=== PATIENT | male | born 1950 | race Caucasian/White ===

== ENCOUNTER 2016-09-22 10:08 | Inpatient (IN) | payer MEDICARE, OTHER ==
--- NOTE | 2016-09-22 10:21 | ER Document Report ---
ED Medical Screen (RME) - General Stated Complaint: LEG PAIN Notes: 66 yo male c/o having difficulty breathing, swelling to both legs, shortness of breath. Pt was seen in ED 09/11 for CHF. Pt has been increasing Lasix without improvement. Sat 82%. No chest pain TRAVEL OUTSIDE OF THE [place] IN LAST 30 DAYS: No - Related Data Allergies/Adverse Reactions: aspirin Allergy (Verified 09/22/16 10:16) Sulfa (Sulfonamide Antibiotics) Allergy (Verified 09/22/16 10:16)
[2016-09-22] MEDS ORDERED: FUROSEMIDE INJ/PF 40 MG/4 ML SDV IV ONE (10:57)
[2016-09-22 11:24] LABS: ABSOLUTE BASOPHILS # (AUTO) 0.1 10^3/uL (0.0-0.2); ABSOLUTE EOSINOPHILS # (AUTO) 0.4 10^3/uL (0.0-0.6); ABSOLUTE MONOCYTES (AUTO) 0.7 10^3/uL (0.1-1.4); ABSOLUTE NEUT (AUTO) 6.2 10^3/uL (1.7-8.2); BASOPHILS % (AUTO) 1.3 % (0-2); EOSINOPHILS % (AUTO) 3.7 % (0-6); HEMATOCRIT 37.4 % (37.9-51.0); HGB HCT DIFFERENCE -1.4; LYMPHOCYTES % (AUTO) 21.1 % (13-45); MEAN CORPUSCULAR HEMOGLOBIN 30.7 pg (27.0-33.4); MEAN CORPUSCULAR HGB CONC 32.1 g/dL (32.0-36.0); MEAN CORPUSCULAR VOLUME 96 fl (80-97); MONOCYTES % (AUTO) 7.7 % (3-13); RED CELL DISTRIBUTION WIDTH 15.3 % (11.5-14.0); SEGMENTED NEUTROPHILS % (AUTO) 66.2 % (42-78); WHITE BLOOD COUNT 9.4 10^3/uL (4.0-10.5)
[2016-09-22 11:26] LABS: APPEARANCE,URINE CLEAR; BILIRUBIN,URINE NEGATIVE (NEGATIVE); GLUCOSE, URINE NEGATIVE (NEGATIVE); KETONES,URINE NEGATIVE (NEGATIVE); LEUKOCYTE ESTERASE,URINE NEGATIVE (NEGATIVE); NITRITE,URINE NEGATIVE (NEGATIVE); PROTEIN,URINE NEGATIVE (NEGATIVE); URINE SPECIFIC GRAVITY 1.006; UROBILINOGEN,URINE NEGATIVE mg/dL (<2.0)
[2016-09-22 11:49] LABS: ALANINE AMINOTRANSFERASE 41 U/L (21-72); ALBUMIN 3.7 g/dL (3.5-5.0); ALKALINE PHOSPHATASE 98 U/L (38-126); ANION GAP 10 (5-19); ASPARTATE AMINO TRANSFERASE 33 U/L (17-59); BILIRUBIN,TOTAL 0.8 mg/dL (0.2-1.3); BLOOD UREA NITROGEN 26 mg/dL (7-20); CALCIUM 8.6 mg/dL (8.4-10.2); CARBON DIOXIDE 38 mmol/L (22-30); CHLORIDE 97 mmol/L (98-107); CREATINE KINASE 81 U/L (55-170); CREATININE RESULT 1.85 mg/dL (0.52-1.25); GLUCOSE 114 mg/dL (75-110); POTASSIUM 4.4 mmol/L (3.6-5.0); TOTAL PROTEIN 6.5 g/dL (6.3-8.2)
[2016-09-22 11:57] LABS: CREATINE KINASE MB 2.84 ng/mL (<4.55)
[2016-09-22 12:04] LABS: TROPONIN I 0.228 ng/mL
[2016-09-22 12:23] LABS: PROTHROMBIN TIME 15.1 SEC (11.4-15.4)
[2016-09-22 12:24] LABS: PARTIAL THROMBOPLASTIN TIME 30.6 SEC (23.5-35.8)
--- NOTE | 2016-09-22 12:40 | ER Document Report ---
ED General - General Chief Complaint: Edema Stated Complaint: LEG PAIN TRAVEL OUTSIDE OF THE [place] IN LAST 30 DAYS: No - HPI Patient complains to provider of: dyspnea on exertion orthopnea bilateral leg swelling Notes: Patient coming in was found to be hypoxic in triage and brought back to main ER. Patient states history of CHF COPD smoker patient states PCP is Dr. Zavala at the [facility]. Patient also states history of coronary artery disease with 3 stents placed at [facility] approximately 3 years ago. Patient at this time denies any chest pain. Patient was recently evaluated for CHF and signed out AGAINST MEDICAL ADVICE here in ER. Patient states he has been compliant with his medications. Patient states he has gained weight and does have bilateral lower extremity edema. Patient was treated for cellulitis that time states cellulitis has improved. Denies fevers states chills no nausea no vomiting no chest pain no abdominal pain no diarrhea - Related Data Allergies/Adverse Reactions: aspirin Allergy (Verified 09/22/16 10:16) Sulfa (Sulfonamide Antibiotics) Allergy (Verified 09/22/16 10:16) Home Medications: Current Home Medications Clonidine HCl 0.1 mg PO BID PRN 09/22/16 [History] Hydrocodone Bit/Acetaminophen [Hydrocodon-Acetaminophn 10-325] 1 each PO TID 05/01 [History] Meloxicam 7.5 mg PO DAILY 09/22/16 [History] Past Medical History - Social History Smoking Status: Unknown if Ever Smoked Chew tobacco use (# tins/day): No Frequency of alcohol use: None Drug Abuse: None Family History: Reviewed & Not Pertinent Patient has suicidal ideation: No Patient has homicidal ideation: No Review of Systems - Review of Systems Constitutional: No symptoms reported EENT: No symptoms reported Cardiovascular: No symptoms reported Respiratory: Cough, Short of breath, Wheezing Gastrointestinal: No symptoms reported Genitourinary: No symptoms reported Male Genitourinary: No symptoms reported Musculoskeletal: Leg swelling, Ankle swelling Skin: No symptoms reported Hematologic/Lymphatic: No symptoms reported Neurological/Psychological: No symptoms reported -: Yes All other systems reviewed and negative Physical Exam - Vital signs Vitals: Temp Pulse Resp BP Pulse Ox 98.3 F 83 21 H 183/76 H 83 L 09/22/16 10:16 09/22/16 10:16 09/22/16 10:16 09/22/16 10:16 09/22/16 10:16 Interpretation: Hypertensive, Hypoxic, Tachypneic - General General appearance: Appears well, Alert - HEENT Head: Normocephalic, Atraumatic Eyes: Normal Pupils: PERRL - Respiratory Respiratory status: Respiratory distress - Mild to moderate, Tachypnea Chest status: Nontender Breath sounds: Rales Chest palpation: Normal - Cardiovascular Rhythm: Regular Heart sounds: Normal auscultation Murmur: No - Abdominal Inspection: Normal Distension: No distension Bowel sounds: Normal Tenderness: Nontender Organomegaly: No organomegaly - Back Back: Normal, Nontender - Extremities General upper extremity: Normal inspection, Nontender, Normal color, Normal ROM , Normal temperature General lower extremity: Normal inspection, Nontender, Edema - 2-3+ bilaterally , Normal color, Normal ROM, Normal temperature, Normal weight bearing - Neurological Neuro grossly intact: Yes Cognition: Normal Orientation: AAOx4 Charles Coma Scale Eye Opening: Spontaneous Payette Coma Scale Verbal: Oriented Payette Coma Scale Motor: Obeys Commands Payette Coma Scale Total: 15 Speech: Normal Motor strength normal: LUE, RUE, LLE, RLE Sensory: Normal - Psychological Associated symptoms: Normal affect, Normal mood - Skin Skin Temperature: Warm Skin Moisture: Dry Skin Color: Normal Course - Re-evaluation Re-evalutation: 09/22/16 13:29 Patient coming in hypoxic tachypnea with a 10 pound weight gain since last visit presented today for evaluation of orthopnea dyspnea on exertion. Patient' s presentation is consistent with CHF/duration. Patient was hypoxic requiring 4 L of oxygen upon his arrival. Patient was given a dose of Lasix and have about 1000 mL of output. After this patient states breathing better. Was able to titrate the patient's O2 demands down to 2 L. Patient's lab work does show small elevation in troponin at 0.2. More likely this is due to patient CHF exacerbation and hypoxemia. Patient denies chest pain at this time does not think there is any signs or symptoms consistent with acs. Aspirin was held due to the patient being allergic. With improvement patient was continued to require oxygen he has no home oxygen use. Patient was referred to the hospitalist for further evaluation and admission. - Vital Signs Vital signs: Temp Pulse Resp BP Pulse Ox 98.3 F 83 11 L 173/97 H 93 09/22/16 10:16 09/22/16 10:16 09/22/16 12:01 09/22/16 12:01 09/22/16 12:01 - Laboratory Result Diagrams: 09/22/16 11:05 09/22/16 11:05 Laboratory results interpreted by me: 09/22/16 09/22/16 09/22/16 11:05 11:05 11:05 RBC 3.90 L Hgb 12.0 L Hct 37.4 L RDW 15.3 H Chloride 97 L Carbon Dioxide 38 H BUN 26 H Creatinine 1.85 H Est GFR ( Amer) 44 L Est GFR (Non-Af Amer) 37 L Glucose 114 H NT-Pro-B Natriuret Pep 5550 H Critical Care Note - Critical Care Note Total time excluding time spent on procedures (mins): 35 Comments: Multiple evaluations patient presenting with hypoxia CHF exacerbation requiring oxygen Discharge - Discharge Clinical Impression: CHF (congestive heart failure), Hypoxemia, Hypertension, Peripheral edema Disposition: ADMITTED INPATIENT Admitting Provider: Hospitalist - [facility] Unit Admitted: [facility]
[2016-09-22] MEDS ORDERED: CLONIDINE HCL 0.1 MG TABLET PO PRN (13:16)
--- NOTE | 2016-09-22 14:33 | PDOC H&P ---
History of Present Illness Admission Date/PCP: 09/22/16 13:10 Patient complains of: Shortness of breath and lower extremity edema. History of Present Illness: JULIETH BRYAN is a 66 year old male who presents with a three-week history of worsening lower extremity edema, weight gain, dyspnea on exertion as well as orthopnea and PND. Patient has no history of congestive heart failure but does have a history of coronary artery disease. The patient was reports that he has seen several physicians over the last 3 weeks because of his lower extremity edema. At one time he was told it was gout and another time he was told it was cellulitis. The patient has been taking Celebrex twice a day daily because of arthritis and possible count. The patient denies any chest pain associated with this. He denies any palpitations or tachycardia. The patient has had 3 pillow orthopnea and has very significant edema up to mid thigh area. The patient normally is followed at the [facility]. Past Medical History Cardiac Medical History: Reports: Coronary Artery Disease, Hypertension Pulmonary Medical History: Reports: None EENT Medical History: Reports: None Neurological Medical History: Reports: None Endocrine Medical History: Reports: None Renal/ Medical History: Reports: Chronic Kidney Disease Malignancy Medical History: Reports: None GI Medical History: Reports: Gastroesophageal Reflux Disease Musculoskeltal Medical History: Reports: Arthritis Skin Medical History: Reports: None Psychiatric Medical History: Reports: None Traumatic Medical History: Reports: None Hematology: Reports: None Infectious Medical History: Reports: None Past Surgical History Past Surgical History: Reports: Orthopedic Surgery - Patient has had bilateral shoulder joint replacements. Social History Information Source: Patient Lives with: Spouse/Significant other Smoking Status: Former Smoker Frequency of Alcohol Use: None Hx Recreational Drug Use: No Drugs: None - Advance Directive Resuscitation Status: Full Code Family History Family History: Mother at age 53 from an aneurysm. Father at age 63 and had coronary artery disease. Parental Family History Reviewed: Yes Children Family History Reviewed: No Sibling(s) Family History Reviewed.: No Medication/Allergy Home Medications: Celecoxib [Celebrex 200 mg Capsule] 200 mg PO Q12 #60 capsule 09/11/16 Furosemide 60 mg PO DAILY 5 Days 09/11/16 Clonidine HCl 0.1 mg PO BID PRN 09/22/16 Hydrocodone Bit/Acetaminophen [Hydrocodon-Acetaminophn 10-325] 1 each PO TID 05/01 Meloxicam 7.5 mg PO DAILY 09/22/16 Allergies/Adverse Reactions: aspirin Allergy (Verified 09/22/16 10:16) Sulfa (Sulfonamide Antibiotics) Allergy (Verified 09/22/16 10:16) Review of Systems Constitutional: PRESENT: weight gain. ABSENT: chills, fever(s), headache(s), weight loss Eyes: ABSENT: visual disturbances Ears: ABSENT: hearing changes Cardiovascular: PRESENT: dyspnea on exertion, edema, orthropnea. ABSENT: chest pain, palpitations Respiratory: PRESENT: dyspnea. ABSENT: cough, hemoptysis Gastrointestinal: PRESENT: heartburn. ABSENT: abdominal pain, constipation, diarrhea, hematemesis, hematochezia, nausea, vomiting Genitourinary: ABSENT: dysuria, hematuria Musculoskeletal: ABSENT: joint swelling Integumentary: PRESENT: other - Has had some erythema and swelling of his bilateral legs. Neurological: ABSENT: abnormal gait, abnormal speech, confusion, dizziness, focal weakness, syncope Psychiatric: ABSENT: anxiety, depression Endocrine: ABSENT: cold intolerance, heat intolerance, polydipsia, polyuria Hematologic/Lymphatic: ABSENT: easy bleeding, easy bruising Physical Exam Vital Signs: Temp Pulse Resp BP Pulse Ox 97.5 F 83 23 H 152/87 H 91 L 09/22/16 13:58 09/22/16 10:16 09/22/16 14:02 09/22/16 14:02 09/22/16 14:02 Intake & Output 09/21/16 09/22/16 09/23/16 06:59 06:59 06:59 Output Total 750 Balance -750 General appearance: PRESENT: no acute distress, morbidly obese Head exam: PRESENT: atraumatic, normocephalic Eye exam: PRESENT: conjunctiva pink, EOMI, PERRLA. ABSENT: scleral icterus Ear exam: PRESENT: normal external ear exam Mouth exam: PRESENT: moist, tongue midline Neck exam: ABSENT: carotid bruit, JVD, lymphadenopathy, thyromegaly Respiratory exam: PRESENT: rales - Bibasilar respiratory Rales. ABSENT: rhonchi , wheezes Cardiovascular exam: PRESENT: RRR. ABSENT: diastolic murmur, rubs, systolic murmur Vascular exam: PRESENT: normal capillary refill GI/Abdominal exam: PRESENT: normal bowel sounds, soft. ABSENT: distended, guarding, mass, organolmegaly, rebound, tenderness Rectal exam: PRESENT: deferred Extremities exam: PRESENT: +2 edema. ABSENT: calf tenderness, clubbing Neurological exam: PRESENT: alert, awake, oriented to person, oriented to place , oriented to time, oriented to situation Psychiatric exam: PRESENT: appropriate affect Skin exam: PRESENT: intact - Bilateral lower sternum of the skin is erythematous and edematous but is intact, warm Results Impressions: Chest X-Ray 09/22/16 10:21 IMPRESSION: Suspect mild CHF. Similar appearance compared to prior. Assessment & Plan - Diagnosis (1) CHF (congestive heart failure) Is this a current diagnosis for this admission?: YesPlan: Patient has a three-week worsening history of lower extremity edema, orthopnea, PND. The patient has chest x-ray that does show also pulmonary edema and has a positive troponin. This most likely represents systolic dysfunction although he has not had an echocardiogram. We will admit and monitor on telemetry. We will check serial cardiac enzymes and check an echocardiogram. We will give IV Lasix to treat this. (2) Coronary artery disease Is this a current diagnosis for this admission?: YesPlan: The patient denies any chest pain. He has elevated troponin which most likely secondary to his underlying congestive heart failure not to the coronary artery disease. We'll continue with aspirin. Please note that he has aspirin listed as allergy however he has been taking it every day for many years. (3) Chronic renal failure, stage 2 (mild) Is this a current diagnosis for this admission?: YesPlan: The patient reports he was unaware that he had any kidney problems however labs done last month showed him to have a creatinine 1.4. We'll treat with IV Lasix for his congestive heart failure. (4) Hypertension Is this a current diagnosis for this admission?: YesPlan: Because he has congestive heart failure we will add on an MARGARITA inhibitor. (5) Osteoarthritis Is this a current diagnosis for this admission?: YesPlan: Patient has been taking Mobic and Celebrex for his arthritis. This may be contributing some to his congestive heart failure and we will DC his medications. (6) Gastroesophageal reflux disease Is this a current diagnosis for this admission?: Yes - Time Time Spent: 50 to 70 Minutes - Inpatient Certification Medical Necessity: Need Close Monitoring Due to Risk of Patient Decompensation - Plan Summary Plan Summary: Patient will be made a regular admission as I anticipate this will require greater than 2 midnight hospital stay.
[2016-09-22] MEDS ORDERED: HYDROCODONE/ACETAMINOPHEN 10-325 MG TABLET PO ONE (15:00)
[2016-09-22 15:15] LABS: CREATINE KINASE MB 2.91 ng/mL (<4.55)
[2016-09-22 15:25] LABS: TROPONIN I 0.21 ng/mL
[2016-09-22] MEDS ORDERED: LISINOPRIL 5 MG TABLET PO ONE (15:30)
[2016-09-22] MEDS ORDERED: ENOXAPARIN SODIUM INJ 40 MG/0.4 ML DISP.SYRIN SUBCUT ONE (16:00)
[2016-09-22] MEDS: MORPHINE SULFATE 10 MG/ML INJ IV PRN (20:23)
[2016-09-22] MEDS: METOPROLOL TARTRATE 25 MG TABLET PO SCH (21:09)
[2016-09-22] MEDS: HYDROCODONE/ACETAMINOPHEN 10-325 MG TABLET PO SCH (21:09)
[2016-09-22] MEDS: CLONIDINE HCL 0.1 MG TABLET PO SCH (21:10)
[2016-09-22] MEDS: FUROSEMIDE INJ/PF 20 MG/2 ML SDV IV SCH (21:10)
[2016-09-22] MEDS: FAMOTIDINE 20 MG TABLET PO SCH (21:12)
[2016-09-22 21:19] LABS: CREATINE KINASE MB 2.22 ng/mL (<4.55); TROPONIN I 0.214 ng/mL
--- NOTE | 2016-09-22 21:33 | EKG REPORT ---
SEVERITY:- BORDERLINE ECG - SINUS RHYTHM VENTRICULAR PREMATURE COMPLEX BORDERLINE PROLONGED QT INTERVAL : Confirmed by: Jason Azar 22-Sep-2016 21:31:52
[2016-09-23 03:04] LABS: ABSOLUTE BASOPHILS # (AUTO) 0.1 10^3/uL (0.0-0.2); ABSOLUTE EOSINOPHILS # (AUTO) 0.4 10^3/uL (0.0-0.6); ABSOLUTE LYMPHOCYTES (AUTO) 2.7 10^3/uL (0.5-4.7); ABSOLUTE MONOCYTES (AUTO) 0.7 10^3/uL (0.1-1.4); ABSOLUTE NEUT (AUTO) 4.8 10^3/uL (1.7-8.2); EOSINOPHILS % (AUTO) 4.7 % (0-6); HEMATOCRIT 36.8 % (37.9-51.0); HEMOGLOBIN 12.2 g/dL (13.5-17.0); HGB HCT DIFFERENCE -0.2; LYMPHOCYTES % (AUTO) 31.2 % (13-45); MEAN CORPUSCULAR HEMOGLOBIN 31.1 pg (27.0-33.4); MEAN CORPUSCULAR VOLUME 94 fl (80-97); MONOCYTES % (AUTO) 8.5 % (3-13); RED BLOOD COUNT 3.91 10^6/uL (4.35-5.55); RED CELL DISTRIBUTION WIDTH 15.2 % (11.5-14.0); SEGMENTED NEUTROPHILS % (AUTO) 54.6 % (42-78); WHITE BLOOD COUNT 8.8 10^3/uL (4.0-10.5)
[2016-09-23 03:11] LABS: ANION GAP 12 (5-19); BLOOD UREA NITROGEN 25 mg/dL (7-20); CALCIUM 8.5 mg/dL (8.4-10.2); CARBON DIOXIDE 35 mmol/L (22-30); CHLORIDE 96 mmol/L (98-107); CREATINE KINASE 69 U/L (55-170); CREATININE RESULT 1.82 mg/dL (0.52-1.25); GLUCOSE 90 mg/dL (75-110); MAGNESIUM 1.3 mg/dL (1.6-2.3); POTASSIUM 4.5 mmol/L (3.6-5.0); SODIUM 142.7 mmol/L (137-145)
[2016-09-23 03:18] LABS: CREATINE KINASE MB 1.96 ng/mL (<4.55); TROPONIN I 0.207 ng/mL
[2016-09-23] MEDS: HYDROCODONE/ACETAMINOPHEN 10-325 MG TABLET PO SCH ×3 (05:26→21:17)
[2016-09-23] MEDS: ENOXAPARIN SODIUM INJ 40 MG/0.4 ML DISP.SYRIN SUBCUT SCH (09:02)
[2016-09-23] MEDS: FUROSEMIDE INJ/PF 20 MG/2 ML SDV IV SCH (09:02)
[2016-09-23] MEDS: ASPIRIN 81 MG TABLET, ENT COATED PO SCH (09:03)
[2016-09-23] MEDS: METOPROLOL TARTRATE 25 MG TABLET PO SCH ×2 (09:03→21:17)
[2016-09-23] MEDS: FAMOTIDINE 20 MG TABLET PO SCH ×2 (09:04→21:16)
[2016-09-23] MEDS: LISINOPRIL 5 MG TABLET PO SCH (09:04)
[2016-09-23] MEDS: CLONIDINE HCL 0.1 MG TABLET PO SCH ×2 (09:04→21:16)
--- NOTE | 2016-09-23 09:21 | PDOC PROGRESS REPORT ---
Subjective Progress Note for:: 09/23/16 Subjective:: Reports he's less short of breath today. Physical Exam Vital Signs: Temp Pulse Resp BP Pulse Ox 97.9 F 65 20 156/81 H 98 09/23/16 05:11 09/23/16 07:00 09/23/16 05:11 09/23/16 05:11 09/23/16 05:11 Intake & Output 09/22/16 09/23/16 09/24/16 06:59 06:59 06:59 Intake Total 1860 Output Total 2575 Balance -715 Weight 127.9 kg General appearance: PRESENT: no acute distress Eye exam: PRESENT: conjunctiva pink Mouth exam: PRESENT: moist, tongue midline Neck exam: ABSENT: JVD Respiratory exam: PRESENT: clear to auscultation sumeet. ABSENT: rales, rhonchi, wheezes Cardiovascular exam: PRESENT: RRR. ABSENT: diastolic murmur, rubs, systolic murmur GI/Abdominal exam: PRESENT: normal bowel sounds, soft. ABSENT: distended, guarding, mass, organolmegaly, rebound, tenderness Extremities exam: PRESENT: +2 edema Neurological exam: PRESENT: alert, awake, oriented to person, oriented to place , oriented to time, oriented to situation Psychiatric exam: PRESENT: appropriate affect Skin exam: PRESENT: dry, intact, warm. ABSENT: cyanosis, rash Results Laboratory Results: 09/23/16 02:34 09/23/16 02:34 09/23/16 09/23/16 02:34 02:34 WBC 8.8 RBC 3.91 L Hgb 12.2 L Hct 36.8 L MCV 94 MCH 31.1 MCHC 33.0 RDW 15.2 H Plt Count 277 Seg Neutrophils % 54.6 Lymphocytes % 31.2 Monocytes % 8.5 Eosinophils % 4.7 Basophils % 1.0 Absolute Neutrophils 4.8 Absolute Lymphocytes 2.7 Absolute Monocytes 0.7 Absolute Eosinophils 0.4 Absolute Basophils 0.1 Sodium 142.7 Potassium 4.5 Chloride 96 L Carbon Dioxide 35 H Anion Gap 12 BUN 25 H Creatinine 1.82 H Est GFR ( Amer) 45 L Est GFR (Non-Af Amer) 37 L Glucose 90 Calcium 8.5 Magnesium 1.3 L 09/22/16 09/22/16 09/22/16 14:29 14:29 20:10 Creatine Kinase 89 72 CK-MB (CK-2) 2.91 Troponin I 0.210 09/22/16 09/23/16 09/23/16 20:10 02:34 02:34 Creatine Kinase 69 CK-MB (CK-2) 2.22 1.96 Troponin I 0.214 0.207 Impressions: Chest X-Ray 09/22/16 10:21 IMPRESSION: Suspect mild CHF. Similar appearance compared to prior. Assessment & Plan - Diagnosis (1) CHF (congestive heart failure) Is this a current diagnosis for this admission?: YesPlan: Patient has a three-week worsening history of lower extremity edema, orthopnea, PND. The patient has chest x-ray that does show also pulmonary edema and has a positive troponin. Positive troponins most likely secondary to the congestive heart failure. He has not had any chest pain. This most likely represents systolic dysfunction. The patient is to have an echocardiogram done today. We will give IV Lasix to treat this. (2) Coronary artery disease Is this a current diagnosis for this admission?: YesPlan: The patient denies any chest pain. He has elevated troponin which most likely secondary to his underlying congestive heart failure not to the coronary artery disease. We'll continue with aspirin. Please note that he has aspirin listed as allergy however he has been taking it every day for many years. (3) Chronic renal failure, stage 2 (mild) Is this a current diagnosis for this admission?: YesPlan: The patient reports he was unaware that he had any kidney problems however labs done last month showed him to have a creatinine 1.4. We'll treat with IV Lasix for his congestive heart failure. (4) Hypertension Is this a current diagnosis for this admission?: YesPlan: Because he has congestive heart failure we will add on an MARGARITA inhibitor. (5) Osteoarthritis Is this a current diagnosis for this admission?: YesPlan: Patient has been taking Mobic and Celebrex for his arthritis. This may be contributing some to his congestive heart failure and has been stopped. (6) Gastroesophageal reflux disease Is this a current diagnosis for this admission?: Yes - Time Time Spent with patient: 25-34 minutes - Inpatient Certification Medical Necessity: Need Close Monitoring Due to Risk of Patient Decompensation - Plan Summary Plan Summary: Patient is improved and we will continue with the IV Lasix.
[2016-09-23] MEDS: MORPHINE SULFATE 10 MG/ML INJ IV PRN ×2 (15:45→20:16)
[2016-09-23] MEDS: FUROSEMIDE INJ/PF 40 MG/4 ML SDV IV SCH (21:17)
--- NOTE | 2016-09-23 23:20 | XCELERA REPORT ---
[address] [address] Transthoracic Echocardiogram Report Name: JULIETH BRYAN Age: 66 yrs Gender: Male : 1950 Patient Status: Inpatient Patient Location: [id number]\S\313\[id number]\A Study Date: 09/23/2016 02:18 PM Height: 71 in Weight: 281 lb BSA: 2.4 m2 Procedure: A complete two-dimensional transthoracic echocardiogram was performed (2D, M-mode, spectral and color flow Doppler). The study was technically difficult with many images being suboptimal in quality. Reason For Study: chf Ordering Physician: MADELINE SIERRA Performed By: Libby Weller Interpretation Summary Due to the poor quality of the echocardiogram, an assessment of left ventricular ejection fraction cannot be made. Best estimate is LVEF is wnl. Doppler measurements suggest pseudonormalized left ventricular relaxation, which is associated with grade II/IV or mild to moderate diastolic dysfunction There is mild concentric left ventricular hypertrophy. The left ventricle is grossly normal size. Regional wall motion abnormalities cannot be excluded due to limited visualization. The right ventricle is moderately dilated. The right ventricle appears to be hypertrophied The right ventricular systolic function is mildly reduced. The right atrium is moderately dilated. The left atrium is moderately dilated. There is a mild amount of mitral regurgitation There is mild aortic stenosis There is a mild amount of aortic regurgitation There is a mild amount of tricuspid regurgitation There is servere pulmonary hypertension by echo Right ventricular systolic pressure is estimated to be elevated at >60mmHg. The inferior vena cava appeared normal and decreased > 50% with respiration (RAP 5-10 mmHg) There is no pericardial effusion. MMode/2D Measurements \T\ Calculations RVDd: 4.0 cm LVIDd: 5.4 cm FS: 25.6 % Ao root diam: 3.6 cm IVSd: 1.0 cm LVIDs: 4.0 cm EDV(Teich): 142.6 ml LVPWd: 1.0 cm ESV(Teich): 71.4 ml Ao root area: 10.0 cm2 EF(Teich): 49.9 % LA dimension: 5.2 cm Doppler Measurements \T\ Calculations MV E max juno: MV P1/2t max juno: Ao V2 max: LV V1 max P.7 cm/sec 103.2 cm/sec 206.3 cm/sec 4.0 mmHg MV A max juno: MV P1/2t: 54.9 msec Ao max PG: LV V1 max: 76.0 cm/sec 17.0 mmHg 99.7 cm/sec MV E/A: 1.4 MVA(P1/2t): 4.0 cm2 MV dec slope: 550.1 cm/sec2 MV dec time: 0.19 sec PA V2 max: PI end-d juno: TR max juno: 84.9 cm/sec 210.4 cm/sec 484.6 cm/sec PA max P.9 mmHg TR max P.9 mmHg Left Ventricle The left ventricle is grossly normal size. There is mild concentric left ventricular hypertrophy. Due to the poor quality of the echocardiogram, an assessment of left ventricular ejection fraction cannot be made. Best estimate is LVEF is wnl. Doppler measurements suggest pseudonormalized left ventricular relaxation, which is associated with grade II/IV or mild to moderate diastolic dysfunction. Regional wall motion abnormalities cannot be excluded due to limited visualization. Right Ventricle The right ventricle is moderately dilated. The right ventricle appears to be hypertrophied. The right ventricular systolic function is mildly reduced. Atria The right atrium is moderately dilated. The left atrium is moderately dilated. Interarterial septum not well visualized and not well dopplered. Cannot comment on ASD/PFO presence. Mitral Valve There is mild mitral annular calcification. There is no mitral valve stenosis. There is a mild amount of mitral regurgitation. Aortic Valve The aortic valve is mildly calcified. The aortic valve is not well visualized secondary to technical limitations. There is mild aortic stenosis. There is a mild amount of aortic regurgitation. Tricuspid Valve The tricuspid valve is not well visualized, but is grossly normal. There is no tricuspid stenosis. There is a mild amount of tricuspid regurgitation. There is servere pulmonary hypertension by echo. Right ventricular systolic pressure is estimated to be elevated at >60mmHg. Pulmonic Valve The pulmonic valve is not well visualized. There is a mild amount of pulmonic regurgitation. Great Vessels The aortic root is not well visualized. The inferior vena cava appeared normal and decreased > 50% with respiration (RAP 5-10 mmHg). Effusions There is no pericardial effusion. : MADELINE SIERRA > Jason Azar
[2016-09-24 04:47] LABS: ABSOLUTE BASOPHILS # (AUTO) 0.1 10^3/uL (0.0-0.2); ABSOLUTE EOSINOPHILS # (AUTO) 0.5 10^3/uL (0.0-0.6); ABSOLUTE LYMPHOCYTES (AUTO) 2.2 10^3/uL (0.5-4.7); ABSOLUTE MONOCYTES (AUTO) 0.9 10^3/uL (0.1-1.4); ABSOLUTE NEUT (AUTO) 4.6 10^3/uL (1.7-8.2); BASOPHILS % (AUTO) 1.5 % (0-2); EOSINOPHILS % (AUTO) 5.5 % (0-6); HEMATOCRIT 35.6 % (37.9-51.0); HEMOGLOBIN 11.7 g/dL (13.5-17.0); HGB HCT DIFFERENCE -0.5; MEAN CORPUSCULAR HEMOGLOBIN 30.9 pg (27.0-33.4); MEAN CORPUSCULAR HGB CONC 32.7 g/dL (32.0-36.0); MEAN CORPUSCULAR VOLUME 95 fl (80-97); MONOCYTES % (AUTO) 10.4 % (3-13); RED BLOOD COUNT 3.77 10^6/uL (4.35-5.55); RED CELL DISTRIBUTION WIDTH 15.3 % (11.5-14.0); SEGMENTED NEUTROPHILS % (AUTO) 55.6 % (42-78); WHITE BLOOD COUNT 8.2 10^3/uL (4.0-10.5)
[2016-09-24] MEDS: HYDROCODONE/ACETAMINOPHEN 10-325 MG TABLET PO SCH ×3 (05:18→21:55)
[2016-09-24 05:33] LABS: ANION GAP 7 (5-19); BLOOD UREA NITROGEN 28 mg/dL (7-20); CALCIUM 8.3 mg/dL (8.4-10.2); CARBON DIOXIDE 39 mmol/L (22-30); CHLORIDE 95 mmol/L (98-107); CREATININE RESULT 1.68 mg/dL (0.52-1.25); GLUCOSE 88 mg/dL (75-110); POTASSIUM 4.5 mmol/L (3.6-5.0); SODIUM 140.7 mmol/L (137-145)
[2016-09-24] MEDS: MORPHINE SULFATE 10 MG/ML INJ IV PRN ×3 (05:58→22:11)
[2016-09-24] MEDS: CLONIDINE HCL 0.1 MG TABLET PO SCH (09:19)
[2016-09-24] MEDS: ENOXAPARIN SODIUM INJ 40 MG/0.4 ML DISP.SYRIN SUBCUT SCH (09:19)
[2016-09-24] MEDS: LISINOPRIL 5 MG TABLET PO SCH (09:20)
[2016-09-24] MEDS: ASPIRIN 81 MG TABLET, ENT COATED PO SCH (09:20)
[2016-09-24] MEDS: FAMOTIDINE 20 MG TABLET PO SCH ×2 (09:20→21:56)
[2016-09-24] MEDS: FUROSEMIDE INJ/PF 40 MG/4 ML SDV IV SCH ×2 (09:21→22:00)
[2016-09-24] MEDS: METOPROLOL TARTRATE 25 MG TABLET PO SCH ×2 (09:21→21:56)
--- NOTE | 2016-09-24 15:48 | PDOC PROGRESS REPORT ---
Subjective Progress Note for:: 09/24/16 Subjective:: Shortness of breath is better. No chest pain. Lower extremity edema is less. No chills or fever. No nausea or vomiting. No diaphoresis. Quit smoking a year ago. Seen by his process description writer in [place] a few months ago. Told he has a leaky valve. Physical Exam Vital Signs: Temp Pulse Resp BP Pulse Ox 98.0 F 82 16 142/81 H 92 09/24/16 07:14 09/24/16 14:00 09/24/16 07:14 09/24/16 07:14 09/24/16 07:14 Intake & Output 09/23/16 09/24/16 09/25/16 06:59 06:59 06:59 Intake Total 1860 2320 Output Total 2575 3500 Balance -715 -1180 Weight 127.9 kg 128 kg General appearance: PRESENT: no acute distress, cooperative, morbidly obese Head exam: PRESENT: normocephalic Eye exam: PRESENT: EOMI Mouth exam: PRESENT: moist, neck supple Neck exam: PRESENT: other - Prominent neck veins. ABSENT: carotid bruit Respiratory exam: PRESENT: clear to auscultation [place], rales - Dry posteriorly bilateral of the lower lung velez, unlabored. ABSENT: wheezes Cardiovascular exam: PRESENT: RRR. ABSENT: gallop GI/Abdominal exam: PRESENT: hypoactive bowel sounds, soft. ABSENT: distended, tenderness Extremities exam: PRESENT: +2 edema - Bilateral Neurological exam: PRESENT: alert, awake, oriented to situation Psychiatric exam: PRESENT: normal mood Skin exam: PRESENT: dry, warm. ABSENT: cyanosis Results Laboratory Results: 09/24/16 04:23 09/24/16 04:23 09/24/16 09/24/16 04:23 04:23 WBC 8.2 RBC 3.77 L Hgb 11.7 L Hct 35.6 L MCV 95 MCH 30.9 MCHC 32.7 RDW 15.3 H Plt Count 242 Seg Neutrophils % 55.6 Lymphocytes % 27.0 Monocytes % 10.4 Eosinophils % 5.5 Basophils % 1.5 Absolute Neutrophils 4.6 Absolute Lymphocytes 2.2 Absolute Monocytes 0.9 Absolute Eosinophils 0.5 Absolute Basophils 0.1 Sodium 140.7 Potassium 4.5 Chloride 95 L Carbon Dioxide 39 H Anion Gap 7 BUN 28 H Creatinine 1.68 H Est GFR ( Amer) 49 L Est GFR (Non-Af Amer) 41 L Glucose 88 Calcium 8.3 L 09/22/16 09/22/16 09/22/16 14:29 14:29 20:10 Creatine Kinase 89 72 CK-MB (CK-2) 2.91 Troponin I 0.210 09/22/16 09/23/16 09/23/16 20:10 02:34 02:34 Creatine Kinase 69 CK-MB (CK-2) 2.22 1.96 Troponin I 0.214 0.207 Impressions: Chest X-Ray 09/22/16 10:21 IMPRESSION: Suspect mild CHF. Similar appearance compared to prior. Assessment & Plan - Diagnosis (1) CHF (congestive heart failure) Qualifiers: Congestive heart failure type: diastolic Congestive heart failure chronicity: acute on chronic Qualified Code(s): I50.33 - Acute on chronic diastolic (congestive) heart failure Is this a current diagnosis for this admission?: Yes (2) Chronic renal failure Qualifiers: Chronic kidney disease stage: stage 3 (moderate) Qualified Code(s): N18.3 - Chronic kidney disease, stage 3 (moderate) Is this a current diagnosis for this admission?: Yes (3) Coronary artery disease Qualifiers: Coronary Disease-Associated Artery/Lesion type: unspecified vessel or lesion type [place] vs. transplanted heart: [place] heart Associated angina: without angina Qualified Code(s): I25.10 - Atherosclerotic heart disease of [place] coronary artery without angina pectoris Is this a current diagnosis for this admission?: Yes (4) Gastroesophageal reflux disease Qualifiers: Esophagitis presence: without esophagitis Qualified Code(s): K21.9 - Gastro-esophageal reflux disease without esophagitis Is this a current diagnosis for this admission?: Yes (5) Hypertension Qualifiers: Hypertension type: essential hypertension Qualified Code(s): I10 - Essential (primary) hypertension Is this a current diagnosis for this admission?: Yes (6) Pulmonary hypertension Is this a current diagnosis for this admission?: Yes (7) Osteoarthritis Qualifiers: Osteoarthritis location: unspecified site Osteoarthritis type: unspecified Qualified Code(s): M19.90 - Unspecified osteoarthritis, unspecified site Is this a current diagnosis for this admission?: Yes - Time Time Spent with patient: 25-34 minutes - Plan Summary Plan Summary: Discontinue clonidine. Begin amlodipine. Continue beta debbie. Continue antiplatelet therapy and oxygen supplement. Consult cardiology for the abnormal troponins. Continue diuretics for now.
[2016-09-24] MEDS ORDERED: AMLODIPINE BESYLATE 5 MG TABLET PO ONE (16:15)
--- NOTE | 2016-09-24 16:26 | PDOC CONSULTATION ---
Consultation Consult Date: 09/24/16 Attending physician:: BETHEL OCAMPO Consult reason:: Dyspnea, abnormal troponin I, CHF History of Present Illness Admission Date/PCP: 09/22/16 13:10 Patient complains of: Shortness of breath and pedal edema History of Present Illness: JULIETH BRYAN is a 66 year old male who presents with a three-week history of worsening lower extremity edema, weight gain, dyspnea on exertion as well as orthopnea and PND. Patient has no history of congestive heart failure but does have a history of coronary artery disease. The patient was reports that he has seen several physicians over the last 3 weeks because of his lower extremity edema. At one time he was told it was gout and another time he was told it was cellulitis. The patient has been taking Celebrex twice a day daily because of arthritis and possible count. The patient denies any chest pain associated with this. He denies any palpitations or tachycardia. The patient has had 3 pillow orthopnea and has very significant edema up to mid thigh area. The patient normally is followed at the [facility]. history reviewed. Agree with this history. Patient claims had a stress test within the last 1 year and was cleared for orthopedic surgery. He cannot remember the name of the furnace builder or facility where he had this done. Patient gives history of stent placement in his heart about 3 years ago for chest pain. There has been no recurrence of chest pain. Past Medical History Cardiac Medical History: Reports: Coronary Artery Disease, Hypertension Pulmonary Medical History: Reports: None EENT Medical History: Reports: None Neurological Medical History: Reports: None Endocrine Medical History: Reports: None Renal/ Medical History: Reports: Chronic Kidney Disease Malignancy Medical History: Reports: None GI Medical History: Reports: Gastroesophageal Reflux Disease Musculoskeltal Medical History: Reports: Arthritis Skin Medical History: Reports: None Psychiatric Medical History: Reports: None Traumatic Medical History: Reports: None Hematology: Reports: None Infectious Medical History: Reports: None Past Surgical History Past Surgical History: Reports: Orthopedic Surgery - Patient has had bilateral shoulder joint replacements. Social History Information Source: Patient Lives with: Spouse/Significant other Smoking Status: Former Smoker Number of Years Smokin Frequency of Alcohol Use: Rare Hx Recreational Drug Use: No Drugs: None Hx Prescription Drug Abuse: No - Advance Directive Resuscitation Status: Full Code Family History Family History: Reviewed & Not Pertinent Parental Family History Reviewed: Yes Children Family History Reviewed: Yes Sibling(s) Family History Reviewed.: Yes - Negative for premature coronary artery disease or sudden cardiac in the family amongst first degree relatives. Medication/Allergy Home Medications: Celecoxib [Celebrex 200 mg Capsule] 200 mg PO Q12 #60 capsule 09/11/16 Furosemide 60 mg PO DAILY 5 Days 09/11/16 Clonidine HCl 0.1 mg PO BID PRN 09/22/16 Hydrocodone Bit/Acetaminophen [Hydrocodon-Acetaminophn 10-325] 1 each PO TID 05/01 Meloxicam 7.5 mg PO DAILY 09/22/16 Allergies/Adverse Reactions: Sulfa (Sulfonamide Antibiotics) Allergy (Verified 09/22/16 10:16) aspirin Adverse Reaction (Mild, Verified 09/22/16 14:43) Review of Systems Review of Systems: Please see history of present illness and past medical history as wall. Constitutional: No fever or chills reported. Head : No recent chronic headaches, recent head injury. Eyes: No recent eye pain, diplopia, redness, discharge, acute visual changes. Ears: No recent chronic ear pain, acute hearing loss, ear discharge. Oral cavity: No recent ulcerations, bleeding, oral cavity discomfort. Neck: No recent acute neck pain reported. Hematologic: No recent easy bruising or bleeding or hematologic malignancy reported. Lymphatic: No recent lymphatic malignancy, chronic lymphadenopathy reported yet Cardiovascular system review: See history of present illness. Increasing pedal edema and dyspnea. No palpitations, syncope, near syncope. Respiratory system review: No recent chronic cough, hemoptysis, blood clots in the lungs reported. Mild Shortness of breath on exertion Gastrointestinal system review: Negative for any recent acute or chronic abdominal pain, hematemesis, melena, recent change in bowel habits. Genitourinary system review: No recent acute or chronic hematuria, flank pain, UTI etc. reported. Skin system review: Negative for any recent abnormal bruising, no rash, no pruritus reported. Describes increasing pedal edema. Neurologic: No prior history of strokes, mini strokes, seizure disorder. Psychologic: No history of major psychosis or depression reported. Musculoskeletal: Minor aches and pains reported. No acute joint swelling reported. Endocrine: No recent polyuria, polydipsia, recent heat or cold intolerance. Physical Exam Vital Signs: Temp Pulse Resp BP Pulse Ox 98.0 F 82 16 142/81 H 92 09/24/16 07:14 09/24/16 14:00 09/24/16 07:14 09/24/16 07:14 09/24/16 07:14 Intake & Output 09/23/16 09/24/16 09/25/16 06:59 06:59 06:59 Intake Total 1860 2320 Output Total 2575 3500 Balance -715 -1180 Weight 127.9 kg 128 kg Exam: GENERAL: well-nourished and in no acute distress. Alert and oriented x3 HEAD: Atraumatic, normocephalic. EYES: Pupils equal round and reactive to light, extraocular movements intact, sclera anicteric, conjunctiva are normal. ENT: TMs normal, nares patent, oropharynx clear without exudates. Moist mucous membranes. No oral ulcerations or bleeding gums noted NECK: supple without lymphadenopathy. Trachea is central. No cervical or axillary lymphadenopathy noted. Carotids are 2+, JVD 15 CM, TO THE ANGLE OF JAW. LUNGS: Respiration seems nonlabored, no significant accessory muscle action noted. Bibasal a fine crackles noted. No wheezes rales or rhonchi. Mild bilateral basal dullness noted. CHEST: Palpation of the chest wall shows no significant chest wall tenderness or abnormalities. HEART: [place] [employer]ANT, No PSH, 1/6 [place] aortic area, 1/6 [place] systolic murmur mitral area, no rubs, no gallops. ABDOMEN: Soft, no significant tenderness appreciated, normoactive bowel sounds. No guarding, no rebound. No rigidity noted . No masses appreciated. EXTREMITIES: Pedal pulses are 1-2+, no calf tenderness noted. No clubbing or cyanosis.trace to 1+ pedal edema noted NEUROLOGICAL: Focused neurological exam showed no significant neurologic deficit. Normal speech, no focal weakness appreciated. PSYCH: Normal mood, normal affect. Judgment and insight within normal limits. SKIN: No significant ecchymosis, rash, ulcerations or signs of pruritus noted. MUSCULOSKELETAL EXAM: No significant joint swelling noted. Results Laboratory Results: 09/24/16 04:23 09/24/16 04:23 09/24/16 09/24/16 04:23 04:23 WBC 8.2 RBC 3.77 L Hgb 11.7 L Hct 35.6 L MCV 95 MCH 30.9 MCHC 32.7 RDW 15.3 H Plt Count 242 Seg Neutrophils % 55.6 Lymphocytes % 27.0 Monocytes % 10.4 Eosinophils % 5.5 Basophils % 1.5 Absolute Neutrophils 4.6 Absolute Lymphocytes 2.2 Absolute Monocytes 0.9 Absolute Eosinophils 0.5 Absolute Basophils 0.1 Sodium 140.7 Potassium 4.5 Chloride 95 L Carbon Dioxide 39 H Anion Gap 7 BUN 28 H Creatinine 1.68 H Est GFR ( Amer) 49 L Est GFR (Non-Af Amer) 41 L Glucose 88 Calcium 8.3 L 09/22/16 09/22/16 09/22/16 14:29 14:29 20:10 Creatine Kinase 89 72 CK-MB (CK-2) 2.91 Troponin I 0.210 09/22/16 09/23/16 09/23/16 20:10 02:34 02:34 Creatine Kinase 69 CK-MB (CK-2) 2.22 1.96 Troponin I 0.214 0.207 EKG Comments: Sinus rhythm, no acute ST-T wave changes noted. Impressions: Chest X-Ray 09/22/16 10:21 IMPRESSION: Suspect mild CHF. Similar appearance compared to prior. Assessment & Plan - Diagnosis (1) CHF (congestive heart failure) Qualifiers: Congestive heart failure type: diastolic Congestive heart failure chronicity: acute on chronic Qualified Code(s): I50.33 - Acute on chronic diastolic (congestive) heart failure Is this a current diagnosis for this admission?: YesPlan: This seems decompensated on clinical exam. Continue intravenous diuretic therapy. Patient should be educated in CHF pathway. This should include salt and fluid restriction, daily weighing, adjustment of diuretic therapy based on weight gain et cetera. Patient to be educated that if there is gain of more than 2 pounds in a day or more than 5 pounds in a week, this indicates fluid retention and patient may need to adjust the diuretic therapy. Symptoms associated with CHF exacerbation to be discussed with the patient. This could include rapid weight gain, abdominal bloating, increased shortness of breath, fatigue, tiredness, cardiac arrhythmias et cetera. (2) Chronic renal failure Qualifiers: Chronic kidney disease stage: stage 3 (moderate) Qualified Code(s): N18.3 - Chronic kidney disease, stage 3 (moderate) Is this a current diagnosis for this admission?: YesPlan: Patient seems to have chronic kidney disease stage 3-4. Creatinine been stable. Avoid any nephrotoxic agents, IV contrast agent dye etc. consider nephrology evaluation. Presence of chronic kidney disease is a prognostic factor. (3) Coronary artery disease Qualifiers: Coronary Disease-Associated Artery/Lesion type: [place] artery [place] vs. transplanted heart: [place] heart Associated angina: without angina Qualified Code(s): I25.10 - Atherosclerotic heart disease of [place] coronary artery without angina pectoris Is this a current diagnosis for this admission?: YesPlan: CAD: Patient has CAD. Currently stable without any angina or angina equivalent symptoms. Discussed symptoms associated with unstable angina, acute coronary syndrome, myocardial infarction etc. patient to be educated in proper instruction for nitroglycerin use and proper use of emergency services. Aggressive risk factor modification advised. (4) Gastroesophageal reflux disease Qualifiers: Esophagitis presence: without esophagitis Qualified Code(s): K21.9 - Gastro-esophageal reflux disease without esophagitis Is this a current diagnosis for this admission?: YesPlan: Patient seems to have this condition. Weigh loss and treatment of sleep apnea if present and when treated tends to help this condition. Recommend small meals , avoid eating within 3 hours of bedtime, avoid other food substances which had led to reflux in the past. Proton pump inhibitors and other antacids are recommended. (5) Hypertension Qualifiers: Hypertension type: essential hypertension Qualified Code(s): I10 - Essential (primary) hypertension Is this a current diagnosis for this admission?: YesPlan: Blood pressure goal in this patient is 135/85 or less. This was discussed with the patient. Currently blood pressure under reasonable control. Better medication for this patient are MARGARITA inhibitor/ARB/beta debbie etc. discussed side effects of uncontrolled hypertension and also severe hypotension. (6) Peripheral edema Is this a current diagnosis for this admission?: YesPlan: This is most likely related to CHF. However patient may also have element of venous insufficiency. May consider a venous duplex ultrasound study. (7) Troponin level elevated Is this a current diagnosis for this admission?: YesPlan: Patient has elevated troponin I. Patient had no chest pain and no significant ischemic changes on EKG. This amount of troponin I elevation could be related to CHF. Since patient has significant pedal edema and chronic CHF, would like to rule out pulmonary embolism. Have therefore ordered a VQ scan. Will try to obtain results of previous stress test. Patient has normal LVEF, no ongoing chest pain, any further evaluation such as ischemia workup can be performed later on as an outpatient or prior to discharge. - Notes Notes: CODE STATUS was discussed, patient remains full code. Surrogate decision-maker not identified. Multiple medical problems were addressed. - Time Time Spent: 30 to 50 Minutes - More than 50% of the time spent coordinating care , discussing management plans with involved caregivers. Management plans discussed with involved personnels. Medical decision making was of moderate complexity.
[2016-09-24] MEDS: MAGNESIUM SULFATE/D5W 100 ML IV SCH ×2 (19:37→20:27)
[2016-09-25] MEDS: MORPHINE SULFATE 10 MG/ML INJ IV PRN ×3 (02:39→20:09)
[2016-09-25] MEDS: HYDROCODONE/ACETAMINOPHEN 10-325 MG TABLET PO SCH ×3 (06:27→21:41)
[2016-09-25 07:48] LABS: ANION GAP 11 (5-19); BLOOD UREA NITROGEN 26 mg/dL (7-20); CALCIUM 9.1 mg/dL (8.4-10.2); CARBON DIOXIDE 36 mmol/L (22-30); CHLORIDE 92 mmol/L (98-107); GLUCOSE 92 mg/dL (75-110); MAGNESIUM 1.8 mg/dL (1.6-2.3); POTASSIUM 4.6 mmol/L (3.6-5.0); SODIUM 139.1 mmol/L (137-145)
[2016-09-25] MEDS: ENOXAPARIN SODIUM INJ 40 MG/0.4 ML DISP.SYRIN SUBCUT SCH (08:29)
[2016-09-25] MEDS: FUROSEMIDE INJ/PF 40 MG/4 ML SDV IV SCH (11:36)
[2016-09-25] MEDS: FAMOTIDINE 20 MG TABLET PO SCH ×2 (11:38→21:42)
[2016-09-25] MEDS: METOPROLOL TARTRATE 25 MG TABLET PO SCH ×2 (11:38→21:42)
[2016-09-25] MEDS: ASPIRIN 81 MG TABLET, ENT COATED PO SCH (11:39)
[2016-09-25] MEDS: AMLODIPINE BESYLATE 5 MG TABLET PO SCH (11:39)
[2016-09-25] MEDS: LISINOPRIL 5 MG TABLET PO SCH (11:39)
--- NOTE | 2016-09-25 17:56 | PDOC PROGRESS REPORT ---
Subjective Progress Note for:: 09/25/16 Subjective:: Shortness of breath continues to be better. No chest pain. Lower extremity edema is less. No chills or fever. No nausea or vomiting. No diaphoresis. Patient evaluated by cardiology and acute coronary syndrome is unlikely. VQ scan was obtained and was low probability. Physical Exam Vital Signs: Temp Pulse Resp BP Pulse Ox 97.8 F 65 20 136/68 H 91 L 09/25/16 15:50 09/25/16 15:50 09/25/16 15:50 09/25/16 15:50 09/25/16 15:50 Intake & Output 09/24/16 09/25/16 09/26/16 06:59 06:59 06:59 Intake Total 2320 2510 Output Total 3500 2600 Balance -1180 -90 Weight 128 kg 128.6 kg General appearance: PRESENT: no acute distress, cooperative, obese Head exam: PRESENT: normocephalic Eye exam: PRESENT: EOMI Mouth exam: PRESENT: moist, neck supple Neck exam: PRESENT: JVD - Prominent neck vein Respiratory exam: PRESENT: rales - Dry bilateral, unlabored. ABSENT: wheezes Cardiovascular exam: PRESENT: RRR. ABSENT: gallop GI/Abdominal exam: PRESENT: normal bowel sounds, soft. ABSENT: tenderness Extremities exam: PRESENT: +2 edema Neurological exam: PRESENT: alert, awake, oriented to situation Skin exam: PRESENT: dry, warm. ABSENT: cyanosis Results Laboratory Results: 09/24/16 04:23 09/25/16 05:20 09/25/16 05:20 Sodium 139.1 Potassium 4.6 Chloride 92 L Carbon Dioxide 36 H Anion Gap 11 BUN 26 H Creatinine 1.50 H Est GFR ( Amer) 56 L Est GFR (Non-Af Amer) 47 L Glucose 92 Calcium 9.1 Magnesium 1.8 09/22/16 09/22/16 09/22/16 14:29 14:29 20:10 Creatine Kinase 89 72 CK-MB (CK-2) 2.91 Troponin I 0.210 09/22/16 09/23/16 09/23/16 20:10 02:34 02:34 Creatine Kinase 69 CK-MB (CK-2) 2.22 1.96 Troponin I 0.214 0.207 Impressions: Chest X-Ray 09/22/16 10:21 IMPRESSION: Suspect mild CHF. Similar appearance compared to prior. Lung Scan-VQ NM 09/24/16 00:00 IMPRESSION: NORMAL VENTILATION-PERFUSION LUNG SCAN. NEGATIVE FOR PULMONARY EMBOLI. Assessment & Plan - Diagnosis (1) CHF (congestive heart failure) Qualifiers: Congestive heart failure type: diastolic Congestive heart failure chronicity: acute on chronic Qualified Code(s): I50.33 - Acute on chronic diastolic (congestive) heart failure Is this a current diagnosis for this admission?: Yes (2) Chronic renal failure Qualifiers: Chronic kidney disease stage: stage 3 (moderate) Qualified Code(s): N18.3 - Chronic kidney disease, stage 3 (moderate) Is this a current diagnosis for this admission?: Yes (3) Coronary artery disease Qualifiers: Coronary Disease-Associated Artery/Lesion type: [place] artery [place] vs. transplanted heart: [place] heart Associated angina: without angina Qualified Code(s): I25.10 - Atherosclerotic heart disease of [place] coronary artery without angina pectoris Is this a current diagnosis for this admission?: Yes (4) Gastroesophageal reflux disease Qualifiers: Esophagitis presence: without esophagitis Qualified Code(s): K21.9 - Gastro-esophageal reflux disease without esophagitis Is this a current diagnosis for this admission?: Yes (5) Hypertension Qualifiers: Hypertension type: essential hypertension Qualified Code(s): I10 - Essential (primary) hypertension Is this a current diagnosis for this admission?: Yes (6) Pulmonary hypertension Is this a current diagnosis for this admission?: Yes (7) Osteoarthritis Qualifiers: Osteoarthritis location: unspecified site Osteoarthritis type: unspecified Qualified Code(s): M19.90 - Unspecified osteoarthritis, unspecified site Is this a current diagnosis for this admission?: Yes - Time Time Spent with patient: 15-24 minutes Anticipated discharge: Home with Homehealth Within: within 24 hours - Plan Summary Plan Summary: Continue current medication but switched to oral diuretic. Arrange for home oxygen. Awaiting equipment. Continue supportive care. When oxygen tank is available patient can be discharged home.
[2016-09-25] MEDS ORDERED: TORSEMIDE 20 MG TABLET PO ONE (20:00)
[2016-09-26] MEDS: MORPHINE SULFATE 10 MG/ML INJ IV PRN ×2 (04:21→09:30)
[2016-09-26] MEDS: HYDROCODONE/ACETAMINOPHEN 10-325 MG TABLET PO SCH ×2 (05:36→16:49)
[2016-09-26] MEDS: ENOXAPARIN SODIUM INJ 40 MG/0.4 ML DISP.SYRIN SUBCUT SCH (08:50)
[2016-09-26] MEDS: METOPROLOL TARTRATE 25 MG TABLET PO SCH (09:33)
[2016-09-26] MEDS: LISINOPRIL 5 MG TABLET PO SCH (09:34)
[2016-09-26] MEDS: FAMOTIDINE 20 MG TABLET PO SCH (09:35)
[2016-09-26] MEDS: ASPIRIN 81 MG TABLET, ENT COATED PO SCH (09:35)
[2016-09-26] MEDS ORDERED: TORSEMIDE 20 MG TABLET PO SCH (10:00)
[2016-09-26] MEDS: AMLODIPINE BESYLATE 5 MG TABLET PO SCH (12:21)
--- NOTE | 2016-09-26 15:30 | PDOC DISCHARGE SUMMARY ---
General - Admit/Disc Date/PCP Admission Date/Primary Care Provider: 09/22/16 13:10 Discharge Date: 09/26/16 - Discharge Diagnosis (1) CHF (congestive heart failure) Is this a current diagnosis for this admission?: Yes (2) Chronic renal failure Is this a current diagnosis for this admission?: Yes (3) Coronary artery disease Is this a current diagnosis for this admission?: Yes (4) Gastroesophageal reflux disease Is this a current diagnosis for this admission?: Yes (5) Hypertension Is this a current diagnosis for this admission?: Yes (6) Pulmonary hypertension Is this a current diagnosis for this admission?: Yes (7) Osteoarthritis Is this a current diagnosis for this admission?: Yes - Additional Information Resuscitation Status: Full Code Discharge Diet: Cardiac - low-fat low-salt Discharge Activity: Activity As Tolerated, Balance Activity w/Rest, Slowly Increase Activity Home Medications: Aspirin [Aspirin 81 mg Chewable Tablet] 81 mg PO QHS 09/25/16 Hydrocodone/Acetaminophen [Maribel 10-325 mg Tablet] 1 tab PO Q8HP PRN 09/25/16 Amlodipine Besylate [Norvasc 5 mg Tablet] 5 mg PO DAILY #30 tablet 09/26/16 Aspirin [Ecotrin 81 mg EC Tablet] 81 mg PO DAILY tabec 09/26/16 Lisinopril [Prinivil 5 mg Tablet] 5 mg PO DAILY #30 tablet 09/26/16 Metoprolol Tartrate [Lopressor 25 mg Tablet] 25 mg PO Q12 #60 tablet 09/26/16 Torsemide [Demadex 20 mg Tablet] 20 mg PO BID #60 tablet 09/26/16 Additional Information: Home health for physical therapy. Home oxygen at 2 L nasal cannula. Measure weight daily and record. History of Present Illness Patient complains of: Shortness of breath and lower extremity edema History of Present Illness: JULIETH BRYAN is a 66 year old male, with no prior history of heart failure with coronary artery disease presents to the hospital because of increasing edema as well as shortness of breath for the past 3 weeks with associated paroxysmal nocturnal dyspnea and orthopnea. Reportedly the patient was treated for gout and lower extremity cellulitis outpatient affording no relief of symptoms. Patient was referred for admission. Please refer to history and physical examination performed by the admitting physician. Hospital Course Hospital Course: The patient was admitted to [facility]. The patient was started on diuretic for heart failure. Chest x-ray did reveal mild congestive heart failure changes. The patient however reportedly he has chronic hypoxia at home. He has an oximeter and reports that O2 saturation goes down in the 70s. He is not on home oxygen nor he has sought or seek any advise her medication for it. Cardiac enzymes were obtained and they were abnormal. Cardiology was consulted. Patient denies any chest pain at all. EKG shows no acute changes. Echocardiogram was performed showing a normal left ventricular ejection fraction but with no ejection fraction in the right side. There is noted severe pulmonary hypertension. Acute coronary syndrome is unlikely as per cardiology. Patient's symptomatology likely secondary to his pulmonary hypertension and right-sided heart failure. Patient was started on Norvasc. Clonidine was discontinued. Blood pressure was controlled with MARGARITA inhibitor as well as beta young. The patient's edema has significantly improved and the breathing significantly improved. However with exertion the patient will remain hypoxic and therefore home oxygen was ordered with kit planner. Patient was shifted to oral diuretics. She was cleared by cardiology to be discharged. It was advised to follow-up with his supervisor payroll in [place]. The rest of the hospital stay was essentially unremarkable. Physical Exam Vital Signs: Temp Pulse Resp BP Pulse Ox 98.2 F 62 24 H 140/83 H 93 09/26/16 11:24 09/26/16 11:24 09/26/16 11:24 09/26/16 11:24 09/26/16 11:24 Intake & Output 09/25/16 09/26/16 09/27/16 06:59 06:59 06:59 Intake Total 2510 1701 Output Total 2600 2100 Balance -90 -399 Weight 128.6 kg 129 kg General appearance: PRESENT: no acute distress, cooperative Head exam: PRESENT: normocephalic Eye exam: PRESENT: EOMI, PERRLA Mouth exam: PRESENT: moist, neck supple Respiratory exam: PRESENT: clear to auscultation sumeet. ABSENT: rhonchi, wheezes Cardiovascular exam: PRESENT: RRR. ABSENT: gallop GI/Abdominal exam: PRESENT: normal bowel sounds, soft. ABSENT: tenderness Extremities exam: PRESENT: +2 edema Neurological exam: PRESENT: alert, awake, oriented to person, oriented to place , oriented to time, oriented to situation Skin exam: PRESENT: dry, warm. ABSENT: cyanosis Results Laboratory Results: 09/24/16 04:23 09/25/16 05:20 09/22/16 09/22/16 09/22/16 14:29 14:29 20:10 Creatine Kinase 89 72 CK-MB (CK-2) 2.91 Troponin I 0.210 09/22/16 09/23/16 09/23/16 20:10 02:34 02:34 Creatine Kinase 69 CK-MB (CK-2) 2.22 1.96 Troponin I 0.214 0.207 Impressions: Chest X-Ray 09/22/16 10:21 IMPRESSION: Suspect mild CHF. Similar appearance compared to prior. Lung Scan-VQ NM 09/24/16 00:00 IMPRESSION: NORMAL VENTILATION-PERFUSION LUNG SCAN. NEGATIVE FOR PULMONARY EMBOLI. Qualifiers PATEINT BEING DISCHARGED WITH ANY OF THE FOLLOWING DIAGNOSIS?: Heart Failure HF Pt being discharged on ACEI for LVEF less than 40%?: Yes HF Pt being discharged on ARBS for LVEF less than 40%?: No Reason(s) for not prescribing ARBS:: Not indicated HF Pt with Afib discharged with Warfarin?: No Reason(s) for not prescribing Warfarin:: Not indicated - No A. fib HF Pt discharged on evidence-based Beta Young?: Yes Plan Discharge Plan: Follow-up with primary care physician in one week. Follow-up with supervisor payroll in [place] in one week. Time Spent: Less than 30 Minutes
[2016-09-26 16:34] VITALS: BP 153/76
--- NOTE | 2016-09-27 15:34 | PDOC PROGRESS REPORT ---
Subjective Progress Note for:: 09/26/16 Subjective:: Patient seems to be doing better with gradual improvement. Pt is denying any chest arm or neck discomfort. Patient denying any PND, orthopnea. Patient denied any sustained palpitations, dizziness, syncope, near syncope. Patient denying any fever chills. Patient denying any other significant discomfort. Patient is maintaining sinus rhythm. Patient still has significant pedal edema. However this has improved. Review of systems: Rest review of systems negative. Medications: Medications have been reviewed. Physical Exam Vital Signs: Temp Pulse Resp BP Pulse Ox 98.0 F 78 18 153/76 H 100 09/26/16 16:07 09/26/16 16:07 09/26/16 16:07 09/26/16 16:07 09/26/16 16:07 Intake & Output 09/25/16 09/26/16 09/27/16 06:59 06:59 06:59 Intake Total 2510 1701 Output Total 2600 2100 Balance -90 -399 Weight 128.6 kg 129 kg Exam: GENERAL: well-nourished and in no acute distress. Alert and oriented x3 HEAD: Atraumatic, normocephalic. EYES: Pupils equal round and reactive to light, extraocular movements intact, sclera anicteric, conjunctiva are normal. ENT: TMs normal, nares patent, oropharynx clear without exudates. Moist mucous membranes. No oral ulcerations or bleeding gums noted NECK: supple without lymphadenopathy. Trachea is central. No cervical or axillary lymphadenopathy noted. Carotids are 2+, JVD WNL LUNGS: Respiration seems nonlabored, no significant accessory muscle action noted. Breath sounds clear to auscultation bilaterally and equal. No wheezes rales or rhonchi. No significant dullness noted on percussion. CHEST: Palpation of the chest wall shows no significant chest wall tenderness or abnormalities. 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 ABDOMEN: Soft, no significant tenderness appreciated, normoactive bowel sounds. No guarding, no rebound. No rigidity noted . No masses appreciated. EXTREMITIES: Pedal pulses are 1-2+, no calf tenderness noted. No clubbing or cyanosis.2-3+ + pedal edema noted NEUROLOGICAL: Focused neurological exam showed no significant neurologic deficit. Normal speech, no focal weakness appreciated. PSYCH: Normal mood, normal affect. Judgment and insight within normal limits. SKIN: No significant ecchymosis, rash, ulcerations or signs of pruritus noted. MUSCULOSKELETAL EXAM: No significant joint swelling noted. Results Laboratory Results: 09/24/16 04:23 09/25/16 05:20 09/22/16 09/22/16 09/22/16 14:29 14:29 20:10 Creatine Kinase 89 72 CK-MB (CK-2) 2.91 Troponin I 0.210 09/22/16 09/23/16 09/23/16 20:10 02:34 02:34 Creatine Kinase 69 CK-MB (CK-2) 2.22 1.96 Troponin I 0.214 0.207 Impressions: Chest X-Ray 09/22/16 10:21 IMPRESSION: Suspect mild CHF. Similar appearance compared to prior. Lung Scan-VQ NM 09/24/16 00:00 IMPRESSION: NORMAL VENTILATION-PERFUSION LUNG SCAN. NEGATIVE FOR PULMONARY EMBOLI. Assessment & Plan - Diagnosis (1) CHF (congestive heart failure) Qualifiers: Congestive heart failure type: diastolic Congestive heart failure chronicity: acute on chronic Qualified Code(s): I50.33 - Acute on chronic diastolic (congestive) heart failure Is this a current diagnosis for this admission?: Yes (2) Chronic renal failure Qualifiers: Chronic kidney disease stage: stage 3 (moderate) Qualified Code(s): N18.3 - Chronic kidney disease, stage 3 (moderate) Is this a current diagnosis for this admission?: Yes (3) Coronary artery disease Qualifiers: Coronary Disease-Associated Artery/Lesion type: [place] artery [place] vs. transplanted heart: [place] heart Associated angina: without angina Qualified Code(s): I25.10 - Atherosclerotic heart disease of [place] coronary artery without angina pectoris Is this a current diagnosis for this admission?: Yes (4) Gastroesophageal reflux disease Qualifiers: Esophagitis presence: without esophagitis Qualified Code(s): K21.9 - Gastro-esophageal reflux disease without esophagitis Is this a current diagnosis for this admission?: Yes (5) Hypertension Qualifiers: Hypertension type: essential hypertension Qualified Code(s): I10 - Essential (primary) hypertension Is this a current diagnosis for this admission?: Yes (6) Peripheral edema Is this a current diagnosis for this admission?: Yes (7) Troponin level elevated Is this a current diagnosis for this admission?: Yes - Notes Notes: Congestive heart failure seems predominantly right-sided. A VQ scan was therefore ordered. These subsequently was reviewed and was noted to be negative. Chronic renal failure currently stable. Patient would benefit from nephrology evaluation and follow-up. Coronary artery disease: Patient is status post stent placement. Currently stable without any angina or angina equivalent symptom. Troponin I elevation is secondary to CHF. Gastroesophageal reflux: Currently stable. Peripheral edema: This is multifactorial. Predominantly right-sided CHF but could well be also from venous insufficiency contributing. Troponin I elevated : Currently stable without any angina or angina equivalent symptoms. - Time Time with patient: 15-25 minutes - More than 50% of the time spent coordinating care, discussing management plans with involved caregivers. Management plans discussed with involved personnels. Medical decision making was of moderate complexity.
--- NOTE | 2016-09-27 15:38 | PDOC PROGRESS REPORT ---
Subjective Progress Note for:: 09/25/16 Subjective:: Patient was seen on 09/25/2016 but for some reason I could not find my note. Therefore this is being redictated. Patient seems to be doing better with gradual improvement. Pt is denying any chest arm or neck discomfort. Patient denying any PND, orthopnea. Patient denied any sustained palpitations, dizziness, syncope, near syncope. Patient denying any fever chills. Patient denying any other significant discomfort. Patient is maintaining sinus rhythm. Patient still has significant pedal edema. However this has improved. Review of systems: Rest review of systems negative. Medications: Medications have been reviewed. Physical Exam Vital Signs: Temp Pulse Resp BP Pulse Ox 98.0 F 78 18 153/76 H 100 09/26/16 16:07 09/26/16 16:07 09/26/16 16:07 09/26/16 16:07 09/26/16 16:07 Intake & Output 09/26/16 09/27/16 09/28/16 06:59 06:59 06:59 Intake Total 1701 Output Total 2100 Balance -399 Weight 129 kg Exam: GENERAL: well-nourished and in no acute distress. Alert and oriented x3 HEAD: Atraumatic, normocephalic. EYES: Pupils equal round and reactive to light, extraocular movements intact, sclera anicteric, conjunctiva are normal. ENT: TMs normal, nares patent, oropharynx clear without exudates. Moist mucous membranes. No oral ulcerations or bleeding gums noted NECK: supple without lymphadenopathy. Trachea is central. No cervical or axillary lymphadenopathy noted. Carotids are 2+, JVD 10 CM LUNGS: Respiration seems nonlabored, no significant accessory muscle action noted. Breath sounds clear to auscultation bilaterally and equal. No wheezes rales or rhonchi. No significant dullness noted on percussion. CHEST: Palpation of the chest wall shows no significant chest wall tenderness or abnormalities. 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 ABDOMEN: Soft, no significant tenderness appreciated, normoactive bowel sounds. No guarding, no rebound. No rigidity noted . No masses appreciated. EXTREMITIES: Pedal pulses are 1-2+, no calf tenderness noted. No clubbing or cyanosis.2-3+ pedal edema noted NEUROLOGICAL: Focused neurological exam showed no significant neurologic deficit. Normal speech, no focal weakness appreciated. PSYCH: Normal mood, normal affect. Judgment and insight within normal limits. SKIN: No significant ecchymosis, rash, ulcerations or signs of pruritus noted. MUSCULOSKELETAL EXAM: No significant joint swelling noted. Results Laboratory Results: 09/24/16 04:23 09/25/16 05:20 09/22/16 09/22/16 09/22/16 14:29 14:29 20:10 Creatine Kinase 89 72 CK-MB (CK-2) 2.91 Troponin I 0.210 09/22/16 09/23/16 09/23/16 20:10 02:34 02:34 Creatine Kinase 69 CK-MB (CK-2) 2.22 1.96 Troponin I 0.214 0.207 Impressions: Chest X-Ray 09/22/16 10:21 IMPRESSION: Suspect mild CHF. Similar appearance compared to prior. Lung Scan-VQ NM 09/24/16 00:00 IMPRESSION: NORMAL VENTILATION-PERFUSION LUNG SCAN. NEGATIVE FOR PULMONARY EMBOLI. Assessment & Plan - Diagnosis (1) CHF (congestive heart failure) Qualifiers: Congestive heart failure type: diastolic Congestive heart failure chronicity: acute on chronic Qualified Code(s): I50.33 - Acute on chronic diastolic (congestive) heart failure Is this a current diagnosis for this admission?: Yes (2) Chronic renal failure Qualifiers: Chronic kidney disease stage: stage 3 (moderate) Qualified Code(s): N18.3 - Chronic kidney disease, stage 3 (moderate) Is this a current diagnosis for this admission?: Yes (3) Coronary artery disease Qualifiers: Coronary Disease-Associated Artery/Lesion type: [place] artery [place] vs. transplanted heart: [place] heart Associated angina: without angina Qualified Code(s): I25.10 - Atherosclerotic heart disease of [place] coronary artery without angina pectoris Is this a current diagnosis for this admission?: Yes (4) Gastroesophageal reflux disease Qualifiers: Esophagitis presence: without esophagitis Qualified Code(s): K21.9 - Gastro-esophageal reflux disease without esophagitis Is this a current diagnosis for this admission?: Yes (5) Hypertension Qualifiers: Hypertension type: essential hypertension Qualified Code(s): I10 - Essential (primary) hypertension Is this a current diagnosis for this admission?: Yes (6) Peripheral edema Is this a current diagnosis for this admission?: Yes (7) Troponin level elevated Is this a current diagnosis for this admission?: Yes - Notes Notes: Congestive heart failure seems predominantly diastolic dysfunction with significant right-sided complement. A VQ scan was therefore ordered, after discussion with Dr. Dr. Wilkins and since patient at high risk for pulmonary embolism. These subsequently was reviewed and was noted to be negative. Chronic renal failure currently stable. Patient would benefit from nephrology evaluation and follow-up. Coronary artery disease: Patient is status post stent placement. Currently stable without any angina or angina equivalent symptom. Troponin I elevation is secondary to CHF, possibly hypoxemia. Gastroesophageal reflux: Currently stable. Peripheral edema: This is multifactorial. Predominantly right-sided CHF but could well be also from venous insufficiency contributing. Troponin I elevated : Currently stable without any angina or angina equivalent symptoms. COPD: This seems to be a significant problem. Patient to be evaluated for oxygen need. This will be important in view of right-sided heart failure being also present. - Time Time with patient: 15-25 minutes - More than 50% of the time spent coordinating care, discussing management plans with involved caregivers. Management plans discussed with involved personnels. Medical decision making was of moderate complexity.
== END 2016-09-26 17:15 | disposition home health service (06) | DRG 291 ==
LOC: ER 10:08 → EH 12:58 → UNDOADMIN 12:58 → EH 13:10 → 3W 14:45 → 4N 09-25 01:02
PROVIDERS: ADMIT Internal Medicine; ATTEND Internal Medicine
DX: I13.0 Hypertensive heart and chronic kidney disease with heart failure and stage 1 through stage 4 chronic kidney disease, or unspecified chronic kidney disease (principal); I50.33 Acute on chronic diastolic (congestive) heart failure; I25.10 Atherosclerotic heart disease of native coronary artery without angina pectoris; K21.9 Gastro-esophageal reflux disease without esophagitis; N18.3 Chronic kidney disease, stage 3 (moderate); I27.2 Other secondary pulmonary hypertension; M19.90 Unspecified osteoarthritis, unspecified site; R09.02 Hypoxemia; Z79.899 Other long term (current) drug therapy; Z99.81 Dependence on supplemental oxygen; Z95.5 Presence of coronary angioplasty implant and graft; Z96.612 Presence of left artificial shoulder joint; Z96.611 Presence of right artificial shoulder joint; Z87.891 Personal history of nicotine dependence; Z88.2 Allergy status to sulfonamides; Z88.6 Allergy status to analgesic agent; Z82.49 Family history of ischemic heart disease and other diseases of the circulatory system
CPT/HCPCS: 36415; 71020; 78582; 80048; 80053; 81001; 82550; 82553; 83735; 83880; 84484; 85025; 85610; 85730; 93005; 93010; 93306; 96374; 99291; A9540; A9567; J1650; J1940; J2270; J3475; J3490; Q9969

== ENCOUNTER 2016-11-16 06:55 | Emergency (ER) | payer OTHER, MEDICARE ==
[2016-11-16] MEDS ORDERED: ASPIRIN 81 MG TABLET, CHEWABLE PO ONE (07:04)
--- NOTE | 2016-11-16 07:19 | ER Document Report ---
ED General - General Chief Complaint: Chest Pain Stated Complaint: CHEST PAIN Mode of Arrival: Ambulatory Information source: Patient Notes: 58-year-old male history of [place] and stents congestive heart failure COPD presents with complaints of chest pain that started last night across his chest. Chest pain was associated with shortness of breath. Patient woke this morning saying that he could not breathe and that he was having issues with his esophagus as well. Patient denies any fevers or chills nausea vomiting or diarrhea TRAVEL OUTSIDE OF THE [place] IN LAST 30 DAYS: No - HPI Onset: Yesterday Onset/Duration: Sudden Quality of pain: Pressure Severity: Mild Pain Level: 1 Associated symptoms: Chest pain, Shortness of breath Exacerbated by: Denies Relieved by: Denies Similar symptoms previously: Yes Recently seen / treated by doctor: Yes - Related Data Allergies/Adverse Reactions: Sulfa (Sulfonamide Antibiotics) Allergy (Verified 11/16/16 07:06) aspirin Adverse Reaction (Mild, Verified 11/16/16 07:06) Past Medical History - Social History Smoking Status: Former Smoker Cigarette use (# per day): No Chew tobacco use (# tins/day): No Smoking Education Provided: No Frequency of alcohol use: None Drug Abuse: None Family History: Reviewed & Not Pertinent Patient has suicidal ideation: No Patient has homicidal ideation: No - Past Medical History Cardiac Medical History: Reports: Hx Coronary Artery Disease, Hx Hypertension Renal/ Medical History: Denies: Hx Peritoneal Dialysis GI Medical History: Reports: Hx Gastroesophageal Reflux Disease Musculoskeltal Medical History: Reports Hx Arthritis Past Surgical History: Reports: Hx Orthopedic Surgery - Patient has had bilateral shoulder joint replacements. Review of Systems - Review of Systems Notes: REVIEW OF SYSTEMS: CONSTITUTIONAL : Denies fever, chills, or sweats. Denies recent illness. EENT: Admits to difficulty swallowing CARDIOVASCULAR: Admits to chest pain RESPIRATORY: Admits shortness of breath GASTROINTESTINAL: Denies abdominal pain or distention. Denies nausea, vomiting , or diarrhea. Denies blood in vomitus, stools, or per rectum. Denies black, tarry stools. Denies constipation. GENITOURINARY: Denies difficulty urinating, painful urination, burning, frequency, blood in urine, or discharge. MUSCULOSKELETAL: Denies back or neck pain or stiffness. Denies joint pain or swelling. SKIN: Denies rash, lesions or sores. HEMATOLOGIC : Denies easy bruising or bleeding. LYMPHATIC: Denies swollen, enlarged glands. NEUROLOGICAL: Denies confusion or altered mental status. Denies passing out or loss of consciousness. Denies dizziness or lightheadedness. Denies headache. Denies weakness or paralysis or loss of use of either side. Denies problems with gait or speech. Denies sensory loss, numbness, or tingling. Denies seizures. PSYCHIATRIC: Denies anxiety or stress. Denies depression, suicidal ideation, or homicidal ideation. ALL OTHER SYSTEMS REVIEWED AND NEGATIVE. Dictation was performed using [employer] voice recognition software PHYSICAL EXAMINATION: GENERAL: Age-appropriate male in mild respiratory distress HEAD: Atraumatic, normocephalic. EYES: Pupils equal round and reactive to light, extraocular movements intact, sclera anicteric, conjunctiva are normal. ENT: Nares patent, oropharynx clear without exudates. Moist mucous membranes. NECK: Normal range of motion, supple without lymphadenopathy LUNGS: Patient currently on 2 L nasal cannula satting 89% mild respiratory distress HEART: Intermittently tachycardic ABDOMEN: Soft, nontender, nondistended abdomen. No guarding, no rebound. No masses appreciated. Musculoskeletal: Normal range of motion, no pitting or edema. No cyanosis. NEUROLOGICAL: Cranial nerves grossly intact. Normal speech, normal gait. Normal sensory, motor exams PSYCH: Normal mood, normal affect. SKIN: Abdominal incision noted Physical Exam - Vital signs Vitals: Pulse Ox 89 L 11/16/16 07:16 Course - Re-evaluation Re-evalutation: 11/16/16 07:19 Patient admits to esophageal difficulties however given difficulty breathing hypoxemia chest pain I believe an ACS rule out vs pneumonia is appropriate 11/16/16 07:52 Chest x-ray elevated white count consistent with pneumonia, patient notes large amount of sputum that he just coughed up. Given this presentation I believe the patient has pneumonia. Patient was offered admission, he refuses to be admitted again. Family member wishes for him to be admitted to he convinced her that he will go home. I explained risks and benefits, explained risks and benefits as well. Patient states he will go home and will try to relax. I believe this is a terrible idea and the patient will leave AGAINST MEDICAL ADVICE After performing a Medical Screening Examination, I spoke with the patient at length in regards to leaving the hospital against medical advice. I do not believe the patient should leave but the patient is alert oriented x4, understands the risks and benefits of staying and leaving including disability and . Pt understands that he can return at any time for further care and is more than welcome to do so. Pt verbalizes this understanding. - Vital Signs Vital signs: Temp Pulse Resp BP Pulse Ox 89 L 11/16/16 07:16 - Laboratory Result Diagrams: 11/16/16 07:15 11/16/16 07:15 Laboratory results interpreted by me: 11/16/16 07:15 WBC 18.4 H RDW 15.5 H Absolute Neutrophils 13.4 H - Diagnostic Test Radiology reviewed: Image reviewed, Reports reviewed - EKG Interpretation by Me EKG shows normal: Sinus rhythm, [place], Intervals, QRS Complexes Discharge - Discharge Clinical Impression: CHF (congestive heart failure) Qualifiers: Congestive heart failure type: diastolic Congestive heart failure chronicity: acute on chronic Qualified Code(s): I50.33 - Acute on chronic diastolic ( congestive) heart failure Pneumonia Qualifiers: Pneumonia type: due to unspecified organism Laterality: bilateral Lung location : lower lobe of lung Qualified Code(s): J18.9 - Pneumonia, unspecified organism Coronary artery disease Qualifiers: Coronary Disease-Associated Artery/Lesion type: [place] artery [place] vs. transplanted heart: [place] heart Associated angina: without angina Qualified Code(s): I25.10 - Atherosclerotic heart disease of [place] coronary artery without angina pectoris Condition: Fair Disposition: AGAINST MEDICAL ADVICE Instructions: Chest Pain of Unclear Cause ([facility]) Additional Instructions: Return at any time for further care Prescriptions: Levofloxacin [Levaquin 750 mg Tablet] 750 mg PO DAILY #5 tablet Prednisone [Deltasone 20 mg Tablet] 3 tab PO DAILY 5 Days Referrals: JULIETTE LOWERY MD [Primary Care Provider] - Follow up tomorrow
[2016-11-16] MEDS ORDERED: IPRATROPIUM/ALBUTEROL 0.5-2.5 MG/3 ML AMPUL NEB ONE ×2 (07:31→07:55)
[2016-11-16 07:34] LABS: ABSOLUTE BASOPHILS # (AUTO) 0.2 10^3/uL (0.0-0.2); ABSOLUTE EOSINOPHILS # (AUTO) 0.2 10^3/uL (0.0-0.6); ABSOLUTE LYMPHOCYTES (AUTO) 3.2 10^3/uL (0.5-4.7); ABSOLUTE MONOCYTES (AUTO) 1.4 10^3/uL (0.1-1.4); ABSOLUTE NEUT (AUTO) 13.4 10^3/uL (1.7-8.2); BASOPHILS % (AUTO) 0.8 % (0-2); EOSINOPHILS % (AUTO) 0.9 % (0-6); HEMATOCRIT 42.4 % (37.9-51.0); HEMOGLOBIN 13.7 g/dL (13.5-17.0); HGB HCT DIFFERENCE -1.3; LYMPHOCYTES % (AUTO) 17.6 % (13-45); MEAN CORPUSCULAR HEMOGLOBIN 30.3 pg (27.0-33.4); MEAN CORPUSCULAR HGB CONC 32.2 g/dL (32.0-36.0); MEAN CORPUSCULAR VOLUME 94 fl (80-97); MONOCYTES % (AUTO) 7.8 % (3-13); RED BLOOD COUNT 4.51 10^6/uL (4.35-5.55); RED CELL DISTRIBUTION WIDTH 15.5 % (11.5-14.0); SEGMENTED NEUTROPHILS % (AUTO) 72.9 % (42-78); WHITE BLOOD COUNT 18.4 10^3/uL (4.0-10.5)
[2016-11-16] MEDS ORDERED: LEVOFLOXACIN 500 MG/D5W RTU 100 ML IV ONE (07:49)
[2016-11-16 07:54] LABS: ALANINE AMINOTRANSFERASE 28 U/L (21-72); ALBUMIN 4.1 g/dL (3.5-5.0); ALKALINE PHOSPHATASE 100 U/L (38-126); ANION GAP 15 (5-19); ASPARTATE AMINO TRANSFERASE 25 U/L (17-59); BILIRUBIN,TOTAL 1.3 mg/dL (0.2-1.3); BLOOD UREA NITROGEN 23 mg/dL (7-20); CALCIUM 8.9 mg/dL (8.4-10.2); CARBON DIOXIDE 31 mmol/L (22-30); CHLORIDE 97 mmol/L (98-107); CREATINE KINASE 64 U/L (55-170); CREATININE RESULT 1.41 mg/dL (0.52-1.25); GLUCOSE 119 mg/dL (75-110); POTASSIUM 4.4 mmol/L (3.6-5.0); SODIUM 142.6 mmol/L (137-145); TOTAL PROTEIN 7.7 g/dL (6.3-8.2)
[2016-11-16 08:06] LABS: CREATINE KINASE MB 1.38 ng/mL (<4.55); TROPONIN I 0.03 ng/mL
--- NOTE | 2016-11-16 08:23 | EKG REPORT ---
SEVERITY:- ABNORMAL ECG - SINUS TACHYCARDIA NONSPECIFIC REPOL ABNORMALITY, DIFFUSE LEADS BORDERLINE PROLONGED QT INTERVAL : Confirmed by: Gómez Rodriguez MD 16-Nov-2016 08:22:02
[2016-11-16 09:08] VITALS: BP 155/105
== END 2016-11-16 09:05 | disposition left against medical advice (07) ==
LOC: ER 06:55
DX: I50.33 Acute on chronic diastolic (congestive) heart failure (principal); J18.9 Pneumonia, unspecified organism; I25.10 Atherosclerotic heart disease of native coronary artery without angina pectoris; I11.0 Hypertensive heart disease with heart failure; R07.9 Chest pain, unspecified; J44.9 Chronic obstructive pulmonary disease, unspecified; K21.9 Gastro-esophageal reflux disease without esophagitis; Z88.2 Allergy status to sulfonamides; Z88.6 Allergy status to analgesic agent; I25.2 Old myocardial infarction
CPT/HCPCS: 93005; 94640 ×2; 99285; 96365; 36415; 87040; 82553; 82550; 85025; 80053; 84484; 83880; 71010; 93010; J1956; J7620

== ENCOUNTER 2017-06-12 11:06 | Inpatient (IN) | payer OTHER, MEDICARE ==
--- NOTE | 2017-06-12 12:01 | ER Document Report ---
ED General - General Chief Complaint: Shortness Of Breath Stated Complaint: SWELLING ISSUE Time Seen by Provider: 06/12/17 11:32 Mode of Arrival: Ambulatory Information source: Patient Notes: 67-year-old male presents with complaints of shortness of breath. Patient has a history of COPD CHF stents in the past. Patient denies any fevers or chills admits to cough productive worsened when lying flat. Patient notes bilateral lower extremity edema Patient had recent travel from [place] Notes satting 64% at home, 2 L nc prn at home TRAVEL OUTSIDE OF THE [place] IN LAST 30 DAYS: No - HPI Onset: Last week Onset/Duration: Persistent Quality of pain: No pain Severity: Moderate Pain Level: Denies Associated symptoms: Productive cough, Hurts to breath, Leg swelling, Shortness of breath Exacerbated by: Supine Relieved by: Denies Similar symptoms previously: Yes Recently seen / treated by doctor: Yes - Related Data Allergies/Adverse Reactions: Sulfa (Sulfonamide Antibiotics) Allergy (Verified 06/12/17 11:13) aspirin Adverse Reaction (Mild, Verified 06/12/17 13:46) Home Medications: Current Home Medications Allopurinol [Zyloprim 100 mg Tablet] 100 mg PO DAILY 06/12/17 [History] Docusate Calcium 240 mg PO DAILY 06/12/17 [History] Omeprazole 20 mg PO BID 06/12/17 [History] Past Medical History - Social History Smoking Status: Former Smoker Cigarette use (# per day): No Chew tobacco use (# tins/day): No Smoking Education Provided: No Frequency of alcohol use: None Drug Abuse: None Family History: Reviewed & Not Pertinent - Past Medical History Cardiac Medical History: Reports: Hx Congestive Heart Failure, Hx Coronary Artery Disease, Hx Hypertension Pulmonary Medical History: Reports: Hx COPD Renal/ Medical History: Denies: Hx Peritoneal Dialysis GI Medical History: Reports: Hx Gastroesophageal Reflux Disease Musculoskeltal Medical History: Reports Hx Arthritis Past Surgical History: Reports: Hx Abdominal Surgery, Hx Orthopedic Surgery - Patient has had bilateral shoulder joint replacements. - Immunizations Hx Diphtheria, Pertussis, Tetanus Vaccination: No Review of Systems - Review of Systems Notes: REVIEW OF SYSTEMS: CONSTITUTIONAL : Denies fever, chills, or sweats. Denies recent illness. EENT: Denies eye, ear, throat, or mouth pain or symptoms. Denies nasal or sinus congestion or discharge. Denies throat, tongue, or mouth swelling or difficulty swallowing. CARDIOVASCULAR: Denies chest pain. Denies palpitations or racing or irregular heart beat. Admits lower extremity edema RESPIRATORY: Admits shortness of breath difficulty breathing GASTROINTESTINAL: Denies abdominal pain or distention. Denies nausea, vomiting , or diarrhea. Denies blood in vomitus, stools, or per rectum. Denies black, tarry stools. Denies constipation. GENITOURINARY: Denies difficulty urinating, painful urination, burning, frequency, blood in urine, or discharge. MUSCULOSKELETAL: Denies back or neck pain or stiffness. Denies joint pain or swelling. SKIN: Denies rash, lesions or sores. HEMATOLOGIC : Denies easy bruising or bleeding. LYMPHATIC: Denies swollen, enlarged glands. NEUROLOGICAL: Denies confusion or altered mental status. Denies passing out or loss of consciousness. Denies dizziness or lightheadedness. Denies headache. Denies weakness or paralysis or loss of use of either side. Denies problems with gait or speech. Denies sensory loss, numbness, or tingling. Denies seizures. PSYCHIATRIC: Denies anxiety or stress. Denies depression, suicidal ideation, or homicidal ideation. ALL OTHER SYSTEMS REVIEWED AND NEGATIVE. Dictation was performed using [employer] voice recognition software PHYSICAL EXAMINATION: GENERAL: Well-appearing, well-nourished and in moderate respiratory distress HEAD: Atraumatic, normocephalic. EYES: Pupils equal round and reactive to light, extraocular movements intact, sclera anicteric, conjunctiva are normal. ENT: Nares patent, oropharynx clear without exudates. Moist mucous membranes. NECK: Normal range of motion, supple without lymphadenopathy LUNGS: Coarse breath sounds bilateral HEART: Regular rate and rhythm without murmurs ABDOMEN: Soft, nontender, nondistended abdomen. No guarding, no rebound. No masses appreciated. Musculoskeletal: Normal range of motion, no pitting or edema. No cyanosis. NEUROLOGICAL: Cranial nerves grossly intact. Normal speech, normal gait. Normal sensory, motor exams PSYCH: Normal mood, normal affect. SKIN: Large midline incision Physical Exam - Vital signs Vitals: Temp Pulse Resp BP Pulse Ox 97.4 F 69 24 H 146/89 H 84 L 06/12/17 11:13 06/12/17 11:13 06/12/17 11:13 06/12/17 11:13 06/12/17 11:13 Course - Re-evaluation Re-evalutation: 06/12/17 12:01 Probable CHF exacerbation patient is on 2 L satting 91% at rest and I expect admission - Vital Signs Vital signs: Temp Pulse Resp BP Pulse Ox 97.4 F 64 33 H 146/89 H 92 06/12/17 11:13 06/12/17 11:23 06/12/17 13:03 06/12/17 11:13 06/12/17 13:03 - Laboratory Result Diagrams: 06/12/17 11:54 06/12/17 11:54 Laboratory results interpreted by me: 06/12/17 06/12/17 06/12/17 11:35 11:54 11:54 WBC 11.6 H MCV 98 H RDW 14.8 H VBG HCO3 Carbon Dioxide 37 H BUN 24 H Creatinine 1.57 H Est GFR ( Amer) 53 L Est GFR (Non-Af Amer) 44 L Glucose 116 H Direct Bilirubin 0.5 H AST 60 H Urine Protein 100 H 06/12/17 12:03 WBC MCV RDW VBG HCO3 33.7 H Carbon Dioxide BUN Creatinine Est GFR ( Amer) Est GFR (Non-Af Amer) Glucose Direct Bilirubin AST Urine Protein Discharge - Discharge Clinical Impression: Hypoxemia COPD (chronic obstructive pulmonary disease) Qualifiers: COPD type: unspecified COPD Qualified Code(s): J44.9 - Chronic obstructive pulmonary disease, unspecified Condition: Stable Disposition: ADMITTED INPATIENT Admitting Provider: Hospitalist Unit Admitted: Telemetry
[2017-06-12 12:08] LABS: ABSOLUTE BASOPHILS # (AUTO) 0.2 10^3/uL (0.0-0.2); ABSOLUTE EOSINOPHILS # (AUTO) 0.6 10^3/uL (0.0-0.6); ABSOLUTE LYMPHOCYTES (AUTO) 2.7 10^3/uL (0.5-4.7); ABSOLUTE MONOCYTES (AUTO) 0.8 10^3/uL (0.1-1.4); ABSOLUTE NEUT (AUTO) 7.3 10^3/uL (1.7-8.2); BASOPHILS % (AUTO) 1.4 % (0-2); EOSINOPHILS % (AUTO) 4.9 % (0-6); HEMATOCRIT 43.5 % (37.9-51.0); HEMOGLOBIN 14.2 g/dL (13.5-17.0); HGB HCT DIFFERENCE -0.9; LYMPHOCYTES % (AUTO) 23.5 % (13-45); MEAN CORPUSCULAR HGB CONC 32.6 g/dL (32.0-36.0); MEAN CORPUSCULAR VOLUME 98 fl (80-97); MONOCYTES % (AUTO) 7.2 % (3-13); RED BLOOD COUNT 4.43 10^6/uL (4.35-5.55); RED CELL DISTRIBUTION WIDTH 14.8 % (11.5-14.0); WHITE BLOOD COUNT 11.6 10^3/uL (4.0-10.5)
[2017-06-12 12:19] LABS: APPEARANCE,URINE CLEAR; BILIRUBIN,URINE NEGATIVE (NEGATIVE); GLUCOSE, URINE NEGATIVE (NEGATIVE); KETONES,URINE NEGATIVE (NEGATIVE); LEUKOCYTE ESTERASE,URINE NEGATIVE (NEGATIVE); NITRITE,URINE NEGATIVE (NEGATIVE); PROTEIN,URINE 100 mg/dL (NEGATIVE); URINE SPECIFIC GRAVITY 1.004; UROBILINOGEN,URINE NEGATIVE mg/dL (<2.0)
[2017-06-12 12:20] LABS: PROTHROMBIN TIME 14.3 SEC (11.4-15.4)
[2017-06-12 12:25] LABS: ALANINE AMINOTRANSFERASE 23 U/L (21-72); ALBUMIN 4.2 g/dL (3.5-5.0); ALKALINE PHOSPHATASE 99 U/L (38-126); ANION GAP 9 (5-19); ASPARTATE AMINO TRANSFERASE 60 U/L (17-59); BILIRUBIN,DIRECT 0.5 mg/dL (0.0-0.4); BILIRUBIN,TOTAL 1.1 mg/dL (0.2-1.3); BLOOD UREA NITROGEN 24 mg/dL (7-20); CALCIUM 8.5 mg/dL (8.4-10.2); CARBON DIOXIDE 37 mmol/L (22-30); CHLORIDE 98 mmol/L (98-107); CREATININE RESULT 1.57 mg/dL (0.52-1.25); GLUCOSE 116 mg/dL (75-110); POTASSIUM 3.8 mmol/L (3.6-5.0); SODIUM 144.1 mmol/L (137-145); TOTAL PROTEIN 7.7 g/dL (6.3-8.2)
[2017-06-12 12:26] LABS: VENOUS BLOOD BASE EXCESS 6.3 mmol/L; VENOUS BLOOD HCO3 33.7 mmol/L (20-32); VENOUS BLOOD PCO2 59.7 mmHg (35-63); VENOUS BLOOD PH 7.37 (7.30-7.42)
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
[2017-06-12] MEDS ORDERED: IPRATROPIUM/ALBUTEROL 0.5-2.5 MG/3 ML AMPUL NEB ONE ×3 (14:06→22:15)
[2017-06-12 14:42] LABS: CREATINE KINASE MB 3.07 ng/mL (<4.55); TROPONIN I 0.027 ng/mL
[2017-06-12] MEDS ORDERED: METHYLPREDNISOLONE INJ 125 MG/2 ML SDV IV ONE (14:45)
[2017-06-12] MEDS ORDERED: ALBUTEROL SULFATE 0.083% NEB 2.5 MG/3 ML AMPUL NEB PRN (15:31)
[2017-06-12] MEDS ORDERED: ONDANSETRON 4 MG TAB.RAPDIS PO PRN (15:31)
[2017-06-12] MEDS ORDERED: ACETAMINOPHEN 325 MG TABLET PO PRN (15:31)
[2017-06-12] MEDS ORDERED: PROMETHAZINE HCL 25 MG TABLET PO PRN (15:58)
[2017-06-12] MEDS ORDERED: BUDESONIDE NEB 0.5 MG/2 ML AMPUL NEB ONE (16:30)
[2017-06-12] MEDS ORDERED: LANSOPRAZOLE 15 MG TAB.RAP.DR PO ONE (17:00)
[2017-06-12] MEDS ORDERED: MONTELUKAST SODIUM 10 MG TABLET PO ONE (17:00)
[2017-06-12] MEDS: BUDESONIDE NEB 0.5 MG/2 ML AMPUL NEB SCH (20:28)
[2017-06-12] MEDS: METHYLPREDNISOLONE INJ 125 MG/2 ML SDV IV SCH (21:06)
[2017-06-12] MEDS: GUAIFENESIN 600 MG TABLET.SA PO SCH (21:07)
[2017-06-12] MEDS: HYDROXYZINE PAMOATE 50 MG CAPSULE PO SCH (21:07)
[2017-06-12] MEDS: METOPROLOL TARTRATE 25 MG TABLET PO SCH (21:08)
[2017-06-12] MEDS ORDERED: (PENDING PHARMACY ID) (Hydroxyzine Hcl [Hydroxyzine Hcl] 50 MG) PO SCH (22:00)
--- NOTE | 2017-06-13 03:54 | EKG REPORT ---
SEVERITY:- ABNORMAL ECG - SINUS RHYTHM PROBABLE RVH W/ SECONDARY REPOL ABNORMALITY BORDERLINE PROLONGED QT INTERVAL : Confirmed by: Basia Valle MD 13-Jun-2017 03:54:31
[2017-06-13] MEDS: METHYLPREDNISOLONE INJ 125 MG/2 ML SDV IV SCH ×2 (05:37→13:20)
[2017-06-13] MEDS ORDERED: LANSOPRAZOLE 15 MG TAB.RAP.DR PO SCH (06:00)
[2017-06-13 06:34] LABS: HEMATOCRIT 41.4 % (37.9-51.0); HEMOGLOBIN 13.9 g/dL (13.5-17.0); HGB HCT DIFFERENCE 0.3; MEAN CORPUSCULAR HGB CONC 33.6 g/dL (32.0-36.0); MEAN CORPUSCULAR VOLUME 98 fl (80-97); RED BLOOD COUNT 4.22 10^6/uL (4.35-5.55); WHITE BLOOD COUNT 10.1 10^3/uL (4.0-10.5)
[2017-06-13 06:35] LABS: ABSOLUTE LYMPHOCYTES (AUTO) 1.3 10^3/uL (0.5-4.7); ABSOLUTE MONOCYTES (AUTO) 0.1 10^3/uL (0.1-1.4); ABSOLUTE NEUT (AUTO) 8.7 10^3/uL (1.7-8.2); BASOPHILS % (AUTO) 0.2 % (0-2); LYMPHOCYTES % (AUTO) 12.5 % (13-45); MONOCYTES % (AUTO) 1.4 % (3-13); SEGMENTED NEUTROPHILS % (AUTO) 85.9 % (42-78)
[2017-06-13 06:45] LABS: ANION GAP 10 (5-19); BLOOD UREA NITROGEN 28 mg/dL (7-20); CALCIUM 9.1 mg/dL (8.4-10.2); CARBON DIOXIDE 38 mmol/L (22-30); CHLORIDE 96 mmol/L (98-107); CREATININE RESULT 1.45 mg/dL (0.52-1.25); GLUCOSE 158 mg/dL (75-110); MAGNESIUM 1.3 mg/dL (1.6-2.3); POTASSIUM 4.5 mmol/L (3.6-5.0); SODIUM 143.6 mmol/L (137-145)
[2017-06-13] MEDS ORDERED: IPRATROPIUM/ALBUTEROL 0.5-2.5 MG/3 ML AMPUL NEB SCH (08:00)
[2017-06-13] MEDS: BUDESONIDE NEB 0.5 MG/2 ML AMPUL NEB SCH (08:46)
[2017-06-13] MEDS: LANSOPRAZOLE 15 MG TAB.RAP.DR PO SCH ×2 (09:00→16:36)
[2017-06-13] MEDS: ENOXAPARIN SODIUM INJ 40 MG/0.4 ML DISP.SYRIN SUBCUT SCH (09:01)
[2017-06-13] MEDS: METOPROLOL TARTRATE 25 MG TABLET PO SCH ×2 (09:01→21:30)
[2017-06-13] MEDS: GUAIFENESIN 600 MG TABLET.SA PO SCH (09:02)
[2017-06-13] MEDS: DOCUSATE SODIUM 100 MG CAPSULE PO SCH (09:02)
[2017-06-13] MEDS: ASPIRIN 81 MG TABLET, ENT COATED PO SCH (09:03)
[2017-06-13] MEDS: TORSEMIDE 20 MG TABLET PO SCH ×2 (09:04→17:05)
[2017-06-13] MEDS ORDERED: AZITHROMYCIN 250 MG TABLET PO SCH (10:00)
[2017-06-13] MEDS ORDERED: DOCUSATE SODIUM 100 MG CAPSULE PO SCH (10:00)
[2017-06-13] MEDS ORDERED: (PENDING PHARMACY ID) (Docusate Calcium [Docusate Calcium] 240 MG) PO SCH (10:00)
[2017-06-13] MEDS: MAGNESIUM SULFATE/D5W 1 GM/100 ML RTUPB IV SCH ×3 (12:00→14:23)
--- NOTE | 2017-06-13 13:38 | PDOC PROGRESS REPORT ---
Subjective Progress Note for:: 06/13/17 Subjective:: The patient is a 67-year-old male who has a chronic history of shortness of breath. 6 months ago he was started on oxygen by his primary care provider at the [facility]. He was told to wear it "" as needed. He was also told that if his oxygen saturations should drop below 70% he should go to the hospital. The patient started to develop increasing shortness of breath approximately 1 week ago. Despite this he did travel to [facility] to see a play [place]. He has had progressive shortness of breath over a week. The patient has never been told that he has COPD. He has been told that he has congestive heart failure. The patient is feeling improved today. CTA chest negative for PE. Also, images have been reviewed by me and I do not see significant emphysema present. Physical Exam Vital Signs: Temp Pulse Resp BP Pulse Ox 97.8 F 70 18 117/74 87 L 06/13/17 07:23 06/13/17 08:48 06/13/17 08:48 06/13/17 07:23 06/13/17 08:48 Intake & Output 06/12/17 06/13/17 06/14/17 06:59 06:59 06:59 Intake Total 615 Balance 615 Weight 123.5 kg Additional comments: Patient is an obese white male sitting up in bed. He is not in any distress. He is conversing freely and does not appear to be dyspneic while at rest. His cognition is normal. He is able to relate both recent and remote facts about his medical history. His facial appearance is normal. His lips and mucous membranes are moist. His lungs are actually clear both anteriorly and posteriorly. I do not appreciate any wheezing. The cardiac exam demonstrates a regular rate and rhythm. The patient has a grade 3/6 systolic ejection murmur heard loudest at the left upper sternal border. The patient did not have any gallops or rubs appreciated. The abdomen is obese but soft. Bowel sounds are present in all 4 quadrants. There is no guarding or rebound present there are no hernias or masses present. The patient's lower extremities demonstrate 2+ edema with changes consistent with venous stasis. The patient has multiple ulcerations over his legs bilaterally. These mostly appear to be healed. I do not see any weeping at this time. Results Laboratory Results: 06/13/17 05:56 06/13/17 05:56 06/13/17 06/13/17 05:56 05:56 WBC 10.1 RBC 4.22 L Hgb 13.9 Hct 41.4 MCV 98 H MCH 33.0 MCHC 33.6 RDW 15.0 H Plt Count 335 Seg Neutrophils % 85.9 H Lymphocytes % 12.5 L Monocytes % 1.4 L Eosinophils % 0.0 Basophils % 0.2 Absolute Neutrophils 8.7 H Absolute Lymphocytes 1.3 Absolute Monocytes 0.1 Absolute Eosinophils 0.0 Absolute Basophils 0.0 Sodium 143.6 Potassium 4.5 Chloride 96 L Carbon Dioxide 38 H Anion Gap 10 BUN 28 H Creatinine 1.45 H Est GFR ( Amer) 58 L Est GFR (Non-Af Amer) 48 L Glucose 158 H Calcium 9.1 Magnesium 1.3 L Impressions: Chest/Abdomen CTA 06/12/17 11:44 IMPRESSION: NORMAL CTA OF THE CHEST. NO PULMONARY EMBOLI. Assessment & Plan - Diagnosis (1) Hypoxemia Is this a current diagnosis for this admission?: Yes Plan: Continue supplemental oxygen to keep saturations greater than 90%. (2) CHF (congestive heart failure) Qualifiers: Congestive heart failure type: unspecified congestive heart failure type Congestive heart failure chronicity: acute on chronic Qualified Code(s): I50.9 - Heart failure, unspecified Is this a current diagnosis for this admission?: Yes Plan: We will await results of echocardiogram. This will determine if this is diastolic, systolic or combined. Continue diuresis. I do not think that the patient has COPD with exacerbation and I am going to stop corticosteroids. I will also start bronchodilators. (3) Chronic renal failure Qualifiers: Chronic kidney disease stage: stage 3 (moderate) Qualified Code(s): N18.3 - Chronic kidney disease, stage 3 (moderate) Is this a current diagnosis for this admission?: Yes Plan: Creatinine is 1.45 today. The patient has stage II chronic kidney disease. Due to the fact that diuretics have been increased we will need to monitor renal output and creatinine with electrolytes daily. We need to avoid nephrotoxins and dose medications appropriately. (4) Gastroesophageal reflux disease Qualifiers: Esophagitis presence: without esophagitis Qualified Code(s): K21.9 - Gastro -esophageal reflux disease without esophagitis Is this a current diagnosis for this admission?: Yes Plan: Continue lansoprazole. (5) Hypertension Qualifiers: Hypertension type: essential hypertension Qualified Code(s): I10 - Essential (primary) hypertension Is this a current diagnosis for this admission?: Yes Plan: Blood pressure is currently controlled. In fact, blood pressure is low normal. We need to monitor closely while being diuresed. (6) Osteoarthritis Qualifiers: Osteoarthritis location: unspecified site Osteoarthritis type: unspecified Qualified Code(s): M19.90 - Unspecified osteoarthritis, unspecified site Is this a current diagnosis for this admission?: Yes Plan: Symptoms appear to be stable at this time. (7) Peripheral edema Is this a current diagnosis for this admission?: Yes Plan: Diuretics should alleviate some of the swelling. - Time Time Spent with patient: 25-34 minutes - Inpatient Certification Medical Necessity: Need Close Monitoring Due to Risk of Patient Decompensation, Risk of Complication if Not Cared For in Hospital
[2017-06-13] MEDS ORDERED: CEFTRIAXONE 2 GM/D5W RTU 2 GM/50 ML RTUPB IV SCH (17:00)
[2017-06-13] MEDS: HYDROCODONE/ACETAMINOPHEN 10-325 MG TABLET PO PRN (19:08)
--- NOTE | 2017-06-13 19:11 | XCELERA REPORT ---
[address] [address] Transthoracic Echocardiogram Report Name: JULIETH BRYAN Age: 67 yrs Gender: Male : 1950 Patient Status: Inpatient Patient Location: [address] [place] [address] Study Date: 06/13/2017 03:21 PM Height: 71 in Weight: 272 lb BSA: 2.4 m2 Procedure: A complete two-dimensional transthoracic echocardiogram was performed (2D, M-mode, spectral and color flow Doppler). The study was technically difficult with many images being suboptimal in quality. Reason For Study: Congestive heart failure exacerbation Ordering Physician: HARRY GERARD Performed By: Libby Weller Interpretation Summary The study was technically difficult with many images being suboptimal in quality. The left ventricular ejection fraction is within normal limits. Doppler measurements suggest pseudonormalized left ventricular relaxation, which is associated with grade II/IV or mild to moderate diastolic dysfunction There is mild concentric left ventricular hypertrophy. The left ventricle is grossly normal size. Wall motion cannot be accurately commented on, but no definite regional wall motion abnormalities noted. The right ventricle is moderately dilated. The right ventricle appears to be hypertrophied The right ventricular systolic function is normal. The left atrium is mildly dilated. The right atrium is mild to moderately dilated. There is a trace to mild amount of mitral regurgitation There is no mitral valve stenosis. There is mild aortic stenosis There is a peak gradient of 35, mean 15 mm of Hg. There is a trace amount of aortic regurgitation There is a trace to mild amount of tricuspid regurgitation There is servere pulmonary hypertension by echo Right ventricular systolic pressure is estimated to be elevated at >60mmHg. The inferior vena cava appeared dilated and decreased < 50% with respiration (RAP 15-20 mmHg) There is no pericardial effusion. MMode/2D Measurements & Calculations RVDd: 4.9 cm LVIDd: 5.1 cm FS: 39.2 % Ao root diam: 2.7 cm IVSd: 0.96 cm LVIDs: 3.1 cm EDV(Teich): 121.5 ml LVPWd: 0.98 cm ESV(Teich): 37.1 ml Ao root area: 5.7 cm2 EF(Teich): 69.4 % LA dimension: 5.3 cm Doppler Measurements & Calculations MV E max juno: MV P1/2t max juno: Ao V2 max: LV V1 max P.4 cm/sec 122.8 cm/sec 291.7 cm/sec 7.1 mmHg MV A max juno: MV P1/2t: 63.5 msec Ao max PG: LV V1 mean P.1 cm/sec 34.0 mmHg 4.0 mmHg MV E/A: 1.3 MVA(P1/2t): 3.5 cm2 Ao V2 mean: LV V1 max: MV dec slope: 177.0 cm/sec 133.5 cm/sec 566.8 cm/sec2 Ao mean PG: LV V1 mean: MV dec time: 0.21 sec15.5 mmHg 92.3 cm/sec Ao V2 VTI: LV V1 VTI: 48.0 cm 26.3 cm PA V2 max: PI end-d juno: TR max juno: 114.6 cm/sec 210.4 cm/sec 359.7 cm/sec PA max PG: TR max P.3 mmHg 51.8 mmHg Left Ventricle The left ventricle is grossly normal size. There is mild concentric left ventricular hypertrophy. The left ventricular ejection fraction is within normal limits. Doppler measurements suggest pseudonormalized left ventricular relaxation, which is associated with grade II/IV or mild to moderate diastolic dysfunction. Wall motion cannot be accurately commented on, but no definite regional wall motion abnormalities noted. Right Ventricle The right ventricle is moderately dilated. The right ventricle appears to be hypertrophied. The right ventricular systolic function is normal. Atria The right atrium is mild to moderately dilated. The left atrium is mildly dilated. Interarterial septum not well visualized and not well dopplered. Cannot comment on ASD/PFO presence. Mitral Valve There is mild mitral annular calcification. There is no mitral valve stenosis. There is a trace to mild amount of mitral regurgitation. Aortic Valve The aortic valve is moderately calcified. There is mild aortic stenosis. There is a peak gradient of 35, mean 15 mm of Hg. There is a trace amount of aortic regurgitation. Tricuspid Valve The tricuspid valve is not well visualized, but is grossly normal. There is no tricuspid stenosis. There is a trace to mild amount of tricuspid regurgitation. There is servere pulmonary hypertension by echo. Right ventricular systolic pressure is estimated to be elevated at >60mmHg. Pulmonic Valve The pulmonic valve is not well visualized. Great Vessels The aortic root is not well visualized. The inferior vena cava appeared dilated and decreased < 50% with respiration (RAP 15-20 mmHg). Effusions There is no pericardial effusion. : HARRY GERARD > Jason Azar
[2017-06-13] MEDS: HYDROXYZINE PAMOATE 50 MG CAPSULE PO SCH (21:30)
[2017-06-13] MEDS ORDERED: MONTELUKAST SODIUM 10 MG TABLET PO SCH (22:00)
[2017-06-14] MEDS: LANSOPRAZOLE 15 MG TAB.RAP.DR PO SCH ×2 (08:32→17:34)
--- NOTE | 2017-06-14 08:43 | PDOC H&P ---
History of Present Illness Admission Date/PCP: 06/12/17 15:33 JULIETTE LOWERY MD Patient complains of: Shortness of breathe History of Present Illness: JULIETH BRYAN is a 67 year old male who presented with 2 weeks of worsening shortness of breathe. Patient has history of COPD due to 50 years of smoking. He has since quite as of 3 years ago. Patient states use 2 liters. He noted that he oxygen saturations were in the 70's but normally he sats in the 80's. Patient denies any cough or runny nose. He denies any sick contacts. Patient states he has been doing a lot of work outside and the heat sometimes gets to him. Patient was out on the boat today and when he came in he was unable to catch his breathe. That's when he decided to come to the hospital. In the ED CT per PE was negative, however he was found to be hypoxic. Hospitalist was called to admit and treat patient for hypoxic respiratory failure and COPD exacerbation. Past Medical History Cardiac Medical History: Reports: Congestive Heart Failure, Coronary Artery Disease, Hypertension Pulmonary Medical History: Reports: Chronic Obstructive Pulmonary Disease (COPD) Renal/ Medical History: Reports: Chronic Kidney Disease GI Medical History: Reports: Gastroesophageal Reflux Disease Musculoskeltal Medical History: Reports: Arthritis Past Surgical History Past Surgical History: Reports: Orthopedic Surgery - Patient has had bilateral shoulder joint replacements. Social History Information Source: Patient Lives with: Alone Smoking Status: Former Smoker Frequency of Alcohol Use: None Hx Recreational Drug Use: No Drugs: None Hx Prescription Drug Abuse: No Past Social History Note: smoker for 50 years prior to quitting 3 years ago. - Advance Directive Resuscitation Status: Full Code Family History Family History: CAD, Other - aneurysm in mother in 50's heart attack in father in 60's Parental Family History Reviewed: Yes Children Family History Reviewed: Yes - daughter 3 weeks ago from heart failure was batteling cancer in her 40s daughter accidentally shot and killed at the age of 9 Sibling(s) Family History Reviewed.: Yes Medication/Allergy Home Medications: Aspirin [Ecotrin 81 mg EC Tablet] 81 mg PO DAILY tabec 09/26/16 Metoprolol Tartrate [Lopressor 25 mg Tablet] 25 mg PO Q12 #60 tablet 09/26/16 Torsemide [Demadex 20 mg Tablet] 20 mg PO BID #60 tablet 09/26/16 Allopurinol [Zyloprim 100 mg Tablet] 100 mg PO DAILY 06/12/17 Docusate Calcium 240 mg PO DAILY 06/12/17 Hydroxyzine HCl 50 mg PO QHS 06/12/17 Omeprazole 20 mg PO BID 06/12/17 Allergies/Adverse Reactions: Sulfa (Sulfonamide Antibiotics) Allergy (Verified 06/12/17 11:13) aspirin Adverse Reaction (Mild, Verified 06/12/17 13:46) Review of Systems Constitutional: PRESENT: fatigue Eyes: ABSENT: visual disturbances Ears: ABSENT: hearing changes Nose, Mouth, and Throat: ABSENT: vertigo Cardiovascular: ABSENT: chest pain, edema, orthropnea, palpitations Respiratory: PRESENT: dyspnea. ABSENT: cough Gastrointestinal: ABSENT: abdominal pain, nausea, vomiting Genitourinary: ABSENT: dysuria, hematuria Musculoskeletal: ABSENT: deformity Integumentary: ABSENT: wounds Neurological: ABSENT: focal weakness Physical Exam Vital Signs: Temp Pulse Resp BP Pulse Ox 99.0 F 67 18 169/88 H 91 L 06/12/17 19:14 06/12/17 20:28 06/12/17 20:28 06/12/17 19:14 06/12/17 20:28 Results Impressions: Chest/Abdomen CTA 06/12/17 11:44 IMPRESSION: NORMAL CTA OF THE CHEST. NO PULMONARY EMBOLI. Assessment & Plan - Diagnosis (1) COPD (chronic obstructive pulmonary disease) Qualifiers: COPD type: COPD with acute exacerbation Qualified Code(s): J44.1 - Chronic obstructive pulmonary disease with (acute) exacerbation Is this a current diagnosis for this admission?: Yes Plan: Patient has history of COPD now presenting with exacerbation due to being in the heat or possible allergens as patient was outside when this happend. Patient currently on IV steroids, nebs,pulmicort, mucinex, singulair and empiric antibiotics. No finding on chest X ray and patient denies any productive cough. Patient respiratory symptoms are mild but will treat and if patient is doing better aggressive treatment may be discontinued. (2) Hypoxemia Is this a current diagnosis for this admission?: Yes Plan: Patient has chronic hypoxemia and uses supplemental oxygen at home. Hypoxemia may be worsened by his acute COPD exacerbation. Will continue treatment of his COPD exacerbation and monitor his oxygen saturations. PE was ruled out. (3) CHF (congestive heart failure) Qualifiers: Congestive heart failure type: unspecified congestive heart failure type Congestive heart failure chronicity: acute on chronic Qualified Code(s): I50.9 - Heart failure, unspecified Is this a current diagnosis for this admission?: Yes Plan: Will resume torsemide and metoprolol at this time. Patient does appear euvolemic at this time. (4) Chronic renal failure Qualifiers: Chronic kidney disease stage: stage 3 (moderate) Qualified Code(s): N18.3 - Chronic kidney disease, stage 3 (moderate) Is this a current diagnosis for this admission?: Yes Plan: Appears to be at base line. Will continue to monitor. (5) Hypertension Qualifiers: Hypertension type: essential hypertension Qualified Code(s): I10 - Essential (primary) hypertension Is this a current diagnosis for this admission?: Yes Plan: Continue metoprolol and monitor. - Time Time Spent: 30 to 50 Minutes Anticipated discharge: Home Within: within 72 hours
[2017-06-14 09:17] LABS: ANION GAP 9 (5-19); BLOOD UREA NITROGEN 38 mg/dL (7-20); CALCIUM 9.7 mg/dL (8.4-10.2); CARBON DIOXIDE 37 mmol/L (22-30); CHLORIDE 94 mmol/L (98-107); CREATININE RESULT 1.61 mg/dL (0.52-1.25); GLUCOSE 128 mg/dL (75-110); POTASSIUM 4.2 mmol/L (3.6-5.0); SODIUM 140.1 mmol/L (137-145)
[2017-06-14] MEDS: DOCUSATE SODIUM 100 MG CAPSULE PO SCH (09:28)
[2017-06-14] MEDS: ENOXAPARIN SODIUM INJ 40 MG/0.4 ML DISP.SYRIN SUBCUT SCH (09:28)
[2017-06-14] MEDS: METOPROLOL TARTRATE 25 MG TABLET PO SCH ×2 (09:28→21:06)
[2017-06-14] MEDS: TORSEMIDE 20 MG TABLET PO SCH ×2 (09:28→17:34)
[2017-06-14] MEDS: ASPIRIN 81 MG TABLET, ENT COATED PO SCH (09:28)
--- NOTE | 2017-06-14 15:39 | PDOC PROGRESS REPORT ---
Subjective Progress Note for:: 06/14/17 Subjective:: The patient is a 67-year-old male who has a chronic history of shortness of breath. 6 months ago he was started on oxygen by his primary care provider at the [facility]. He was told to wear it "" as needed. He was also told that if his oxygen saturations should drop below 70% he should go to the hospital. The patient started to develop increasing shortness of breath approximately 1 week ago. Despite this he did travel to [facility] to see a play [place]. He has had progressive shortness of breath over a week. The patient has never been told that he has COPD. He has been told that he has congestive heart failure. The patient is feeling improved today. CTA chest negative for PE. Also, images have been reviewed by me and I do not see significant emphysema present. Echocardiogram was ordered yesterday. This demonstrates severe pulmonary hypertension. Left-sided heart function is fairly well preserved. The patient now told me that he has been told that he needs to wear oxygen for many many years. He generally only wears it when he feels that it is necessary. He told me that he has not yet seen a business job titles. He told me that he feels that his animal daycare provider may have mentioned something about damage to the right side of his heart but is not sure. Today, he feels significantly improved when compared to admission. Physical Exam Vital Signs: Temp Pulse Resp BP Pulse Ox 98.6 F 81 20 117/64 97 06/14/17 12:25 06/14/17 14:00 06/14/17 12:25 06/14/17 12:25 06/14/17 12:25 Intake & Output 06/13/17 06/14/17 06/15/17 06:59 06:59 06:59 Intake Total 615 4560 Balance 615 4560 Weight 123.5 kg 123.5 kg Additional comments: Patient was sitting up on the edge of his bed. He had friends in his room and was conversing easily. He was off his oxygen. He told me that he was off his oxygen for 30 minutes. We checked his oxygen saturation and it was 83% on room air. He did not appear to be in distress. He does have some dusky cyanosis. His cognition does not appear to be impaired. The patient's lungs remain clear to auscultation bilaterally. Today, his heart murmur was softer and was a grade 1/6 systolic ejection murmur at the left upper sternal border. I did not appreciate any gallops or rubs. The abdomen is obese but soft. Bowel sounds are present. There is no guarding or rebound noted. There are no hernias or masses present. The lower extremities demonstrate 2+ edema and changes of chronic venous stasis with significant ulceration. Results Laboratory Results: 06/13/17 05:56 06/14/17 08:45 06/14/17 08:45 Sodium 140.1 Potassium 4.2 Chloride 94 L Carbon Dioxide 37 H Anion Gap 9 BUN 38 H Creatinine 1.61 H Est GFR ( Amer) 52 L Est GFR (Non-Af Amer) 43 L Glucose 128 H Calcium 9.7 Magnesium 2.0 Impressions: Chest/Abdomen CTA 06/12/17 11:44 IMPRESSION: NORMAL CTA OF THE CHEST. NO PULMONARY EMBOLI. Assessment & Plan - Diagnosis (1) Hypoxemia Is this a current diagnosis for this admission?: Yes Plan: It appears that the patient has chronically been hypoxic for years. He was admitted in September 2016 to this facility. He has never followed up with a business job titles. I tried to reinforce today in front of his friends that oxygen must be worn 24 hours and that when he has low oxygen levels he is only doing more damage to his heart. (2) CHF (congestive heart failure) Qualifiers: Congestive heart failure type: unspecified congestive heart failure type Congestive heart failure chronicity: acute on chronic Qualified Code(s): I50.9 - Heart failure, unspecified Is this a current diagnosis for this admission?: Yes Plan: We will await results of echocardiogram. Patient has preserved ejection fraction. Patient has severe pulmonary hypertension. Will continue his routine diuresis at this time. (3) Chronic renal failure Qualifiers: Chronic kidney disease stage: stage 3 (moderate) Qualified Code(s): N18.3 - Chronic kidney disease, stage 3 (moderate) Is this a current diagnosis for this admission?: Yes Plan: Creatinine is 1.61 today. Fairly stable. The patient has stage II chronic kidney disease. Due to the fact that diuretics have been increased we will need to monitor renal output and creatinine with electrolytes daily. Outpatient dose of diuretics will be continued. We need to avoid nephrotoxins and dose medications appropriately. (4) Gastroesophageal reflux disease Qualifiers: Esophagitis presence: without esophagitis Qualified Code(s): K21.9 - Gastro -esophageal reflux disease without esophagitis Is this a current diagnosis for this admission?: Yes Plan: Continue lansoprazole. (5) Hypertension Qualifiers: Hypertension type: essential hypertension Qualified Code(s): I10 - Essential (primary) hypertension Is this a current diagnosis for this admission?: Yes Plan: Blood pressure is currently controlled. In fact, blood pressure is low normal. We need to monitor closely while being diuresed. (6) Osteoarthritis Qualifiers: Osteoarthritis location: unspecified site Osteoarthritis type: unspecified Qualified Code(s): M19.90 - Unspecified osteoarthritis, unspecified site Is this a current diagnosis for this admission?: Yes Plan: Symptoms appear to be stable at this time. Patient takes Emerson at home. It is unclear how many milligrams of hydrocodone he uses. He did ask for a dose of morphine as needed here. He states that that is very uncomfortable. (7) Peripheral edema Is this a current diagnosis for this admission?: Yes Plan: Diuretics should alleviate some of the swelling. By reading outpatient records this appears to be his baseline. However, will check Dopplers as part of his pulmonary hypertension workup. (8) Pulmonary hypertension Is this a current diagnosis for this admission?: Yes Plan: Echocardiogram testing confirms severe pulmonary hypertension. This does not appear to be secondary to left-sided heart dysfunction. The patient is not in and age group where he would have pulmonary arterial hypertension. I suspect that the pulmonary hypertension is secondary to advanced lung disease. The patient will need additional workup. He will need baseline pulmonary function testing. I will order Dopplers to complete his venous thromboembolic disease workup. He did have a VQ scan in September of this year. This does not need to be repeated. The patient was working in [employer] most of his life. He could have been exposed to asbestos. I would recommend a high resolution CT scan of the chest. He should also get a shunt study to look for a right to left shunt if those tests are negative. We may also need to look for an intrapulmonary shunt as well. The patient should have outpatient follow-up with a business job titles. Again, I reinforced the need for wearing oxygen at all times. - Time Time Spent with patient: 35 or more minutes - Inpatient Certification Medical Necessity: Need Close Monitoring Due to Risk of Patient Decompensation
--- NOTE | 2017-06-14 15:43 | PDOC PROGRESS REPORT ---
Subjective Progress Note for:: 06/14/17 Subjective:: Note entered in error. See alternate entry for today. Physical Exam Vital Signs: Temp Pulse Resp BP Pulse Ox 98.6 F 81 20 117/64 97 06/14/17 12:25 06/14/17 14:00 06/14/17 12:25 06/14/17 12:25 06/14/17 12:25 Intake & Output 06/13/17 06/14/17 06/15/17 06:59 06:59 06:59 Intake Total 615 4560 Balance 615 4560 Weight 123.5 kg 123.5 kg Results Laboratory Results: 06/13/17 05:56 06/14/17 08:45 06/14/17 08:45 Sodium 140.1 Potassium 4.2 Chloride 94 L Carbon Dioxide 37 H Anion Gap 9 BUN 38 H Creatinine 1.61 H Est GFR ( Amer) 52 L Est GFR (Non-Af Amer) 43 L Glucose 128 H Calcium 9.7 Magnesium 2.0 Impressions: Chest/Abdomen CTA 06/12/17 11:44 IMPRESSION: NORMAL CTA OF THE CHEST. NO PULMONARY EMBOLI. Assessment & Plan - Diagnosis (1) Hypoxemia Is this a current diagnosis for this admission?: Yes (2) CHF (congestive heart failure) Qualifiers: Congestive heart failure type: unspecified congestive heart failure type Congestive heart failure chronicity: acute on chronic Qualified Code(s): I50.9 - Heart failure, unspecified Is this a current diagnosis for this admission?: Yes (3) Chronic renal failure Qualifiers: Chronic kidney disease stage: stage 3 (moderate) Qualified Code(s): N18.3 - Chronic kidney disease, stage 3 (moderate) Is this a current diagnosis for this admission?: Yes (4) Gastroesophageal reflux disease Qualifiers: Esophagitis presence: without esophagitis Qualified Code(s): K21.9 - Gastro -esophageal reflux disease without esophagitis Is this a current diagnosis for this admission?: Yes (5) Hypertension Qualifiers: Hypertension type: essential hypertension Qualified Code(s): I10 - Essential (primary) hypertension Is this a current diagnosis for this admission?: Yes (6) Osteoarthritis Qualifiers: Osteoarthritis location: unspecified site Osteoarthritis type: unspecified Qualified Code(s): M19.90 - Unspecified osteoarthritis, unspecified site Is this a current diagnosis for this admission?: Yes (7) Peripheral edema Is this a current diagnosis for this admission?: Yes
[2017-06-14] MEDS ORDERED: PREDNISONE 20 MG TABLET PO ONE (16:30)
[2017-06-14] MEDS: MORPHINE SULFATE 10 MG/ML INJ IV PRN ×2 (18:59→23:36)
[2017-06-14] MEDS: BUDESONIDE/FORMOTEROL 160-4.5 MCG 60 PUFF/6 GM MDI IH SCH (21:05)
[2017-06-14] MEDS: HYDROXYZINE PAMOATE 50 MG CAPSULE PO SCH (21:06)
[2017-06-15 05:12] LABS: ANION GAP 10 (5-19); BLOOD UREA NITROGEN 42 mg/dL (7-20); CALCIUM 8.8 mg/dL (8.4-10.2); CARBON DIOXIDE 34 mmol/L (22-30); CHLORIDE 97 mmol/L (98-107); CREATININE RESULT 1.68 mg/dL (0.52-1.25); GLUCOSE 136 mg/dL (75-110); MAGNESIUM 1.9 mg/dL (1.6-2.3); POTASSIUM 4.6 mmol/L (3.6-5.0); SODIUM 141.4 mmol/L (137-145)
[2017-06-15] MEDS: HYDROCODONE/ACETAMINOPHEN 10-325 MG TABLET PO PRN (07:29)
[2017-06-15] MEDS: LANSOPRAZOLE 15 MG TAB.RAP.DR PO SCH ×2 (07:30→16:18)
[2017-06-15] MEDS: ENOXAPARIN SODIUM INJ 40 MG/0.4 ML DISP.SYRIN SUBCUT SCH (10:13)
[2017-06-15] MEDS: BUDESONIDE/FORMOTEROL 160-4.5 MCG 60 PUFF/6 GM MDI IH SCH ×2 (10:13→21:06)
[2017-06-15] MEDS: ASPIRIN 81 MG TABLET, ENT COATED PO SCH (10:14)
[2017-06-15] MEDS: METOPROLOL TARTRATE 25 MG TABLET PO SCH ×2 (10:14→21:06)
[2017-06-15] MEDS: DOCUSATE SODIUM 100 MG CAPSULE PO SCH (10:15)
[2017-06-15] MEDS: TORSEMIDE 20 MG TABLET PO SCH (10:16)
[2017-06-15] MEDS: PREDNISONE 20 MG TABLET PO SCH (10:16)
[2017-06-15] MEDS: MORPHINE SULFATE 10 MG/ML INJ IV PRN ×2 (10:37→21:06)
--- NOTE | 2017-06-15 11:45 | PDOC PROGRESS REPORT ---
Subjective Progress Note for:: 06/15/17 Subjective:: The patient is a 67-year-old male who has a chronic history of shortness of breath. 6 months ago he was started on oxygen by his primary care provider at the [facility]. He was told to wear it "" as needed. He was also told that if his oxygen saturations should drop below 70% he should go to the hospital. The patient started to develop increasing shortness of breath approximately 1 week ago. Despite this he did travel to [facility] to see a play [place]. He has had progressive shortness of breath over a week. The patient has never been told that he has COPD. He has been told that he has congestive heart failure. The patient is feeling improved today. CTA chest negative for PE. Also, images have been reviewed by me and I do not see significant emphysema present. Echocardiogram was ordered. This demonstrates severe pulmonary hypertension. Left-sided heart function is fairly well preserved. The patient now told me that he has been told that he needs to wear oxygen for many many years. He generally only wears it when he feels that it is necessary. He told me that he has not yet seen a bobbin fixer. He told me that he feels that his credit rating checker may have mentioned something about damage to the right side of his heart but is not sure. He feels significantly improved when compared to admission. The patient's medication reconciliation form did not show that he was using Symbicort but, he did have Symbicort with him when he came into the hospital. Yesterday I restarted the patient's Symbicort. I will continue albuterol by nebulizer as needed. I have also started the patient on oral corticosteroids. He states today that he is starting to feel significantly better than upon admission. Physical Exam Vital Signs: Temp Pulse Resp BP Pulse Ox 98.1 F 83 20 98/71 L 90 L 06/15/17 07:24 06/15/17 07:24 06/15/17 07:24 06/15/17 07:24 06/15/17 07:24 Intake & Output 06/14/17 06/15/17 06/16/17 06:59 06:59 06:59 Intake Total 4560 1540 Balance 4560 1540 Weight 123.5 kg 124.2 kg Additional comments: The patient appears to be in good spirits. When I walked into the room he was wearing his oxygen. I told him that his color is significantly improved while on the oxygen. He did not have perioral cyanosis. His cognition appears to be normal. Even when his oxygen levels are low his cognition appears to be normal. His lung exam today demonstrated a few scattered rhonchi in the posterior lung evlez. He does not have any wheezing. I have not heard any wheezing since this hospitalization. The patient's cardiac exam is regular. He has a grade 1/6 systolic ejection murmur at the left lower sternal border. The patient does not have any gallops or rubs present. The abdomen is obese but soft. Bowel sounds are present. The patient has no guarding noted. He has no rebound. He has no hernias or masses. The patient's lower extremities demonstrate 1-2+ edema. The patient has lesions and excoriations and appears to have chronic venous stasis changes. The lesions on the legs are unchanged when compared to admission. Patient relates that these have been present for years. Results Laboratory Results: 06/13/17 05:56 06/15/17 03:27 06/15/17 03:27 Sodium 141.4 Potassium 4.6 Chloride 97 L Carbon Dioxide 34 H Anion Gap 10 BUN 42 H Creatinine 1.68 H Est GFR ( Amer) 49 L Est GFR (Non-Af Amer) 41 L Glucose 136 H Calcium 8.8 Magnesium 1.9 06/13/17 08:55 Sputum Gram Stain - Final 06/13/17 08:55 Sputum Sputum Culture - Final NORMAL MAXINE Impressions: Chest/Abdomen CTA 06/12/17 11:44 IMPRESSION: NORMAL CTA OF THE CHEST. NO PULMONARY EMBOLI. Assessment & Plan - Diagnosis (1) Hypoxemia Is this a current diagnosis for this admission?: Yes Plan: It appears that the patient has chronically been hypoxic for years. He was admitted in September 2016 to this facility. He has never followed up with a bobbin fixer. I tried to reinforce today in front of his friends that oxygen must be worn 24 hours and that when he has low oxygen levels he is only doing more damage to his heart. (2) CHF (congestive heart failure) Qualifiers: Congestive heart failure type: unspecified congestive heart failure type Congestive heart failure chronicity: acute on chronic Qualified Code(s): I50.9 - Heart failure, unspecified Is this a current diagnosis for this admission?: Yes Plan: Patient has preserved ejection fraction. Patient has severe pulmonary hypertension. Will continue his routine diuresis at this time. Reacting overall is fairly stable, but trending upward. (3) Chronic renal failure Qualifiers: Chronic kidney disease stage: stage 3 (moderate) Qualified Code(s): N18.3 - Chronic kidney disease, stage 3 (moderate) Is this a current diagnosis for this admission?: Yes Plan: Creatinine is fairly stable but it is trending upward slightly. The patient has stage II chronic kidney disease. Outpatient dose of diuretics will be continued. No additional diuretics were given. We need to avoid nephrotoxins and dose medications appropriately. (4) Gastroesophageal reflux disease Qualifiers: Esophagitis presence: without esophagitis Qualified Code(s): K21.9 - Gastro -esophageal reflux disease without esophagitis Is this a current diagnosis for this admission?: Yes Plan: Continue lansoprazole. (5) Hypertension Qualifiers: Hypertension type: essential hypertension Qualified Code(s): I10 - Essential (primary) hypertension Is this a current diagnosis for this admission?: Yes Plan: Blood pressure is currently controlled. In fact, blood pressure is low normal. We need to monitor closely while being diuresed. (6) Osteoarthritis Qualifiers: Osteoarthritis location: unspecified site Osteoarthritis type: unspecified Qualified Code(s): M19.90 - Unspecified osteoarthritis, unspecified site Is this a current diagnosis for this admission?: Yes Plan: Symptoms appear to be stable at this time. Patient takes [place] at home. It is unclear how many milligrams of hydrocodone he uses. He did ask for a dose of morphine as needed here. He states that at home he takes sleeping pills because he cannot get through the night without a sleeping pill due to pain. (7) Peripheral edema Is this a current diagnosis for this admission?: Yes Plan: Diuretics should alleviate some of the swelling. By reading outpatient records this appears to be his baseline. However, will check Dopplers as part of his pulmonary hypertension workup. Dopplers are ordered but still pending at this time. (8) Pulmonary hypertension Is this a current diagnosis for this admission?: Yes Plan: Echocardiogram testing confirms severe pulmonary hypertension. This does not appear to be secondary to left-sided heart dysfunction. The patient is not in and age group where he would have pulmonary arterial hypertension. I suspect that the pulmonary hypertension is secondary to advanced lung disease. The patient will need additional workup. He will need baseline pulmonary function testing. I will order Dopplers to complete his venous thromboembolic disease workup. He did have a VQ scan in September of this year. This does not need to be repeated. The patient was working in [employer] most of his life. He could have been exposed to asbestos. I would recommend a high resolution CT scan of the chest. He should also get a shunt study to look for a right to left shunt if those tests are negative. We may also need to look for an intrapulmonary shunt as well. Pulmonary consultation is needed. Again, I reinforced the need for wearing oxygen at all times. - Time Time Spent with patient: 25-34 minutes - Inpatient Certification Medical Necessity: Risk of Complication if Not Cared For in Hospital
[2017-06-15] MEDS: HYDROXYZINE PAMOATE 50 MG CAPSULE PO SCH (21:06)
[2017-06-16 05:00] LABS: ANION GAP 8 (5-19); BLOOD UREA NITROGEN 41 mg/dL (7-20); CALCIUM 9.2 mg/dL (8.4-10.2); CARBON DIOXIDE 36 mmol/L (22-30); CHLORIDE 97 mmol/L (98-107); CREATININE RESULT 1.52 mg/dL (0.52-1.25); GLUCOSE 115 mg/dL (75-110); POTASSIUM 4.8 mmol/L (3.6-5.0); SODIUM 141.3 mmol/L (137-145)
[2017-06-16] MEDS: LANSOPRAZOLE 15 MG TAB.RAP.DR PO SCH (07:29)
[2017-06-16] MEDS ORDERED: PROMETHAZINE HCL 25 MG TABLET PO PRN (09:30)
[2017-06-16] MEDS ORDERED: MORPHINE SULFATE 10 MG/ML INJ IV PRN (09:30)
--- NOTE | 2017-06-16 10:10 | RADIOLOGY REPORT (SQ) ---
EXAM DESCRIPTION: VENOUS BILATERAL LOWER COMPLETED DATE/TIME: 06/16/2017 9:54 am REASON FOR STUDY: Severe pulmonary hypertension COMPARISON: None. TECHNIQUE: Dynamic and static whyte scale and color images acquired of both lower extremity venous sy stems. Selected spectral images acquired with additional compression and augmentation maneuvers. Imag es stored on PACS. LIMITATIONS: None. FINDINGS: RIGHT LEG COMMON FEMORAL AND FEMORAL: Normal phasicity, compression and augmentation. No visualized echogenic m aterial on whyte scale. No defects on color images. POPLITEAL: Normal compression and augmentation. No visualized echogenic material on whyte scale. No de fects on color images. CALF VESSELS: Normal compression and augmentation. No visualized echogenic material on whyte scale. No defects on color image. GSV AND SSV: Normal compression. No visualized echogenic material on whyte scale. No defects on color images. ANY DEEP VENOUS INSUFFICIENCY: Not evaluated. ANY EVIDENCE OF POPLITEAL CYST: No. OTHER: No other significant finding. LEFT LEG COMMON FEMORAL AND FEMORAL: Normal phasicity, compression and augmentation. No visualized echogenic m aterial on whyte scale. No defects on color images. POPLITEAL: Normal compression and augmentation. No visualized echogenic material on whyte scale. No de fects on color images. CALF VESSELS: Normal compression and augmentation. No visualized echogenic material on whyte scale. No defects on color images. GSV AND SSV: Normal compression. No visualized echogenic material on whyte scale. No defects on color images. ANY DEEP VENOUS INSUFFICIENCY: Not evaluated. ANY EVIDENCE POPLITEAL CYST: No. OTHER: No other significant finding. IMPRESSION: NO EVIDENCE DVT OR SVT IN EITHER LEG. TECHNICAL DOCUMENTATION: JOB ID: [id number]- All Rights Reserved
[2017-06-16] MEDS ORDERED: ALBUTEROL SULFATE HFA (90 MCG/PUFF) 200 PUFF/8.5 GM MDI IH PRN (10:41)
[2017-06-16] MEDS: ENOXAPARIN SODIUM INJ 40 MG/0.4 ML DISP.SYRIN SUBCUT SCH (11:15)
[2017-06-16] MEDS: DOCUSATE SODIUM 100 MG CAPSULE PO SCH (11:15)
[2017-06-16] MEDS: METOPROLOL TARTRATE 25 MG TABLET PO SCH (11:16)
[2017-06-16] MEDS: PREDNISONE 20 MG TABLET PO SCH (11:16)
[2017-06-16] MEDS: ASPIRIN 81 MG TABLET, ENT COATED PO SCH (11:16)
[2017-06-16] MEDS: BUDESONIDE/FORMOTEROL 160-4.5 MCG 60 PUFF/6 GM MDI IH SCH (11:17)
--- NOTE | 2017-06-16 11:17 | PDOC DISCHARGE SUMMARY ---
General - Admit/Disc Date/PCP Admission Date/Primary Care Provider: 06/12/17 15:33 JULIETTE LOWERY MD Discharge Date: 06/16/17 - Discharge Diagnosis (1) Hypoxemia Is this a current diagnosis for this admission?: Yes (2) CHF (congestive heart failure) Is this a current diagnosis for this admission?: Yes (3) Chronic renal failure Is this a current diagnosis for this admission?: Yes (4) Gastroesophageal reflux disease Is this a current diagnosis for this admission?: Yes (5) Hypertension Is this a current diagnosis for this admission?: Yes (6) Osteoarthritis Is this a current diagnosis for this admission?: Yes (7) Peripheral edema Is this a current diagnosis for this admission?: Yes (8) Pulmonary hypertension Is this a current diagnosis for this admission?: Yes - Additional Information Resuscitation Status: Full Code Discharge Diet: Cardiac Discharge Activity: Activity As Tolerated, Balance Activity w/Rest, Weigh Daily Home Medications: Aspirin [Ecotrin 81 mg EC Tablet] 81 mg PO DAILY tabec 09/26/16 Metoprolol Tartrate [Lopressor 25 mg Tablet] 25 mg PO Q12 #60 tablet 09/26/16 Allopurinol [Zyloprim 100 mg Tablet] 100 mg PO DAILY 06/12/17 Docusate Calcium 240 mg PO DAILY 06/12/17 Hydroxyzine HCl 50 mg PO QHS 06/12/17 Omeprazole 20 mg PO BID 06/12/17 Albuterol Sulfate [Proair HFA Inhalation Aerosol 8.5 gm MDI] 2 puff IH Q4HP PRN #1 [email or web address] 06/16/17 Budesonide/Formoterol Fumarate [Symbicort HFA 160-4.5 mcg Inhaler 6 gm] 2 puff IH Q12 inhaler 06/16/17 Hydrocodone/Acetaminophen [[place] 10-325 mg Tablet] 1 tab PO Q6HP PRN tablet 11/01 Prednisone [Deltasone 20 mg Tablet] 20 mg PO DAILY 7 Days #7 tablet 06/16/17 Torsemide [Demadex 20 mg Tablet] 20 mg PO DAILY 30 Days #30 tablet 06/16/17 History of Present Illness Patient complains of: Worsening oxygen saturations. History of Present Illness: JULIETH BRYAN is a 67 year old male who presented with 2 weeks of worsening shortness of breathe. Patient has history of COPD due to 50 years of smoking. He has since quite as of 3 years ago. Patient states use 2 liters. He noted that he oxygen saturations were in the 70's but normally he sats in the 80's. Patient denies any cough or runny nose. He denies any sick contacts. Patient states he has been doing a lot of work outside and the heat sometimes gets to him. Patient was out on the boat today and when he came in he was unable to catch his breathe. That's when he decided to come to the hospital. In the ED CT per PE was negative, however he was found to be hypoxic. Hospitalist was called to admit and treat patient for hypoxic respiratory failure and COPD exacerbation. Hospital Course Hospital Course: The patient was admitted to the hospital with acute on chronic hypoxic respiratory failure. During this hospitalization we identified that the patient 's hypoxemia has been present for years and likely decades. Looking through the chart it appears that the patient was admitted to the hospital in September 2016. During that hospitalization the patient was demonstrated to have severe pulmonary hypertension by echocardiogram. An echocardiogram was repeated this hospitalization that confirmed severe pulmonary hypertension. It appears that the patient has not had an evaluation for pulmonary hypertension but will require one. He has a long history of tobacco abuse and dependency and likely has some underlying COPD. However, he also worked fitting pipes. He may have been exposed to asbestos. If COPD is not present he will need to be evaluated for interstitial lung disease. My suspicion is that the patient has a shunt probably from an ASD or VSD that has been present since . The echocardiogram did not demonstrate this but if his pulmonary evaluation is negative then I would recommend an echocardiogram with a bubble study to look for a shunt. The patient was seen by our data virtualization consultant, Dr. Marie. The patient agrees to follow-up with Dr. Marie. Since this issue is chronic we will not be able to complete his evaluation during this hospitalization. During the patient's admission in September he did have a ventilation perfusion lung scan. This was unremarkable. I did perform Dopplers this hospitalization which are negative. Therefore, it is unlikely that the patient has chronic venous thromboembolic disease leading to pulmonary hypertension. Also, the patient had a CTA that was negative this hospitalization. In fact, on the chest CT scan it does not look like he has significant emphysema, but, this does not exclude COPD. The patient was placed on prednisone this hospitalization. He does complain of a chronic productive cough. His cough has been present for many years. I did not give him any additional antibiotics this hospitalization. I did continue the patient's Symbicort this hospitalization and started him on albuterol rescue therapy. Patient also was given an Accapella for pulmonary toilet during this hospitalization. Physical Exam Vital Signs: Temp Pulse Resp BP Pulse Ox 97.3 F 92 20 140/84 H 93 06/16/17 07:11 06/16/17 07:11 06/16/17 07:11 06/16/17 07:11 06/16/17 07:11 Intake & Output 06/15/17 06/16/17 06/17/17 06:59 06:59 06:59 Intake Total 1540 2530 Output Total 3 Balance 1540 2527 Weight 124.2 kg 124.8 kg Additional comments: The patient is an extremely pleasant white male. The patient is obese. Patient 's cognition and mentation are completely normal. His facial appearance is normal. His lips and mucous membranes are moist. His dentition is good. Patient has never had wheezing during this hospitalization. He does have a few scattered rhonchi in the posterior lung velez only. His cardiac exam demonstrates a regular rate and rhythm. The patient does have an intermittent murmur which is at times grade 1 and at times grade 2 this is a systolic ejection murmur and it is heard loudest at the mid left sternal border. Patient 's abdomen is protuberant but soft. The abdomen is obese. Bowel sounds are present. The patient does not have guarding or rebound noted and there are no hernias or masses. No hepatosplenomegaly is identified. The patient's lower extremities demonstrate a decrease in edema this hospitalization. The lower extremity edema is now 1+. Changes of venous stasis persist with ulcerations that appear to be chronic. Results Laboratory Results: 06/13/17 05:56 06/16/17 03:25 06/16/17 03:25 Sodium 141.3 Potassium 4.8 Chloride 97 L Carbon Dioxide 36 H Anion Gap 8 BUN 41 H Creatinine 1.52 H Est GFR ( Amer) 55 L Est GFR (Non-Af Amer) 46 L Glucose 115 H Calcium 9.2 Magnesium 2.0 06/13/17 08:55 Sputum Gram Stain - Final 06/13/17 08:55 Sputum Sputum Culture - Final NORMAL MAXINE Impressions: Chest/Abdomen CTA 06/12/17 11:44 IMPRESSION: NORMAL CTA OF THE CHEST. NO PULMONARY EMBOLI. Venous Doppler Study 06/16/17 00:00 IMPRESSION: NO EVIDENCE DVT OR SVT IN EITHER LEG. Qualifiers PATEINT BEING DISCHARGED WITH ANY OF THE FOLLOWING DIAGNOSIS?: No Plan Discharge Plan: The patient will be discharged to home today. He will need to follow-up with his primary care doctor in 1 week. He will need timely follow-up with a scientific specialist. The patient agrees to follow-up with Dr. Marie. Arrangements will be made for a follow-up appointment with Dr. Marie. The patient will be discharged on a short course of prednisone for an additional 7 days of 20 mg. During this hospitalization the patient's creatinine increased slightly and therefore upon discharge the patient's torsemide will be changed from twice a day to once a day. The patient does report that he only uses a torsemide once daily at home anyway. He will be maintained on Symbicort. I have added a rescue inhaler with albuterol.
[2017-06-16 11:46] VITALS: BP 112/64
--- NOTE | 2017-06-16 13:59 | PDOC CONSULTATION ---
Consultation Consult Date: 06/15/17 Attending physician:: HARRY GERARD Consult reason:: Hypoxia/pulmonary hypertension/COPD History of Present Illness Admission Date/PCP: 06/12/17 15:33 JULIETTE LOWERY MD History of Present Illness: 67-year-old feet male who states she has been is short of breath most of his life was told that he had saturations in the 70 at the time of he was sent home with the expectation that he would not survive. He has however been in the [employer] and has worked physically demanding jobs. He admits to coughing approximately 2 tablespoons a day thick phlegm sometimes with yellow streaks he denies hemoptysis his PPD was negative dates unknown for no history of chronic lung disease as a child or adolescent. He admits to exposure to chronic smoke as a child as well as an adult. 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 He admits to snoring restless sleep nocturia 3-4 times per night unrestful sleep and excessive daytime somnolence he has been diagnosed with obstructive sleep apnea as well as restless leg syndrome and admits to intermittent use of his CPAP. He recently underwent an echocardiogram was felt that he had a moderate to severe pulmonary hypertension. Past Medical History Cardiac Medical History: Reports: Congestive Heart Failure, Coronary Artery Disease, Hypertension Pulmonary Medical History: Reports: Chronic Obstructive Pulmonary Disease (COPD) , Respiratory Failure - Hypercapnic obesity hypoventilation syndrome, Sleep Apnea, Other - Pulmonary hypertension Renal/ Medical History: Reports: Chronic Kidney Disease GI Medical History: Reports: Gastroesophageal Reflux Disease, Hiatal Hernia Musculoskeltal Medical History: Reports: Arthritis Psychiatric Medical History: Reports: Tobacco Dependency Past Surgical History Past Surgical History: Reports: Cardiac Catheterization, Coronary Stent, Orthopedic Surgery - Patient has had bilateral shoulder joint replacements., Other - Bilateral shoulder replacement Social History Information Source: Patient, [facility] Lives with: Alone Smoking Status: Former Smoker Cigarettes Packs Per Day: 1 Last Time Smoked: 3 years ago Passive smoke exposure as: Both Frequency of Alcohol Use: None Hx Recreational Drug Use: No Drugs: None Hx Prescription Drug Abuse: No Do you have pets?: No Have you had any respiratory illnesses as a child?: No Have you been exposed to any sick contacts recently?: No Have you travelled outside of [place] in the past 12 months?: No - Advance Directive Resuscitation Status: Full Code Family History Family History: CAD, Other - aneurysm in mother in 50's heart attack in father in 60's Parental Family History Reviewed: Yes Children Family History Reviewed: Yes Sibling(s) Family History Reviewed.: Yes Medication/Allergy Home Medications: Aspirin [Ecotrin 81 mg EC Tablet] 81 mg PO DAILY tabec 09/26/16 Metoprolol Tartrate [Lopressor 25 mg Tablet] 25 mg PO Q12 #60 tablet 09/26/16 Allopurinol [Zyloprim 100 mg Tablet] 100 mg PO DAILY 06/12/17 Docusate Calcium 240 mg PO DAILY 06/12/17 Hydroxyzine HCl 50 mg PO QHS 06/12/17 Omeprazole 20 mg PO BID 06/12/17 Albuterol Sulfate [Proair HFA Inhalation Aerosol 8.5 gm MDI] 2 puff IH Q4HP PRN #1 hfa.aer.ad 06/16/17 Budesonide/Formoterol Fumarate [Symbicort HFA 160-4.5 mcg Inhaler 6 gm] 2 puff IH Q12 inhaler 06/16/17 Hydrocodone/Acetaminophen [[place] 10-325 mg Tablet] 1 tab PO Q6HP PRN tablet 11/01 Prednisone [Deltasone 20 mg Tablet] 20 mg PO DAILY 7 Days #7 tablet 06/16/17 Torsemide [Demadex 20 mg Tablet] 20 mg PO DAILY 30 Days #30 tablet 06/16/17 Allergies/Adverse Reactions: Sulfa (Sulfonamide Antibiotics) Allergy (Verified 06/12/17 11:13) aspirin Adverse Reaction (Mild, Verified 06/12/17 13:46) Review of Systems All systems: reviewed and no additional remarkable complaints except as stated Physical Exam Vital Signs: Temp Pulse Resp BP Pulse Ox 97.6 F 71 22 H 136/83 H 81 L 06/15/17 12:38 06/15/17 14:00 06/15/17 12:38 06/15/17 12:38 06/15/17 12:38 Intake & Output 06/14/17 06/15/17 06/16/17 06:59 06:59 06:59 Intake Total 4560 1540 1440 Output Total 3 Balance 4560 1540 1437 Weight 123.5 kg 124.2 kg General appearance: PRESENT: no acute distress, cooperative, disheveled, morbidly obese, well-developed Head exam: PRESENT: atraumatic, normocephalic Eye exam: PRESENT: conjunctiva pale, EOMI Mouth exam: PRESENT: dry mucosa, neck supple, tongue midline Teeth exam: PRESENT: poor dentation Neck exam: ABSENT: carotid bruit, JVD, lymphadenopathy, thyromegaly Respiratory exam: PRESENT: decreased breath sounds, prolonged expiratory phas, rhonchi, symmetrical, unlabored. ABSENT: rales, retraction, stridor, tachypnea , wheezes Cardiovascular exam: PRESENT: RRR, +S1, +S2, systolic murmur Pulses: PRESENT: normal radial pulses GI/Abdominal exam: PRESENT: normal bowel sounds, soft. ABSENT: distended, guarding, mass, organolmegaly, rebound, tenderness Rectal exam: PRESENT: deferred Extremities exam: PRESENT: +1 edema Neurological exam: PRESENT: alert, awake Psychiatric exam: PRESENT: normal mood Skin exam: PRESENT: dry, warm Results Laboratory Results: 06/13/17 05:56 06/15/17 03:27 06/15/17 03:27 Sodium 141.4 Potassium 4.6 Chloride 97 L Carbon Dioxide 34 H Anion Gap 10 BUN 42 H Creatinine 1.68 H Est GFR ( Amer) 49 L Est GFR (Non-Af Amer) 41 L Glucose 136 H Calcium 8.8 Magnesium 1.9 06/13/17 08:55 Sputum Gram Stain - Final 06/13/17 08:55 Sputum Sputum Culture - Final NORMAL MAXINE Impressions: Chest/Abdomen CTA 06/12/17 11:44 IMPRESSION: NORMAL CTA OF THE CHEST. NO PULMONARY EMBOLI. Assessment & Plan - Diagnosis (1) Obesity hypoventilation syndrome Is this a current diagnosis for this admission?: Yes (2) Obstructive sleep apnea (adult) (pediatric) Is this a current diagnosis for this admission?: Yes Plan: poor compliance (3) CHF (congestive heart failure) Qualifiers: Congestive heart failure type: unspecified congestive heart failure type Congestive heart failure chronicity: acute on chronic Qualified Code(s): I50.9 - Heart failure, unspecified Is this a current diagnosis for this admission?: Yes (4) COPD (chronic obstructive pulmonary disease) Qualifiers: COPD type: COPD with acute exacerbation Qualified Code(s): J44.1 - Chronic obstructive pulmonary disease with (acute) exacerbation Is this a current diagnosis for this admission?: Yes Plan: add proventil (5) Gastroesophageal reflux disease Qualifiers: Esophagitis presence: without esophagitis Qualified Code(s): K21.9 - Gastro -esophageal reflux disease without esophagitis Is this a current diagnosis for this admission?: Yes (6) Hypoxemia Is this a current diagnosis for this admission?: Yes Plan: chronic (7) Pulmonary hypertension Is this a current diagnosis for this admission?: Yes Plan: suspect this is secondary to above - Plan Summary Plan Summary: We will be happy to continue his workup and follow as outpatient
== END 2017-06-16 12:29 | disposition home or self-care (01) | DRG 189 ==
LOC: ER 11:06 → UNDOADMIN 15:12 → EH 15:12 → 5 17:37
PROVIDERS: ADMIT Pediatrics; ATTEND Pediatrics
DX: J96.21 Acute and chronic respiratory failure with hypoxia (principal); J44.1 Chronic obstructive pulmonary disease with (acute) exacerbation; E66.2 Morbid (severe) obesity with alveolar hypoventilation; I13.0 Hypertensive heart and chronic kidney disease with heart failure and stage 1 through stage 4 chronic kidney disease, or unspecified chronic kidney disease; L97.819 Non-pressure chronic ulcer of other part of right lower leg with unspecified severity; L97.829 Non-pressure chronic ulcer of other part of left lower leg with unspecified severity; I50.9 Heart failure, unspecified; N18.3 Chronic kidney disease, stage 3 (moderate); I25.10 Atherosclerotic heart disease of native coronary artery without angina pectoris; K21.9 Gastro-esophageal reflux disease without esophagitis; I27.20 Pulmonary hypertension, unspecified; M19.90 Unspecified osteoarthritis, unspecified site; I83.018 Varicose veins of right lower extremity with ulcer other part of lower leg; I83.028 Varicose veins of left lower extremity with ulcer other part of lower leg; G25.81 Restless legs syndrome; Z60.2 Problems related to living alone; Z96.612 Presence of left artificial shoulder joint; Z96.611 Presence of right artificial shoulder joint; Z88.6 Allergy status to analgesic agent; Z88.2 Allergy status to sulfonamides; Z87.891 Personal history of nicotine dependence; Z68.38 Body mass index [BMI] 38.0-38.9, adult; Z79.82 Long term (current) use of aspirin; Z79.891 Long term (current) use of opiate analgesic; Z99.81 Dependence on supplemental oxygen; Z79.51 Long term (current) use of inhaled steroids; Z79.52 Long term (current) use of systemic steroids; Z79.899 Other long term (current) drug therapy
CPT/HCPCS: 36415; 71275; 80048; 80053; 81001; 82550; 82553; 82803; 82962; 83605; 83735; 83880; 84484; 85025; 85610; 87040; 87070; 87086; 87205; 93005; 93010; 93306; 93970; 94667; 94799; 99285; J1650; J2270; J2930; J3475; J3490; J7512; J7620

== ENCOUNTER 2017-08-23 10:33 | Inpatient (IN) | payer OTHER, MEDICARE ==
[2017-08-23] MEDS ORDERED: ASPIRIN 81 MG TABLET, CHEWABLE PO ONE (11:29)
--- NOTE | 2017-08-23 11:34 | ER Document Report ---
ED Respiratory Problem - General Chief Complaint: Shortness Of Breath Stated Complaint: BREATHING PROBLEMS Time Seen by Provider: 08/23/17 11:01 Notes: 67 years old male with history of CHF COPD presents today with increasing shortness of breath for the last 2 days particularly this morning. He is on oxygen 2 L by nasal cannula at home. He has been having running nose nasal congestion cough coughing up whitish sputum. Denies any chest pain. He was nauseous but did not vomit, had couple of loose bowel movement. Denies any dysuria frequency urgency. TRAVEL OUTSIDE OF THE [place] IN LAST 30 DAYS: No - Related Data Allergies/Adverse Reactions: Sulfa (Sulfonamide Antibiotics) Allergy (Verified 07/12/17 18:43) aspirin Adverse Reaction (Mild, Verified 07/12/17 18:43) Past Medical History - Social History Smoking Status: Former Smoker Family History: CAD, COPD, Other - aneurysm in mother in 50's heart attack in father in 60's - Past Medical History Cardiac Medical History: Reports: Hx Congestive Heart Failure, Hx Coronary Artery Disease, Hx Hypertension, Hx Peripheral Vascular Disease, Hx Heart Murmur Pulmonary Medical History: Reports: Hx COPD, Hx Respiratory Failure - Hypercapnic obesity hypoventilation syndrome, Hx Sleep Apnea Renal/ Medical History: Denies: Hx Peritoneal Dialysis GI Medical History: Reports: Hx Gastroesophageal Reflux Disease, Hx Hiatal Hernia Musculoskeltal Medical History: Reports Hx Arthritis Psychiatric Medical History: Reports: Hx Depression Past Surgical History: Reports: Hx Abdominal Surgery, Hx Cardiac Catheterization , Hx Coronary Stent - x2, Hx Orthopedic Surgery - Patient has had bilateral shoulder joint replacements., Other - Bilateral shoulder replacement - Immunizations Hx Diphtheria, Pertussis, Tetanus Vaccination: No Review of Systems - Review of Systems Notes: REVIEW OF SYSTEMS: CONSTITUTIONAL : Denies fever, chills, or sweats. Denies recent illness. EENT: Denies eye, ear, throat, or mouth pain or symptoms. Denies nasal or sinus congestion or discharge. Denies throat, tongue, or mouth swelling or difficulty swallowing. CARDIOVASCULAR: Denies chest pain. Denies palpitations or racing or irregular heart beat. Denies ankle edema. RESPIRATORY: GASTROINTESTINAL: Denies abdominal pain or distention. Denies nausea, vomiting , or diarrhea. Denies blood in vomitus, stools, or per rectum. Denies black, tarry stools. Denies constipation. GENITOURINARY: Denies difficulty urinating, painful urination, burning, frequency, blood in urine, or discharge. MUSCULOSKELETAL: Denies back or neck pain or stiffness. Denies joint pain or swelling. SKIN: Denies rash, lesions or sores. HEMATOLOGIC : Denies easy bruising or bleeding. LYMPHATIC: Denies swollen, enlarged glands. NEUROLOGICAL: Denies confusion or altered mental status. Denies passing out or loss of consciousness. Denies dizziness or lightheadedness. Denies headache. Denies weakness or paralysis or loss of use of either side. Denies problems with gait or speech. Denies sensory loss, numbness, or tingling. Denies seizures. PSYCHIATRIC: Denies anxiety or stress. Denies depression, suicidal ideation, or homicidal ideation. ALL OTHER SYSTEMS REVIEWED AND NEGATIVE. Dictation was performed using [employer] recognition software PHYSICAL EXAMINATION: GENERAL: Well-appearing, well-nourished and in no acute distress. Morbidly obese not in any acute distress on 4 L oxygen by nasal cannula HEAD: Atraumatic, normocephalic. EYES: Pupils equal round and reactive to light, extraocular movements intact, sclera anicteric, conjunctiva are normal. ENT: Nares patent, oropharynx clear without exudates. Moist mucous membranes. NECK: Normal range of motion, supple without lymphadenopathy LUNGS: Bilaterally decreased breath sounds with the lower lobe rales up to the half the lung field HEART: Regular rate and rhythm without murmurs ABDOMEN: Soft, nontender, nondistended abdomen. No guarding, no rebound. No masses appreciated. Musculoskeletal: 2-3+ pitting edema with venous stasis chronic NEUROLOGICAL: Cranial nerves grossly intact. Normal speech, normal gait. Normal sensory, motor exams PSYCH: Normal mood, normal affect. SKIN: Warm, Dry, normal turgor, no rashes or lesions noted. Physical Exam - Vital signs Vitals: Temp Pulse Resp BP Pulse Ox 99.1 F 115 H 32 H 135/75 H 81 L 08/23/17 10:49 08/23/17 10:49 08/23/17 10:49 08/23/17 10:49 08/23/17 10:49 Course - Vital Signs Vital signs: Temp Pulse Resp BP Pulse Ox 99.1 F 115 H 18 158/83 H 89 L 08/23/17 10:49 08/23/17 10:49 08/23/17 11:11 08/23/17 11:11 08/23/17 11:11 - Laboratory Result Diagrams: 08/23/17 11:15 08/23/17 11:15 Laboratory results interpreted by me: 08/23/17 08/23/17 08/23/17 11:15 11:15 11:15 MCHC 31.5 L RDW 15.6 H PT 15.8 H Carbonic Acid ABG pH ABG pCO2 ABG HCO3 ABG Total CO2 Chloride 96 L Carbon Dioxide 35 H BUN 29 H Creatinine 1.86 H Est GFR ( Amer) 44 L Est GFR (Non-Af Amer) 36 L Glucose 123 H Calcium 8.2 L Direct Bilirubin 0.6 H NT-Pro-B Natriuret Pep 08/23/17 08/23/17 11:15 15:20 MCHC RDW PT Carbonic Acid 2.44 H ABG pH 7.27 L ABG pCO2 81.0 H* ABG HCO3 36.2 H ABG Total CO2 38.7 H Chloride Carbon Dioxide BUN Creatinine Est GFR ( Amer) Est GFR (Non-Af Amer) Glucose Calcium Direct Bilirubin NT-Pro-B Natriuret Pep 2690 H - Diagnostic Test Radiology results interpreted by me: 08/23/17 16:06 Chest x-ray reviewed radiology report reviewed. Indicates cardiomegaly - EKG Interpretation by Me Rate: Tachycardia - Sinus tach at 109 bpm normal axis no acute ST elevation ST depression T-wave inversion noted. Critical Care Note - Critical Care Note Total time excluding time spent on procedures (mins): 30 Comments: Congestive heart failure and COPD exacerbation, CO2 CO2 retention, hypoxia. Monitoring respiration, a monitoring cardiac rhythm monitor. Review of EKG as well as chest x-ray. Discharge - Discharge Clinical Impression: COPD with exacerbation, Hypoxia, Hypercarbia Congestive heart failure Qualifiers: Congestive heart failure type: systolic Congestive heart failure chronicity: acute Qualified Code(s): I50.21 - Acute systolic (congestive) heart failure Chronic lower back pain Qualifiers: Back pain laterality: bilateral Sciatica presence: without sciatica Qualified Code(s): M54.5 - Low back pain; G89.29 - Other chronic pain; G89.29 - Other chronic pain Condition: Serious Disposition: ADMITTED INPATIENT Admitting Provider: Hospitalist Unit Admitted: [facility]
[2017-08-23 11:41] LABS: ABSOLUTE BASOPHILS # (AUTO) 0.1 10^3/uL (0.0-0.2); ABSOLUTE EOSINOPHILS # (AUTO) 0.2 10^3/uL (0.0-0.6); ABSOLUTE LYMPHOCYTES (AUTO) 1.2 10^3/uL (0.5-4.7); ABSOLUTE MONOCYTES (AUTO) 0.9 10^3/uL (0.1-1.4); ABSOLUTE NEUT (AUTO) 4.8 10^3/uL (1.7-8.2); BASOPHILS % (AUTO) 1.4 % (0-2); EOSINOPHILS % (AUTO) 3.3 % (0-6); HEMOGLOBIN 14.5 g/dL (13.5-17.0); HGB HCT DIFFERENCE -2.5; MEAN CORPUSCULAR HEMOGLOBIN 29.4 pg (27.0-33.4); MEAN CORPUSCULAR HGB CONC 31.5 g/dL (32.0-36.0); MEAN CORPUSCULAR VOLUME 93 fl (80-97); MONOCYTES % (AUTO) 11.9 % (3-13); RED BLOOD COUNT 4.92 10^6/uL (4.35-5.55); RED CELL DISTRIBUTION WIDTH 15.6 % (11.5-14.0); SEGMENTED NEUTROPHILS % (AUTO) 66.4 % (42-78); WHITE BLOOD COUNT 7.3 10^3/uL (4.0-10.5)
[2017-08-23 11:48] LABS: PROTHROMBIN TIME 15.8 SEC (11.4-15.4)
[2017-08-23 11:55] LABS: ALANINE AMINOTRANSFERASE 39 U/L (21-72); ALKALINE PHOSPHATASE 90 U/L (38-126); ANION GAP 12 (5-19); ASPARTATE AMINO TRANSFERASE 35 U/L (17-59); BILIRUBIN,DIRECT 0.6 mg/dL (0.0-0.4); BILIRUBIN,TOTAL 0.8 mg/dL (0.2-1.3); BLOOD UREA NITROGEN 29 mg/dL (7-20); CALCIUM 8.2 mg/dL (8.4-10.2); CARBON DIOXIDE 35 mmol/L (22-30); CHLORIDE 96 mmol/L (98-107); CREATINE KINASE 96 U/L (55-170); CREATININE RESULT 1.86 mg/dL (0.52-1.25); GLUCOSE 123 mg/dL (75-110); POTASSIUM 4.4 mmol/L (3.6-5.0); SODIUM 142.9 mmol/L (137-145); TOTAL PROTEIN 6.9 g/dL (6.3-8.2)
[2017-08-23 12:06] LABS: CREATINE KINASE MB 4.41 ng/mL (<4.55)
[2017-08-23 12:10] LABS: TROPONIN I 0.043 ng/mL
--- NOTE | 2017-08-23 12:40 | RADIOLOGY REPORT (SQ) ---
EXAM DESCRIPTION: CHEST SINGLE VIEW COMPLETED DATE/TIME: 08/23/2017 12:22 pm REASON FOR STUDY: Shortness of breath COMPARISON: 07/12/2017. NUMBER OF VIEWS: One view. TECHNIQUE: Single frontal radiographic view of the chest acquired. LIMITATIONS: None. FINDINGS: LUNGS AND PLEURA: No opacities, masses or pneumothorax. No pleural effusion. MEDIASTINUM AND HILAR STRUCTURES: No masses. Contour normal. HEART AND VASCULAR STRUCTURES: Heart enlarged without failure. Normal vasculature. BONES: No acute findings. HARDWARE: Bilateral shoulder prostheses. OTHER: No other significant finding. IMPRESSION: HEART ENLARGED WITHOUT FAILURE. NO SIGNIFICANT CHANGE. TECHNICAL DOCUMENTATION: JOB ID: [id number] [email or web address] All Rights Reserved
[2017-08-23] MEDS ORDERED: ONDANSETRON HCL INJ/PF 4 MG/2 ML SDV IV ONE (13:38)
[2017-08-23] MEDS ORDERED: MORPHINE SULFATE 10 MG/ML INJ IV ONE (13:38)
[2017-08-23] MEDS ORDERED: IPRATROPIUM/ALBUTEROL 0.5-2.5 MG/3 ML AMPUL NEB ONE (14:45)
[2017-08-23 15:47] LABS: ARTERIAL BLOOD BASE EXCESS 5.9 mmol/L; ARTERIAL BLOOD O2 SATURATION 95.6 % (94-98)
[2017-08-23] MEDS ORDERED: ONDANSETRON 4 MG TAB.RAPDIS PO PRN (16:43)
[2017-08-23] MEDS ORDERED: ACETAMINOPHEN 325 MG TABLET PO PRN (16:43)
[2017-08-23] MEDS ORDERED: ONDANSETRON HCL INJ/PF 4 MG/2 ML SDV IV PRN (16:43)
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
[2017-08-23] MEDS: IPRATROPIUM/ALBUTEROL 0.5-2.5 MG/3 ML AMPUL NEB SCH ×2 (20:22→23:25)
[2017-08-23] MEDS ORDERED: METHYLPREDNISOLONE INJ 40 MG/1 ML SDV IV ONE (20:30)
[2017-08-23] MEDS ORDERED: FUROSEMIDE INJ/PF 40 MG/4 ML SDV IV ONE (20:30)
[2017-08-23] MEDS: MORPHINE SULFATE 10 MG/ML INJ IV PRN (21:50)
[2017-08-23] MEDS ORDERED: FAMOTIDINE 20 MG TABLET PO ONE (22:00)
[2017-08-23] MEDS ORDERED: METHYLPREDNISOLONE INJ 40 MG/1 ML SDV IV SCH (22:00)
[2017-08-23] MEDS ORDERED: FUROSEMIDE INJ/PF 40 MG/4 ML SDV IV SCH (22:00)
--- NOTE | 2017-08-23 23:01 | EKG REPORT ---
SEVERITY:- BORDERLINE ECG - SINUS TACHYCARDIA WITH APCs RIGHT AXIS DEVIATION : Confirmed by: Jason Azar 23-Aug-2017 23:01:15
[2017-08-23 23:48] LABS: CREATINE KINASE MB 4.66 ng/mL (<4.55)
[2017-08-23 23:58] LABS: TROPONIN I 0.312 ng/mL
[2017-08-24] MEDS: IPRATROPIUM/ALBUTEROL 0.5-2.5 MG/3 ML AMPUL NEB SCH ×5 (04:27→19:40)
[2017-08-24] MEDS: METHYLPREDNISOLONE INJ 40 MG/1 ML SDV IV SCH ×3 (05:38→21:08)
[2017-08-24 06:01] LABS: CREATINE KINASE MB 7.2 ng/mL (<4.55)
[2017-08-24 06:04] LABS: BLOOD UREA NITROGEN 34 mg/dL (7-20); POTASSIUM 5.2 mmol/L (3.6-5.0)
[2017-08-24 06:17] LABS: TROPONIN I 1.07 ng/mL
[2017-08-24 06:40] LABS: ANION GAP 14 (5-19); CALCIUM 8.2 mg/dL (8.4-10.2); CARBON DIOXIDE 32 mmol/L (22-30); CHLORIDE 96 mmol/L (98-107); CREATINE KINASE 95 U/L (55-170); CREATININE RESULT 2.31 mg/dL (0.52-1.25); GLUCOSE 167 mg/dL (75-110); SODIUM 141.7 mmol/L (137-145)
[2017-08-24 06:45] LABS: MAGNESIUM 1.2 mg/dL (1.6-2.3)
[2017-08-24] MEDS ORDERED: MAGNESIUM SULFATE/D5W 1 GM/100 ML RTUPB IV ONE (07:00)
[2017-08-24] MEDS: ENOXAPARIN SODIUM INJ 40 MG/0.4 ML DISP.SYRIN SUBCUT SCH (09:47)
[2017-08-24] MEDS: FUROSEMIDE INJ/PF 40 MG/4 ML SDV IV SCH ×2 (09:48→21:07)
[2017-08-24] MEDS ORDERED: LEVOFLOXACIN 750 MG/D5W RTU 750 MG/150 ML RTUPB IV SCH (10:00)
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
[2017-08-24] MEDS: MORPHINE SULFATE 10 MG/ML INJ IV PRN ×3 (12:31→21:08)
[2017-08-24] MEDS: SILDENAFIL CITRATE 20 MG TABLET PO SCH ×2 (12:35→16:33)
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
[2017-08-25] MEDS: IPRATROPIUM/ALBUTEROL 0.5-2.5 MG/3 ML AMPUL NEB SCH ×7 (00:07→23:58)
[2017-08-25] MEDS: MORPHINE SULFATE 10 MG/ML INJ IV PRN ×6 (01:06→23:29)
[2017-08-25 04:26] LABS: ABSOLUTE BASOPHILS # (AUTO) 0.1 10^3/uL (0.0-0.2); ABSOLUTE LYMPHOCYTES (AUTO) 1.3 10^3/uL (0.5-4.7); ABSOLUTE MONOCYTES (AUTO) 0.6 10^3/uL (0.1-1.4); ABSOLUTE NEUT (AUTO) 6.6 10^3/uL (1.7-8.2); BASOPHILS % (AUTO) 0.8 % (0-2); HEMOGLOBIN 13.6 g/dL (13.5-17.0); HGB HCT DIFFERENCE -2.2; LYMPHOCYTES % (AUTO) 15.8 % (13-45); MEAN CORPUSCULAR HEMOGLOBIN 29.8 pg (27.0-33.4); MEAN CORPUSCULAR HGB CONC 31.6 g/dL (32.0-36.0); MEAN CORPUSCULAR VOLUME 94 fl (80-97); MONOCYTES % (AUTO) 6.7 % (3-13); RED BLOOD COUNT 4.57 10^6/uL (4.35-5.55); RED CELL DISTRIBUTION WIDTH 15.3 % (11.5-14.0); SEGMENTED NEUTROPHILS % (AUTO) 76.7 % (42-78); WHITE BLOOD COUNT 8.6 10^3/uL (4.0-10.5)
[2017-08-25 04:53] LABS: ANION GAP 15 (5-19); BLOOD UREA NITROGEN 44 mg/dL (7-20); CALCIUM 8.4 mg/dL (8.4-10.2); CARBON DIOXIDE 30 mmol/L (22-30); CHLORIDE 89 mmol/L (98-107); CREATININE RESULT 2.38 mg/dL (0.52-1.25); GLUCOSE 158 mg/dL (75-110); MAGNESIUM 1.4 mg/dL (1.6-2.3); POTASSIUM 5.1 mmol/L (3.6-5.0); SODIUM 134.3 mmol/L (137-145)
[2017-08-25] MEDS: METHYLPREDNISOLONE INJ 40 MG/1 ML SDV IV SCH ×3 (05:21→23:28)
[2017-08-25] MEDS: SILDENAFIL CITRATE 20 MG TABLET PO SCH ×3 (08:52→18:30)
[2017-08-25] MEDS: FUROSEMIDE INJ/PF 40 MG/4 ML SDV IV SCH ×2 (09:48→23:28)
[2017-08-25] MEDS: FAMOTIDINE 20 MG TABLET PO SCH ×2 (09:48→23:29)
[2017-08-25] MEDS: ENOXAPARIN SODIUM INJ 40 MG/0.4 ML DISP.SYRIN SUBCUT SCH (09:49)
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
[2017-08-25] MEDS: NYSTATIN/DEXAMETH/DIPHEN SUSP 120 ML PO SCH ×3 (13:58→23:35)
[2017-08-25] MEDS: TAMSULOSIN HCL 0.4 MG CAP.SR.24H PO SCH (18:30)
--- NOTE | 2017-08-25 23:09 | PROGRESS NOTE E ---
Progress Note NAME: JULIETH BRYAN : 1950 AGE: 67Y DATE: 08/25/2017 ROOM: 305 SUBJECTIVE: The patient states he feels better. He still has some orthopnea. His leg edema is much better. He denies any chest pain or discomfort. There is no recurrence of atrial fibrillation. There are no TIA or CVA symptoms. He still has cough and occasional wheezing. He still is producing some scanty sputum which is grayish-brown in color. There is no pleuritic chest pain. There is no hemoptysis. OBJECTIVE: GENERAL: On examination, the patient is moderately obese but well groomed. He does not seem to be in any major respiratory distress at present. VITAL SIGNS: His temperature is 97.6 degrees Fahrenheit orally, pulse is 89 beats per minute, blood pressure 121/60, respirations are 18 per minute, O2 saturations are 91% on 5 L nasal cannula. HEAD: Atraumatic, normocephalic. EYES: Pupils are equal, round, regular, and reactive to light and accommodation. Extraocular movements are normal. There is no conjunctival pallor. There is no scleral icterus. EARS, NOSE, THROAT: Negative. NECK: Supple. There is no JVD. Carotids are equal. There is no bruit. There is no lymphadenopathy. There is no goiter. Trachea central. LUNGS: Diminished air entry, prolonged expiration with scattered rhonchi and occasional wheezing. There are no rales of CHF. HEART: S1 and S2 are heard. There is no S3 gallop. There is no S4 gallop. S1 is of normal intensity. The monitor shows that the patient is in sinus rhythm. There is a systolic murmur in the left sternal border on the apex. There is no rub. ABDOMEN: Soft, nontender. There is no hepatosplenomegaly. Bowel sounds are well heard. EXTREMITIES: Femorals are diminished. There are no femoral bruits. Leg pulses are diminished. He has mild pedal edema which is much less than yesterday, bilaterally. There is no cellulitis. There is no cyanosis or clubbing. There is no calf tenderness. CENTRAL NERVOUS SYSTEM: The patient is conscious, awake, alert, oriented x3 with no focal deficit. PSYCHIATRIC: The patient's judgment and insight are intact. His affect is normal. INTAKE AND OUTPUT: The patient's 24-hour intake is 2123 mL, output 1450 mL. LABORATORY DATA: White count 8600; hemoglobin 13.6; hematocrit 43; platelet count is 215,000. Sodium 134.3, potassium 5.1, chloride 89, CO2 30. BUN 44, creatinine 2.38, GFR is reduced at 27 mL which is chronic kidney disease stage IV. Glucose 158, magnesium is low at 1.4, calcium 8.4. Troponin I was 1.070 yesterday. We will check the troponin I tomorrow. IMPRESSION: 1. Acute on chronic respiratory failure with hypoxemia and hypercapnia. Continue respiratory treatments. Continue antibiotics. 2. Acute on chronic right ventricular systolic heart failure secondary to severe pulmonary hypertension but the recent echo, which is not a very good study, does not show significant pulmonary hypertension. The patient's blood pressure is low. We will try to start the patient on some hydralazine. 3. COPD with exacerbation. Continue breathing treatments. Continue steroids and continue IV antibiotics. 4. Obstructive sleep apnea, intolerant to any form of CPAP. 5. Severe pulmonary hypertension but the patient's recent echo shows normal LV ejection fraction. The patient has mild aortic stenosis and also with a peak gradient of 35, mean gradient of 15 mmHg, with a trace amount of aortic regurgitation. There is a trace to mild amount of tricuspid regurgitation but pulmonary hypertension is right ventricular systolic pressure greater than 60. Hence we will continue the patient on Sildenafil. Seems to be helping the patient. 6. Chronic low back pain. The patient is on morphine. 7. Acute on chronic renal failure. The baseline is stage III. At present, it is stage IV. 8. Hypertension. Blood pressure on the lower side. 9. CAD, history of stent. No anginal symptoms. 10. History of paroxysmal atrial fibrillation with no recurrence. 11. GERD. 12. Obesity. 13. Osteoarthritis. 14. *------* induced near syncope. No further such symptoms. RECOMMENDATION: 1. As mentioned earlier, continue antibiotics. 2. Continue respiratory treatments. 3. We will try the patient on a smaller dose of hydralazine at 5 mg p.o. q. 8 hours. Would hesitate to try the patient on MARGARITA inhibitor in view of the patient's renal function. 4. Continue Sildenafil. The patient has been warned about side effects of nitrates with Sildenafil and hence, the patient needs to avoid nitrates. TIME SPENT: Thirty-five minutes spent on this patient with more than 50% of the time spent on direct patient care. The medications have been reviewed and also adjusted. The medical decision making is of a highly complex nature in view of the patient's multiple medical problems and his COPD with exacerbation. Discussed with the hospitalist taking care of the patient. We will follow with you. DICTATING PHYSICIAN: CHIO DUARTE M.D. [id number] JAIRON#: [id number] ID: [id number] JOB#: [id number] ACCT: [id number] cc: >
[2017-08-25] MEDS: HYDRALAZINE HCL 10 MG TABLET PO SCH (23:29)
[2017-08-26] MEDS: IPRATROPIUM/ALBUTEROL 0.5-2.5 MG/3 ML AMPUL NEB SCH ×4 (03:39→15:32)
[2017-08-26 04:42] LABS: ABSOLUTE MONOCYTES (AUTO) 0.5 10^3/uL (0.1-1.4); ABSOLUTE NEUT (AUTO) 6.4 10^3/uL (1.7-8.2); BASOPHILS % (AUTO) 0.4 % (0-2); HEMOGLOBIN 14.3 g/dL (13.5-17.0); HGB HCT DIFFERENCE -2.1; LYMPHOCYTES % (AUTO) 12.8 % (13-45); MEAN CORPUSCULAR HEMOGLOBIN 29.8 pg (27.0-33.4); MEAN CORPUSCULAR HGB CONC 31.9 g/dL (32.0-36.0); MEAN CORPUSCULAR VOLUME 93 fl (80-97); MONOCYTES % (AUTO) 6.6 % (3-13); RED BLOOD COUNT 4.81 10^6/uL (4.35-5.55); RED CELL DISTRIBUTION WIDTH 15.9 % (11.5-14.0); SEGMENTED NEUTROPHILS % (AUTO) 80.2 % (42-78)
[2017-08-26 05:02] LABS: ANION GAP 14 (5-19); BLOOD UREA NITROGEN 59 mg/dL (7-20); CARBON DIOXIDE 32 mmol/L (22-30); CHLORIDE 90 mmol/L (98-107); CREATININE RESULT 2.19 mg/dL (0.52-1.25); GLUCOSE 134 mg/dL (75-110); POTASSIUM 5.7 mmol/L (3.6-5.0); SODIUM 135.9 mmol/L (137-145)
[2017-08-26] MEDS: METHYLPREDNISOLONE INJ 40 MG/1 ML SDV IV SCH ×3 (05:56→21:29)
[2017-08-26] MEDS: MORPHINE SULFATE 10 MG/ML INJ IV PRN ×4 (05:56→21:29)
[2017-08-26] MEDS: HYDRALAZINE HCL 10 MG TABLET PO SCH ×3 (05:57→21:32)
[2017-08-26] MEDS: SILDENAFIL CITRATE 20 MG TABLET PO SCH ×3 (08:59→17:45)
[2017-08-26] MEDS: FAMOTIDINE 20 MG TABLET PO SCH ×2 (09:00→21:32)
[2017-08-26] MEDS: LEVOFLOXACIN 750 MG/D5W RTU 750 MG/150 ML RTUPB IV SCH (09:03)
[2017-08-26] MEDS: FUROSEMIDE INJ/PF 40 MG/4 ML SDV IV SCH ×2 (09:03→21:29)
[2017-08-26] MEDS: NYSTATIN/DEXAMETH/DIPHEN SUSP 120 ML PO SCH ×4 (09:04→21:33)
[2017-08-26] MEDS: ENOXAPARIN SODIUM INJ 40 MG/0.4 ML DISP.SYRIN SUBCUT SCH (09:05)
[2017-08-26] MEDS ORDERED: SODIUM POLYSTYRENE SULFONATE 15 GM/60 ML PO ONE (13:55)
--- NOTE | 2017-08-26 14:24 | PROGRESS NOTE E ---
Progress Note NAME: JULIETH BRYAN : 1950 AGE: 67Y DATE: 08/25/2017 ROOM: 305 SUBJECTIVE: The patient states that he feels much better. He states that he is able to lie down flat. He still has a cough, but mostly productive of some white sputum. There is intermittent wheezing present. He has no PND. There is no chest pain or discomfort. The patient remains in sinus rhythm. He has very minimal/mild pedal edema. OBJECTIVE: GENERAL: On examination, the patient is moderately obese, in no acute distress. VITAL SIGNS: His afebrile with a temperature of 97.5 degrees Fahrenheit. Pulse is 72 beats per minute. Blood pressure is 126/78. Respirations 16 per minute. O2 saturations are 94% on 5 liters nasal cannula. HEAD: Normocephalic/atraumatic. EYES: Pupils are equal, round, regular, reactive to light and accommodation. Extraocular movements are normal. There is no conjunctival pallor. There is no scleral icterus. EARS, NOSE, AND THROAT: Negative. NECK: Supple. There is no JVD. Carotids are equal. There is no bruit. There is no lymphadenopathy. There is no goiter. Trachea is central. LUNGS: Show diminished air entry, prolonged expiration with scattered rhonchi and occasionally wheezing. There are no rales of CHF. HEART: S1, S2 is heard. There is no S3 gallop. There is no S4 gallop. S1 is of normal intensity. The monitor shows the patient is in sinus rhythm. There is a systolic murmur in the left sternal border and the apex. There is no rub. ABDOMEN: Soft, nontender. There is no hepatosplenomegaly. Bowel sounds are well heard. EXTREMITIES: Femorals are diminished. There is no femoral bruit. Leg pulses are diminished. He has very mild pedal edema which is much less than yesterday bilaterally. There is no cellulitis. There is no cyanosis or clubbing. There is no calf tenderness. CENTRAL NERVOUS SYSTEM: The patient is conscious, awake, alert, oriented x3 with no focal deficit. PSYCHIATRIC: The patient's judgement and insight are intact. His affect is normal. INTAKE AND OUTPUT: The patient's 24-hour intake is 1225 mL, output is 1775 mL. DIAGNOSTIC DATA: The patient's sodium is 135.9, potassium is increased to 5.7, chloride is 90, CO2 is 32, the patient's BUN is 59, creatinine is 2.19, GFR is reduced to 30 mL which is chronic kidney disease stage 3, glucose is 134, calcium is 9.0. The patient's white count is 8,000, hemoglobin is 14.3, hematocrit is 45.0, and his platelet count is 219,000. IMPRESSION: 1. ACUTE ON CHRONIC RESPIRATORY FAILURE WITH A HYPOXEMIA AND HYPERCAPNIA, IMPROVING BUT CONTINUES TO HAVE WHEEZING AND RHONCHI. CONTINUE RESPIRATORY TREATMENTS. CONTINUE ANTIBIOTICS. 2. 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 THE PATIENT IS ON SILDENAFIL AND ALSO HYDRALAZINE, SEEMS TO BE TOLERATING THIS WELL AND SEEMS TO BE FEELING LESS SHORT OF BREATH. 3. HYPERKALEMIA. 4. CHRONIC KIDNEY DISEASE, ACUTE ON CHRONIC, AT PRESENT BACK TO BASELINE STAGE 3 WITH A GFR OF 30. 5. COPD WITH EXACERBATION. CONTINUE BREATHING TREATMENTS. CONTINUE STEROIDS AND ANTIBIOTICS. 6. OBSTRUCTIVE SLEEP APNEA, INTOLERANT TO ANY FORM OF CPAP. THIS IS MOST LIKELY THE CAUSE OF THE PATIENT'S SEVERE PULMONARY HYPERTENSION ALONG WITH HIS COPD. 7. SEVERE PULMONARY HYPERTENSION. 8. MILD AORTIC STENOSIS WITH TRACE AORTIC REGURGITATION. 9. CHRONIC LOW BACK PAIN. THE PATIENT IS ON MORPHINE AND REQUIRES THIS PERIODICALLY. 10. HYPERTENSION. BLOOD PRESSURE IS WELL CONTROLLED. THE PATIENT IS TOLERATING HYDRALAZINE. 11. CAD, HISTORY OF STENT; NO ANGINAL SYMPTOMS. 12. HISTORY OF PAROXYSMAL ATRIAL FIBRILLATION WITH NO RECURRENCE. 13. GERD. 14. OBESITY. 15. OSTEOARTHRITIS. 16. COUGH-INDUCED NEAR SYNCOPE. NO FURTHER SUCH SYMPTOMS. RECOMMENDATIONS: Would treat the patient with Kayexalate. The patient is not on any medications that can cause the potassium to go up. Continue respiratory treatments and antibiotics. The patient will not use CPAP or BiPAP due to claustrophobia. Continue hydralazine and sildenafil. I will follow with you. Time spent is 30 minutes with 50% of the time spent on direct patient care. His medications have been reviewed. Later, we will increase his hydralazine as tolerated. Will give the patient 30 grams of Kayexalate to keep the patient's potassium down. Discussed with the other care giving providers on the case. Note, medical decision making is of high complexity, will follow with you. DICTATING PHYSICIAN: CHIO DUARTE M.D. [id number] PHY#: [id number] ID: [id number] JOB#: [id number] ACCT: [id number] cc:CHIO DUARTE M.D. >
--- NOTE | 2017-08-26 17:40 | PDOC PROGRESS REPORT ---
Subjective Progress Note for:: 08/26/17 Subjective:: This is a follow-up visit for COPD exacerbation. Patient states that he is breathing better today. Denies any chest pain. Reason For Visit: CHF,COPD,BRONCHITIS Physical Exam Vital Signs: Temp Pulse Resp BP Pulse Ox 97.4 F 86 18 137/72 H 87 L 08/26/17 15:41 08/26/17 15:41 08/26/17 15:41 08/26/17 15:41 08/26/17 15:41 Intake & Output 08/25/17 08/26/17 08/27/17 06:59 06:59 06:59 Intake Total 2123 1225 Output Total 1450 1775 Balance 673 -550 Weight 121.2 kg 121.9 kg GENERAL: This is a well-developed, well-nourished obese white male sitting on the side of his bed having lunch. He is in no acute distress. HEART: [Regular rate and rhythm. 2 out of 6 urmurs. No rubs or gallops.] LUNGS: [Diminished at the bases bilaterally with equal rise and fall of the chest. Patient only has wheezing when he forces is an end expiratory wheeze] ABDOMEN: [Soft, nontender, nondistended with normoactive bowel sounds] EXTREMETIES: [No clubbing, cyanosis. 1+ nonpitting edema. 2+ peripheral pulses bilaterally.] NEURO: [Awake, alert and oriented 3. Cranial nerves II through XII are grossly intact.] Results Laboratory Results: 08/26/17 04:02 08/26/17 04:02 08/26/17 08/26/17 04:02 04:02 WBC 8.0 RBC 4.81 Hgb 14.3 Hct 45.0 MCV 93 MCH 29.8 MCHC 31.9 L RDW 15.9 H Plt Count 219 Seg Neutrophils % 80.2 H Lymphocytes % 12.8 L Monocytes % 6.6 Eosinophils % 0.0 Basophils % 0.4 Absolute Neutrophils 6.4 Absolute Lymphocytes 1.0 Absolute Monocytes 0.5 Absolute Eosinophils 0.0 Absolute Basophils 0.0 Sodium 135.9 L Potassium 5.7 H Chloride 90 L Carbon Dioxide 32 H Anion Gap 14 BUN 59 H Creatinine 2.19 H Est GFR ( Amer) 36 L Est GFR (Non-Af Amer) 30 L Glucose 134 H Calcium 9.0 08/23/17 08/23/17 08/24/17 23:13 23:13 05:21 Creatine Kinase 98 95 CK-MB (CK-2) 4.66 H Troponin I 0.312 08/24/17 08/26/17 05:21 14:19 Creatine Kinase CK-MB (CK-2) 7.20 H Troponin I 1.070 0.412 Impressions: Chest X-Ray 08/23/17 11:30 IMPRESSION: HEART ENLARGED WITHOUT FAILURE. NO SIGNIFICANT CHANGE. Assessment & Plan - Diagnosis (1) Acute on chronic respiratory failure with hypoxemia Is this a current diagnosis for this admission?: Yes Plan: The patient has underlying COPD and ANILA. Continue management with oxygen therapy. The patient refuses BiPAP. Continue with nebulizer treatments. The patient feels pretty shaky. Will change to Xopenex. (2) CHF (congestive heart failure) Qualifiers: Congestive heart failure type: systolic Congestive heart failure chronicity : acute Qualified Code(s): I50.21 - Acute systolic (congestive) heart failure Is this a current diagnosis for this admission?: Yes Plan: Patient is currently being diuresed with 40 mg IV every 12 hours. Patient was positive with his fluid intake yesterday. Will institute a fluid restriction. Continue to monitor urinary output. Patient tells me that he feels his urinary output has been slow. (3) COPD with exacerbation Is this a current diagnosis for this admission?: Yes Plan: Continue oxygen therapy, antibiotics and steroids. Add Xopenex, Spiriva, Symbicort (4) Gastroesophageal reflux disease Qualifiers: Is this a current diagnosis for this admission?: Yes (5) Obesity Qualifiers: Obesity type: due to excess calories Body mass index: BMI 37.0-37.9 Is this a current diagnosis for this admission?: Yes Plan: Weight loss through dietary changes and exercise as tolerated. (6) Obstructive sleep apnea (adult) (pediatric) Is this a current diagnosis for this admission?: Yes Plan: Patient has not worn his CPAP in over 10 years. He refused to wear that and he refuses to wear it now. (7) Pulmonary hypertension Is this a current diagnosis for this admission?: Yes Plan: Continue Viagra. (8) Non-STEMI (non-ST elevated myocardial infarction) Is this a current diagnosis for this admission?: Yes Plan: Cardiology following. [place] his underlying respiratory distress. - Time Time Spent with patient: 25-34 minutes
[2017-08-26] MEDS: TAMSULOSIN HCL 0.4 MG CAP.SR.24H PO SCH (17:45)
[2017-08-26] MEDS: LEVALBUTEROL HCL NEB 1.25 MG/3 ML AMPUL NEB SCH ×2 (19:35→23:44)
[2017-08-26 20:39] LABS: ANION GAP 13 (5-19); BLOOD UREA NITROGEN 61 mg/dL (7-20); CALCIUM 9.5 mg/dL (8.4-10.2); CARBON DIOXIDE 34 mmol/L (22-30); CHLORIDE 91 mmol/L (98-107); CREATININE RESULT 2.07 mg/dL (0.52-1.25); GLUCOSE 133 mg/dL (75-110); POTASSIUM 5.8 mmol/L (3.6-5.0); SODIUM 137.7 mmol/L (137-145)
[2017-08-26] MEDS: FLUTICASONE NASAL SPRAY 50 MCG/SPRY 120 SPRAY/16 GM NASL SCH (21:29)
[2017-08-26] MEDS: BUDESONIDE/FORMOTEROL 160-4.5 MCG 60 PUFF/6 GM MDI IH SCH (21:30)
[2017-08-26] MEDS ORDERED: [UNRECOGNIZED DRUG - REMARK] NASL SCH (22:00)
[2017-08-27] MEDS: LEVALBUTEROL HCL NEB 1.25 MG/3 ML AMPUL NEB SCH ×5 (04:06→20:33)
[2017-08-27 05:03] LABS: ABSOLUTE LYMPHOCYTES (AUTO) 0.8 10^3/uL (0.5-4.7); ABSOLUTE MONOCYTES (AUTO) 0.6 10^3/uL (0.1-1.4); ABSOLUTE NEUT (AUTO) 8.3 10^3/uL (1.7-8.2); BASOPHILS % (AUTO) 0.2 % (0-2); HEMATOCRIT 42.7 % (37.9-51.0); HEMOGLOBIN 13.9 g/dL (13.5-17.0); LYMPHOCYTES % (AUTO) 8.1 % (13-45); MEAN CORPUSCULAR HEMOGLOBIN 30.4 pg (27.0-33.4); MEAN CORPUSCULAR HGB CONC 32.6 g/dL (32.0-36.0); MEAN CORPUSCULAR VOLUME 93 fl (80-97); MONOCYTES % (AUTO) 6.5 % (3-13); RED BLOOD COUNT 4.58 10^6/uL (4.35-5.55); RED CELL DISTRIBUTION WIDTH 15.4 % (11.5-14.0); SEGMENTED NEUTROPHILS % (AUTO) 85.2 % (42-78); WHITE BLOOD COUNT 9.8 10^3/uL (4.0-10.5)
[2017-08-27] MEDS: HYDRALAZINE HCL 10 MG TABLET PO SCH ×3 (05:04→21:43)
[2017-08-27 05:25] LABS: ANION GAP 11 (5-19); BLOOD UREA NITROGEN 60 mg/dL (7-20); CALCIUM 8.9 mg/dL (8.4-10.2); CARBON DIOXIDE 35 mmol/L (22-30); CHLORIDE 92 mmol/L (98-107); CREATININE RESULT 1.93 mg/dL (0.52-1.25); GLUCOSE 132 mg/dL (75-110); MAGNESIUM 1.8 mg/dL (1.6-2.3); POTASSIUM 5.2 mmol/L (3.6-5.0); SODIUM 138.3 mmol/L (137-145)
[2017-08-27] MEDS: BUDESONIDE/FORMOTEROL 160-4.5 MCG 60 PUFF/6 GM MDI IH SCH ×2 (09:27→21:44)
[2017-08-27] MEDS: FAMOTIDINE 20 MG TABLET PO SCH ×2 (09:27→21:41)
[2017-08-27] MEDS: SILDENAFIL CITRATE 20 MG TABLET PO SCH ×3 (09:27→17:35)
[2017-08-27] MEDS: FUROSEMIDE INJ/PF 40 MG/4 ML SDV IV SCH ×2 (09:28→21:43)
[2017-08-27] MEDS: NYSTATIN CREAM 15 GM TP SCH ×3 (09:28→17:35)
[2017-08-27] MEDS: FLUTICASONE NASAL SPRAY 50 MCG/SPRY 120 SPRAY/16 GM NASL SCH ×2 (09:28→21:44)
[2017-08-27] MEDS: METHYLPREDNISOLONE INJ 40 MG/1 ML SDV IV SCH ×2 (09:28→21:43)
[2017-08-27] MEDS: ENOXAPARIN SODIUM INJ 40 MG/0.4 ML DISP.SYRIN SUBCUT SCH (09:29)
[2017-08-27] MEDS: NYSTATIN/DEXAMETH/DIPHEN SUSP 120 ML PO SCH ×4 (09:29→21:48)
[2017-08-27] MEDS: MORPHINE SULFATE 10 MG/ML INJ IV PRN ×3 (09:37→20:41)
--- NOTE | 2017-08-27 17:28 | PDOC PROGRESS REPORT ---
Subjective Progress Note for:: 08/27/17 Subjective:: This is a follow-up visit for COPD exacerbation. Patient states that he is breathing better today. Denies any chest pain. He states he ambulated today and was not terribly short of breath. Reason For Visit: CHF,COPD,BRONCHITIS Physical Exam Vital Signs: Temp Pulse Resp BP Pulse Ox 98.0 F 80 20 130/88 H 92 08/27/17 11:38 08/27/17 12:16 08/27/17 12:16 08/27/17 11:38 08/27/17 12:16 Intake & Output 08/26/17 08/27/17 08/28/17 06:59 06:59 06:59 Intake Total 1226 7536 Output Total 8757 0156 Balance -550 -3506 Weight 121.9 kg 118.1 kg GENERAL: This is a well-developed, well-nourished obese white male sitting on the side of his bed having lunch. He is in no acute distress. HEART: Regular rate and rhythm. 2 out of 6 murmurs. No rubs or gallops. LUNGS: Diminished at the bases bilaterally with equal rise and fall of the chest. ABDOMEN: Soft, nontender, nondistended with normoactive bowel sounds EXTREMETIES: No clubbing, cyanosis. 1+ nonpitting edema. 2+ peripheral pulses bilaterally. NEURO: Awake, alert and oriented 3. Cranial nerves II through XII are grossly intact. Results Laboratory Results: 08/27/17 04:07 08/27/17 04:07 08/26/17 08/27/17 08/27/17 20:07 04:07 04:07 WBC 9.8 RBC 4.58 Hgb 13.9 Hct 42.7 MCV 93 MCH 30.4 MCHC 32.6 RDW 15.4 H Plt Count 215 Seg Neutrophils % 85.2 H Lymphocytes % 8.1 L Monocytes % 6.5 Eosinophils % 0.0 Basophils % 0.2 Absolute Neutrophils 8.3 H Absolute Lymphocytes 0.8 Absolute Monocytes 0.6 Absolute Eosinophils 0.0 Absolute Basophils 0.0 Sodium 137.7 138.3 Potassium 5.8 H 5.2 H Chloride 91 L 92 L Carbon Dioxide 34 H 35 H Anion Gap 13 11 BUN 61 H 60 H Creatinine 2.07 H 1.93 H Est GFR ( Amer) 39 L 42 L Est GFR (Non-Af Amer) 32 L 35 L Glucose 133 H 132 H Calcium 9.5 8.9 Magnesium 1.8 08/23/17 08/23/17 08/24/17 23:13 23:13 05:21 Creatine Kinase 98 95 CK-MB (CK-2) 4.66 H Troponin I 0.312 08/24/17 08/26/17 05:21 14:19 Creatine Kinase CK-MB (CK-2) 7.20 H Troponin I 1.070 0.412 Impressions: Chest X-Ray 08/23/17 11:30 IMPRESSION: HEART ENLARGED WITHOUT FAILURE. NO SIGNIFICANT CHANGE. Assessment & Plan - Diagnosis (1) Acute on chronic respiratory failure with hypoxemia Is this a current diagnosis for this admission?: Yes Plan: The patient has underlying COPD and ANILA. Continue management with oxygen therapy. The patient refuses BiPAP. Continue with nebulizer treatments. The patient feels a lot less shaky today. Prefers the Xopenex. Will give a prescription at discharge. (2) CHF (congestive heart failure) Qualifiers: Congestive heart failure type: systolic Congestive heart failure chronicity : acute Qualified Code(s): I50.21 - Acute systolic (congestive) heart failure Is this a current diagnosis for this admission?: Yes Plan: Patient is currently being diuresed with 40 mg IV every 12 hours. Patient has had a net -2.7 L out. His lower extremities look much better. (3) COPD with exacerbation Is this a current diagnosis for this admission?: Yes Plan: Continue oxygen therapy, antibiotics and steroids. Add Xopenex, Spiriva, Symbicort (4) Gastroesophageal reflux disease Qualifiers: Is this a current diagnosis for this admission?: Yes (5) Obesity Qualifiers: Obesity type: due to excess calories Body mass index: BMI 37.0-37.9 Is this a current diagnosis for this admission?: Yes Plan: Weight loss through dietary changes and exercise as tolerated. (6) Obstructive sleep apnea (adult) (pediatric) Is this a current diagnosis for this admission?: Yes Plan: Patient has not worn his CPAP in over 10 years. He refused to wear that and he refuses to wear it now. (7) Pulmonary hypertension Is this a current diagnosis for this admission?: Yes Plan: Continue Viagra. (8) Non-STEMI (non-ST elevated myocardial infarction) Is this a current diagnosis for this admission?: Yes Plan: Cardiology signed off. [place] his underlying respiratory distress. Cardiology would like to see him in follow-up as an outpatient - Time Time Spent with patient: 15-24 minutes
[2017-08-27] MEDS ORDERED: HYDROCODONE/ACETAMINOPHEN 10-325 MG TABLET PO PRN (17:31)
[2017-08-27] MEDS: TAMSULOSIN HCL 0.4 MG CAP.SR.24H PO SCH (17:36)
--- NOTE | 2017-08-27 22:38 | PROGRESS NOTE E ---
Progress Note NAME: JULIETH BRYAN : 1950 AGE: 67Y DATE: 08/27/2017 ROOM: 305 SUBJECTIVE: The patient states that he feels much better. He denies any cough or sputum production. There is no wheezing. There is no PND or orthopnea. His leg edema is much improved. The patient remains in sinus rhythm. There is no recurrence of atrial fibrillation. OBJECTIVE: GENERAL: On examination, the patient is moderately obese, in no acute distress. VITAL SIGNS: He is afebrile, with a temperature of 98 degrees Fahrenheit orally. Pulse is 82 beats per minute, blood pressure 130/88, respirations 18 per minute. O2 sats are 92% on 4 liters nasal cannula. HEENT: Head is atraumatic, normocephalic. Eyes: Pupils are equal, round, regular, reactive to light and accommodation. Extraocular movements are normal. There is no conjunctival pallor. There is no scleral icterus. ENT is negative. NECK: Supple. There is no JVD. Carotids have no bruit. There is no lymphadenopathy. There is no goiter. Trachea is central. LUNGS: Show diminished air entry, prolonged expiration, with very rare rhonchi. There is no wheezing or rales. HEART: S1, S2 are heard. There is no S3 gallop. There is no S4 gallop. S1 is of normal intensity. Monitor shows the patient is in sinus rhythm. There is a systolic murmur at the left sternal border, at the apex. There is no rub. ABDOMEN: Soft, nontender. There is no hepatosplenomegaly. Bowel sounds are well-heard. EXTREMITIES: Femorals are diminished. There are no femoral bruits. Leg pulses are diminished. There is trace pedal edema. There is no cellulitis. There is no cyanosis or clubbing. There is no calf tenderness. CENTRAL NERVOUS SYSTEM: The patient is conscious, awake, alert, oriented x3, with no focal deficits. PSYCHIATRIC: The patient's judgment and insight are intact. His affect is normal. The patient's 24-hour intake is 1915 mL; output is 4625 mL. LABORATORY DATA: The patient's white count is 9800, hemoglobin is 13.9, hematocrit is 42.7, platelet count is 215,000. The patient's sodium is 138.8, potassium 5.2, chloride 92, CO2 is 35. The patient's BUN is 60, creatinine is 1.93. GFR has come up to 35, and the patient's glucose is 132. Calcium is 8.9 and his magnesium is 1.8. The patient's Troponin I last evening was 0.412 and now it has trended down to 0.345. ASSESSMENT: 1. ACUTE ON CHRONIC RESPIRATORY FAILURE WITH HYPOXIA AND HYPERCAPNIA, MUCH IMPROVED. Patient back to baseline. Continue respiratory treatments. Continue antibiotics. Continue steroids. 2. ACUTE ON CHRONIC RIGHT VENTRICULAR SYSTOLIC HEART FAILURE, SECONDARY TO SEVERE PULMONARY HYPERTENSION. The patient is much improved on sildenafil and also hydralazine. Seems to be tolerating this well and seems to be getting less short of breath. 3. HYPERKALEMIA. Patient is not on any medication that would cause the potassium to go up. 4. CHRONIC KIDNEY DISEASE, ACUTE ON CHRONIC, AT PRESENT BACK TO BASELINE, STAGE III, WITH A GFR OF 35. 5. CHRONIC OBSTRUCTIVE PULMONARY DISEASE WITH EXACERBATION, AT PRESENT BACK TO BASELINE. 6. OBSTRUCTIVE SLEEP APNEA. Intolerant to any form of continuous positive airway pressure. This is most likely the cause of the patient's significant pulmonary hypertension, along with his chronic obstructive pulmonary disease. 7. SEVERE PULMONARY HYPERTENSION. Patient is on sildenafil. 8. MILD AORTIC STENOSIS, WITH TRACE AORTIC REGURGITATION. 9. CHRONIC LOW BACK PAIN. The patient is on morphine and requires this periodically. 10. HYPERTENSION. Blood pressure well-controlled. The patient is tolerating hydralazine. 11. CORONARY ARTERY DISEASE, WITH HISTORY OF STENT IN ONE ARTERY, WHICH IS NOT KNOWN, AND NO ANGINAL SYMPTOMS. 12. HISTORY OF PAROXYSMAL ATRIAL FIBRILLATION WITH NO RECURRENCE. 13. GASTROESOPHAGEAL REFLUX DISEASE. 14. OBESITY. 15. OSTEOARTHRITIS. 16. COUGH-INDUCED NEAR-SYNCOPE. No further such symptoms. PLAN: 1. Continue sildenafil. 2. Continue respiratory treatments. 3. Continue hydralazine. 4. Continue antibiotics. 5. Continue steroids and taper the steroids to off. 6. Continue Flomax for enlarged prostate symptoms, which have been controlled with Flomax. Note, 30 minutes spent on this patient, with more than 50% of the time spent on direct patient care. His medications have been reviewed and the case discussed with the other care-giving providers on the case. As mentioned earlier, the patient is a DNR. He states he has no one to name as his surrogate healthcare decision-maker. The patient is stable. Will sign off. Will follow the patient as an outpatient, as the patient is asked to follow up with me. Note, medical decision-making was of moderate complexity. DICTATING PHYSICIAN: CHIO DUARTE M.D. [id number] PHY#: [id number] ID: [id number] JOB#: [id number] ACCT: [id number] cc:CHIO DUARTE M.D. >
[2017-08-28] MEDS: LEVALBUTEROL HCL NEB 1.25 MG/3 ML AMPUL NEB SCH ×4 (00:15→11:35)
[2017-08-28 05:05] LABS: ABSOLUTE LYMPHOCYTES (AUTO) 0.9 10^3/uL (0.5-4.7); ABSOLUTE MONOCYTES (AUTO) 0.8 10^3/uL (0.1-1.4); ABSOLUTE NEUT (AUTO) 8.3 10^3/uL (1.7-8.2); BASOPHILS % (AUTO) 0.3 % (0-2); HEMATOCRIT 45.1 % (37.9-51.0); HEMOGLOBIN 14.7 g/dL (13.5-17.0); LYMPHOCYTES % (AUTO) 8.8 % (13-45); MEAN CORPUSCULAR HEMOGLOBIN 30.3 pg (27.0-33.4); MEAN CORPUSCULAR HGB CONC 32.5 g/dL (32.0-36.0); MEAN CORPUSCULAR VOLUME 93 fl (80-97); RED BLOOD COUNT 4.84 10^6/uL (4.35-5.55); RED CELL DISTRIBUTION WIDTH 15.7 % (11.5-14.0); SEGMENTED NEUTROPHILS % (AUTO) 82.9 % (42-78)
[2017-08-28 05:26] LABS: ANION GAP 11 (5-19); BLOOD UREA NITROGEN 52 mg/dL (7-20); CALCIUM 9.2 mg/dL (8.4-10.2); CARBON DIOXIDE 35 mmol/L (22-30); CHLORIDE 93 mmol/L (98-107); CREATININE RESULT 1.66 mg/dL (0.52-1.25); GLUCOSE 172 mg/dL (75-110); SODIUM 139.4 mmol/L (137-145)
[2017-08-28] MEDS: HYDRALAZINE HCL 10 MG TABLET PO SCH (05:49)
[2017-08-28] MEDS: NYSTATIN CREAM 15 GM TP SCH (07:59)
[2017-08-28] MEDS: SILDENAFIL CITRATE 20 MG TABLET PO SCH ×2 (08:00→11:21)
[2017-08-28] MEDS: FLUTICASONE NASAL SPRAY 50 MCG/SPRY 120 SPRAY/16 GM NASL SCH (08:00)
[2017-08-28] MEDS: NYSTATIN/DEXAMETH/DIPHEN SUSP 120 ML PO SCH (08:00)
[2017-08-28] MEDS: BUDESONIDE/FORMOTEROL 160-4.5 MCG 60 PUFF/6 GM MDI IH SCH (08:00)
[2017-08-28] MEDS: FAMOTIDINE 20 MG TABLET PO SCH (08:03)
[2017-08-28] MEDS: MORPHINE SULFATE 10 MG/ML INJ IV PRN (08:05)
[2017-08-28] MEDS: FUROSEMIDE INJ/PF 40 MG/4 ML SDV IV SCH (08:05)
[2017-08-28] MEDS: LEVOFLOXACIN 750 MG/D5W RTU 750 MG/150 ML RTUPB IV SCH (08:06)
[2017-08-28] MEDS: ENOXAPARIN SODIUM INJ 40 MG/0.4 ML DISP.SYRIN SUBCUT SCH (08:07)
[2017-08-28] MEDS ORDERED: PREDNISONE 20 MG TABLET PO SCH (10:00)
[2017-08-28] MEDS ORDERED: ALLOPURINOL 100 MG TABLET PO SCH (10:00)
[2017-08-28] MEDS ORDERED: ASPIRIN 81 MG TABLET, ENT COATED PO SCH (10:00)
[2017-08-28 12:29] VITALS: BP 143/106
--- NOTE | 2017-08-28 13:58 | PDOC DISCHARGE SUMMARY ---
General - Admit/Disc Date/PCP Admission Date/Primary Care Provider: 08/23/17 16:58 Discharge Date: 08/28/17 - Discharge Diagnosis (1) Acute on chronic respiratory failure with hypoxemia Is this a current diagnosis for this admission?: Yes (2) CHF (congestive heart failure) Is this a current diagnosis for this admission?: Yes (3) COPD with exacerbation Is this a current diagnosis for this admission?: Yes (4) Gastroesophageal reflux disease Is this a current diagnosis for this admission?: Yes (5) Obesity Is this a current diagnosis for this admission?: Yes (6) Obstructive sleep apnea (adult) (pediatric) Is this a current diagnosis for this admission?: Yes (7) Pulmonary hypertension Is this a current diagnosis for this admission?: Yes (8) Non-STEMI (non-ST elevated myocardial infarction) Is this a current diagnosis for this admission?: Yes - Additional Information Resuscitation Status: Do Not Resuscitate Discharge Diet: Cardiac Discharge Activity: Activity As Tolerated, Balance Activity w/Rest, Energy Conservation, Weigh Daily Home Medications: Albuterol Sulfate [Proair HFA] 2 puff IN Q4HP PRN 08/24/17 Allopurinol [Zyloprim 100 mg Tablet] 100 mg PO DAILY 08/24/17 Aspirin [Aspirin EC] 81 mg PO DAILY 08/24/17 Cimetidine [Tagamet 400 mg Tablet] 400 mg PO DAILY 08/24/17 Docusate Sodium [Stool Softener] 250 mg PO DAILY 08/24/17 Fluticasone Propionate [Flonase Allergy Relief] 1 spray NASL Q12 08/24/17 Hydrocodone Bit/Acetaminophen [Hydrocodon-Acetaminophn 10-325] 1 tab PO Q12HP PRN 08/24/17 Ipratropium/Albuterol Sulfate [Duoneb 3 ml Ampul] 3 ml NEB RTQ4HP PRN 08/24/17 Budesonide/Formoterol Fumarate [Symbicort HFA 160-4.5 mcg Inhaler 6 gm] 2 puff IH Q12 #0 inhaler 08/28/17 Hydralazine HCl [Apresoline 10 mg Tablet] 10 mg PO Q8 #90 tablet 08/28/17 Levalbuterol HCl [Xopenex Neb 1.25 mg/3 ml Ampul] 1.25 mg NEB RTQ4HP PRN #30 vial.neb 08/28/17 Nystatin [Mycostatin Cream 15 gm] 1 applic TP TID tube 08/28/17 Prednisone [Deltasone 20 mg Tablet] 40 mg PO ASDIR PRN #15 tablet 08/28/17 Sildenafil Citrate [Revatio 20 mg Tablet] 20 mg PO MEALS #90 tablet 08/28/17 Tamsulosin HCl [Flomax 0.4 mg Cap.sr] 0.4 mg PO PCSUPPER #30 cap.sr.24h History of Present Illness History of Present Illness: JULIETH BRYAN is a 67 year old male with COPD who was admitted with acute respiratory failure. See the details of admission as outlined below by the admitting physician. History of Present Illness Admission Date/PCP: August 23, 2017. Patient complains of: Cough and shortness of breath. History of Present Illness: JULIETH BRYAN is a 67 year old male who has a history of COPD and congestive heart failure who presents with shortness of breath and cough for the last 4 days. He reports that 4 days ago he began to have a cough productive of white sputum. Also has had some near syncopal episodes associated with coughing paroxysms. He also reports having a low-grade temperature 101.0. He also reports having orthopnea as well as PND. He also has had some worsening lower extremity edema. He has had dyspnea on exertion but denies any chest pain. He has a history of atrial fibrillation has had some episodes of tachycardia. He also reports having some weight gain. He has been taking Bumex with regularity. He has a history of severe pulmonary hypertension secondary to obstructive sleep apnea. He refuses to wear his CPAP because of claustrophobia. He also has complaints of chronic low back pain and requests something for that. Patient is concerned that he has pneumonia although chest x-ray did not show an obvious pneumonia he does have evidence for acute on chronic systolic congestive heart failure along with an acute COPD exacerbation. Hospital Course Hospital Course: Patient was admitted to the hospital. He underwent diuresis with Lasix IV twice a day. The patient was maintained on nasal cannula oxygen. He is supposed to be using bilevel Pap. 10 years ago this was prescribed to him and the patient states that he could not tolerated. He states that he is not going to use it ever. Dr. Valle was consulted during this admission and made recommendations as to how the patient could better manage his pulmonary hypertension. He was started on hydralazine as well as Viagra/Revatio. The patient's troponins were found to be elevated as well. It was felt that he had a type II PR. He was managed medically. Overall the patient did well. His respiratory status improved. He was able to ambulate around his room and into the hallway. The patient will need to follow-up with Dr. Valle as an outpatient as well as with his PCP. Physical Exam Vital Signs: Temp Pulse Resp BP Pulse Ox 98.0 F 88 18 106/49 L 92 08/27/17 23:28 08/28/17 04:00 08/28/17 04:00 08/27/17 23:28 08/28/17 04:00 Intake & Output 08/27/17 08/28/17 08/29/17 06:59 06:59 06:59 Intake Total 1915 2130 Output Total 4657 3300 Balance -2710 -1170 Weight 118.1 kg 119.4 kg GENERAL: This is a well-developed, well-nourished obese white male sitting in his chair currently in no acute distress. HEART: Regular rate and rhythm. 2 out of 6 murmurs. No rubs or gallops. LUNGS: Diminished at the bases bilaterally with equal rise and fall of the chest. The patient's oxygen is on top of his head. ABDOMEN: Soft, nontender, nondistended with normoactive bowel sounds EXTREMETIES: No clubbing, cyanosis. Trace nonpitting edema. 2+ peripheral pulses bilaterally. NEURO: Awake, alert and oriented 3. Cranial nerves II through XII are grossly intact. Results Laboratory Results: 08/28/17 03:58 08/28/17 03:58 08/28/17 08/28/17 03:58 03:58 WBC 10.0 RBC 4.84 Hgb 14.7 Hct 45.1 MCV 93 MCH 30.3 MCHC 32.5 RDW 15.7 H Plt Count 230 Seg Neutrophils % 82.9 H Lymphocytes % 8.8 L Monocytes % 8.0 Eosinophils % 0.0 Basophils % 0.3 Absolute Neutrophils 8.3 H Absolute Lymphocytes 0.9 Absolute Monocytes 0.8 Absolute Eosinophils 0.0 Absolute Basophils 0.0 Sodium 139.4 Potassium 5.0 Chloride 93 L Carbon Dioxide 35 H Anion Gap 11 BUN 52 H Creatinine 1.66 H Est GFR ( Amer) 50 L Est GFR (Non-Af Amer) 41 L Glucose 172 H Calcium 9.2 Magnesium 2.0 08/23/17 08/23/17 08/24/17 23:13 23:13 05:21 Creatine Kinase 98 95 CK-MB (CK-2) 4.66 H Troponin I 0.312 08/24/17 08/26/17 08/27/17 05:21 14:19 13:12 Creatine Kinase CK-MB (CK-2) 7.20 H Troponin I 1.070 0.412 0.345 Impressions: Chest X-Ray 08/23/17 11:30 IMPRESSION: HEART ENLARGED WITHOUT FAILURE. NO SIGNIFICANT CHANGE. Qualifiers PATEINT BEING DISCHARGED WITH ANY OF THE FOLLOWING DIAGNOSIS?: No, Heart Failure Plan Time Spent: Less than 30 Minutes
== END 2017-08-28 12:25 | disposition home or self-care (01) | DRG 280 ==
LOC: ER 10:33 → EH 16:58 → 3N 18:16
PROVIDERS: ADMIT Internal Medicine; ATTEND Internal Medicine
PROC: 5A09457 Assistance with Respiratory Ventilation, 24-96 Consecutive Hours, Continuous Positive Airway Pressure (ICD-10-PCS; principal; 2017-08-23)
DX: I13.0 Hypertensive heart and chronic kidney disease with heart failure and stage 1 through stage 4 chronic kidney disease, or unspecified chronic kidney disease (principal); I50.23 Acute on chronic systolic (congestive) heart failure; I21.A1 Myocardial infarction type 2; J96.21 Acute and chronic respiratory failure with hypoxia; J96.22 Acute and chronic respiratory failure with hypercapnia; J44.1 Chronic obstructive pulmonary disease with (acute) exacerbation; N17.9 Acute kidney failure, unspecified; I25.10 Atherosclerotic heart disease of native coronary artery without angina pectoris; N18.3 Chronic kidney disease, stage 3 (moderate); I48.91 Unspecified atrial fibrillation; I73.9 Peripheral vascular disease, unspecified; E66.9 Obesity, unspecified; Z68.36 Body mass index [BMI] 36.0-36.9, adult; K21.9 Gastro-esophageal reflux disease without esophagitis; M19.90 Unspecified osteoarthritis, unspecified site; Z96.612 Presence of left artificial shoulder joint; Z96.611 Presence of right artificial shoulder joint; I12.9 Hypertensive chronic kidney disease with stage 1 through stage 4 chronic kidney disease, or unspecified chronic kidney disease; I27.20 Pulmonary hypertension, unspecified; E87.5 Hyperkalemia; F40.240 Claustrophobia; Z66 Do not resuscitate; K44.9 Diaphragmatic hernia without obstruction or gangrene; M54.5 Low back pain; G89.29 Other chronic pain; E83.42 Hypomagnesemia; Z95.5 Presence of coronary angioplasty implant and graft; Z87.891 Personal history of nicotine dependence; Z82.49 Family history of ischemic heart disease and other diseases of the circulatory system; Z91.19 Patient's noncompliance with other medical treatment and regimen; Z82.5 Family history of asthma and other chronic lower respiratory diseases; Z88.2 Allergy status to sulfonamides; Z88.6 Allergy status to analgesic agent
CPT/HCPCS: 36415; 36600; 71010; 80048; 80053; 82550; 82553; 82803; 83735; 83880; 84484; 85025; 85610; 93005; 93010; 94660; 94667; 94668; 94799; 96374; 96375; 99291; J1650; J1940; J1956; J2270; J2405; J2920; J3475; J3490; J7512; J7620